=== PATIENT | male | born 1970 ===

== ENCOUNTER 2020-11-17 07:43 | Outpatient (REF) | payer BC, SELFPAY ==
[2020-11-17 08:36] LABS: Basophils Percent Auto 0.6 % (0-2); Hemoglobin 14.8 g/dl (14.0-18.0); Imm Gran Abs Auto 0.03 X10*3/uL (0.00-0.03); Imm Gran Pct Auto 0.4 % (0.0-0.4); Lymphocytes Absolute Auto 1.4 X10*3/uL (1.2-4.9); Mean Corpuscular Hemoglobin 31.7 pg (27.0-33.0); Monocytes Absolute Auto 0.5 X10*3/uL (0.1-1.2); Monocytes Percent Auto 6.3 % (2-11); Neutrophils Percent Auto 70.2 % (45-73); PLT CLUMP 1; Red Blood Count 4.67 X10*6/uL (4.60-5.80); Red Cell Distribution Width 12.6 % (11.0-16.0); SCAN SMEAR FLAG 1
[2020-11-17 08:38] LABS: Eosinophils Absolute Auto 0.2 X10*3/uL (0.0-0.4); Eosinophils Percent Auto 2.8 % (0-4); Hematocrit 43.8 % (42-52); Lymphocytes Percent Auto 19.7 % (20-40); Mean Corpuscular HGB Conc 33.8 g/dl (31.0-36.0); Mean Corpuscular Volume 93.8 fL (80-98); Mean Platelet Volume 9.9 fL (9.4-12.4); Platelet Count 136 X10*3/uL (160-400); White Blood Count 7.1 X10*3/uL (4.8-10.8)
[2020-11-17 09:01] LABS: Alanine Aminotransferase 15 U/L (0-40); Albumin Level 4.3 g/dL (3.5-5.0); Alkaline Phosphatase 83 U/L (39-117); Anion Gap 10 (12-20); Aspartate Amino Transferase 15 U/L (5-37); Bilirubin Total 0.5 mg/dL (0.0-1.0); Blood Urea Nitrogen 14 mg/dL (9-16); Calcium 8.4 mg/dL (8.4-10.2); Carbon Dioxide 28 mmol/L (22-29); Chloride 108 mmol/L (96-108); Cholesterol 170 mg/dL; Estimated Glomerular Filt Rate > 60; Glucose Fasting 96 mg/dL (60-99); HDL Cholesterol 37 mg/dL; LDL Cholesterol Calculated 117 mg/dl; Potassium 4.2 mmol/L (3.3-5.1); Sodium 142 mmol/L (135-145); Triglycerides 80 mg/dL
[2020-11-17 09:21] LABS: Creatinine Urine 180.02 mg/dL; Microalbum/Creatinine Ratio Ur 8.8 ug/mg cr
[2020-11-17 09:23] LABS: Prostate Specific Antigen Scr 3.91 ng/mL (<0.05-4.0); Thyroid Stimulating Hormone 1.01 uIU/mL (0.32-4.0)
== END 2020-11-17 07:44 | disposition home or self-care (01) ==
LOC: HO.LAB 07:43
PROVIDERS: Visit Provider Physician Assistant
DX: I10 Essential (primary) hypertension (principal); Z12.5 Encounter for screening for malignant neoplasm of prostate
CPT/HCPCS: 36415; 80053; 80061; 82043; 84153; 84443; 85025

== ENCOUNTER 2020-11-22 14:08 | Outpatient (REF) | payer BC, SELFPAY | END 2020-11-22 14:09 | disposition home or self-care (01) | LOC: HO.LNP 14:08 | PROVIDERS: Visit Provider Hospitalist | DX: B34.9 Viral infection, unspecified (principal); Z20.822 Contact with and (suspected) exposure to COVID-19 | CPT/HCPCS: U0003; U0005 ==

== ENCOUNTER 2021-04-05 14:41 | Outpatient (REF) | payer BC, SELFPAY ==
--- NOTE | ~2021-04-05 | CT_ITS ---
EXAMINATION: CT CHEST SCREENING CLINICAL INFORMATION: Smoking history COMPARISON: Previous chest CT most recent March 2014 TECHNIQUE: Multidetector volumetric CT imaging of the chest is performed without contrast using low dose technique. Additional 2D coronal and sagittal reformatted images and axial 3D maximum intensity projection (MIP) images are generated on the CT workstation. This CT examination was performed using dose optimization techniques as appropriate, variously including the following: *Automated exposure control *Adjustment of mA and/or kV according to patient size (this includes techniques or standardized protocols for targeted exams where dose is matched to indication/reason for exam; i.e. extremities or head) *Use of iterative reconstruction technique DLP: 98 mGy-cm FINDINGS: LUNGS: There is a 7 mm peripheral or subpleural right upper lobe nodule axial image 58 series 6 that is stable. There is a 5 mm right upper lobe nodule axial image 5 series 6 that is stable. There is a 4 mm peripheral or subpleural right upper lobe nodule axial image 141 series 6 that is stable. There is a 6 mm peripheral or subpleural right upper lobe nodule axial image 258 series 6 that is stable. There is a 5 mm right pulmonary nodule axial image 265 series 6 that is stable. There is a 2 mm peripheral right lower lobe nodule axial image 307 series 6 that is stable. There is a 2 mm peripheral right lower lobe nodule axial image 242 series 6 that is stable. There is a 2 mm peripheral left upper lobe nodule axial image 142 series 6 that is stable. There is a 3 mm peripheral or subpleural lingular nodule axial image 247 series 6 that is stable. There is a 4 x 7 mm peripheral or subpleural left lower lobe nodule axial image 218 series 6 that is stable. MEDIASTINUM: Small mediastinal lymph nodes. No enlarged lymph nodes are seen. The heart does not appear enlarged. There is mild atherosclerotic disease. There is no pericardial effusion. PLEURA: There is no pleural effusion. No pleural mass or thickening. AXILLA: No lymphadenopathy. UPPER ABDOMEN: Unremarkable OSSEOUS STRUCTURES: There are degenerative changes of the spine. CT/CT lung screening IMPRESSION: Small pulmonary nodules stable from previous exam most recent March 2014. ASSESSMENT: Lung-RADS category 2: Benign RECOMMENDATION: Annual low-dose chest CT follow-up recommended.
== END 2021-04-05 14:42 | disposition home or self-care (01) ==
LOC: HO.CT 14:41
PROVIDERS: Visit Provider Surgery
DX: F17.210 Nicotine dependence, cigarettes, uncomplicated (principal); Z80.1 Family history of malignant neoplasm of trachea, bronchus and lung
CPT/HCPCS: 71271

== ENCOUNTER 2021-05-22 11:25 | Outpatient (REF) | payer OTHER, SELFPAY | END 2021-05-22 11:26 | disposition home or self-care (01) | LOC: HO.LNP 11:25 | PROVIDERS: Visit Provider Internal Medicine | DX: Z20.822 Contact with and (suspected) exposure to COVID-19 (principal); J06.9 Acute upper respiratory infection, unspecified | CPT/HCPCS: U0003; U0005 ==

== ENCOUNTER → 2021-10-03 15:14 | Outpatient (REF) | payer OTHER, SELFPAY | LOC: HO.SL 15:14 | PROVIDERS: PCP Physician Assistant; Visit Provider Physician Assistant | DX: R06.81 Apnea, not elsewhere classified (principal) | CPT/HCPCS: 95806 ==

== ENCOUNTER → 2021-10-09 10:42 | Outpatient (BNVA) | payer OTHER, SELFPAY | PROVIDERS: PCP Physician Assistant; Visit Provider Physician Assistant | DX: S30.0XXA Contusion of lower back and pelvis, initial encounter (principal); W01.0XXA Fall on same level from slipping, tripping and stumbling without subsequent striking against object, initial encounter | CPT/HCPCS: 99213 ==

== ENCOUNTER 2022-08-13 05:59 | Outpatient (REF) | payer OTHER, SELFPAY ==
[2022-08-13 07:36] LABS: Hematocrit 46.2 % (42.0-52.0); Hemoglobin 15.5 g/dl (14.0-18.0); Mean Corpuscular HGB Conc 33.5 g/dl (31.0-36.0); Mean Corpuscular Hemoglobin 32.4 pg (27.0-33.0); Mean Corpuscular Volume 96.5 fL (80.0-98.0); Platelet Count 161 X10*3/uL (160-400); Red Blood Count 4.79 X10*6/uL (4.60-5.80); Red Cell Distribution Width 12.7 % (11.0-16.0); White Blood Count 6.2 X10*3/uL (4.8-10.8)
[2022-08-13 08:04] LABS: Alanine Aminotransferase 22 U/L (0-40); Albumin Level 4.4 g/dL (3.5-5.0); Alkaline Phosphatase 89 U/L (39-117); Anion Gap 13 (12-20); Aspartate Amino Transferase 20 U/L (5-37); Bilirubin Total 0.7 mg/dL (0.0-1.0); Blood Urea Nitrogen 14 mg/dL (9-16); Calcium 9.1 mg/dL (8.4-10.2); Carbon Dioxide 29 mmol/L (22-29); Chloride 104 mmol/L (96-108); Cholesterol 202 mg/dL; Estimated Glomerular Filt Rate > 60; Glucose Fasting 97 mg/dL (60-99); HDL Cholesterol 42 mg/dL; LDL Cholesterol Calculated 138 mg/dl; Potassium 4.4 mmol/L (3.3-5.1); Sodium 142 mmol/L (135-145); Total Protein 7.3 g/dL (6.5-8.0); Triglycerides 114 mg/dL
[2022-08-13 08:29] LABS: TSH reflex Free T4 1.13 uIU/mL (0.32-4.0)
[2022-08-13 09:17] LABS: Creatinine Urine 90.54 mg/dL; Microalbum/Creatinine Ratio Ur 8.8 ug/mg cr
[2022-08-13 09:19] LABS: Prostate Specific Antigen Scr 3.45 ng/mL (<0.05-4.0)
== END 2022-08-13 06:00 | disposition home or self-care (01) ==
LOC: HO.LAB 05:59
PROVIDERS: PCP Physician Assistant; Visit Provider Physician Assistant
DX: Z12.5 Encounter for screening for malignant neoplasm of prostate (principal); I10 Essential (primary) hypertension
CPT/HCPCS: 36415; 80053; 80061; 82043; 84153; 84443; 85027

== ENCOUNTER → 2022-10-29 08:47 | Outpatient (BNVA) | payer OTHER, SELFPAY | PROVIDERS: PCP Physician Assistant; Visit Provider Physician Assistant | DX: Z13.89 Encounter for screening for other disorder (principal) ==

== ENCOUNTER → 2022-10-30 13:19 | Outpatient (BNVA) | payer OTHER, SELFPAY | PROVIDERS: PCP Physician Assistant; Visit Provider Physician Assistant Surgical | DX: E66.01 Morbid (severe) obesity due to excess calories (principal); G47.33 Obstructive sleep apnea (adult) (pediatric); Z68.41 Body mass index [BMI] 40.0-44.9, adult | CPT/HCPCS: 99202 ==

== ENCOUNTER 2022-11-05 06:08 | Outpatient (REF) | payer OTHER, SELFPAY ==
--- NOTE | ~2022-11-05 | XR_ITS ---
EXAMINATION: XR CHEST CLINICAL INFORMATION: Bariatric service evaluation. E66.01 COMPARISON: Portable AP chest 08/15/2011 TECHNIQUE: 3 views of the chest were obtained. FINDINGS: Lungs clear. No airspace consolidation or groundglass opacity or effusion. No hyperinflation. Heart size normal. Hilar and mediastinal contours are normal. There are multilevel degenerative changes thoracic spine. XR/XR chest 2V IMPRESSION: Unremarkable examination.
[2022-11-05 06:22] LABS: MANUAL DIFF FLAG NO
--- NOTE | 2022-11-05 06:25 | ECG_ITS ---
Test Reason : e66.01 Blood Pressure : / mmHG Vent. Rate : 078 BPM Atrial Rate : 078 BPM P-R Int : 196 ms QRS Dur : 098 ms QT Int : 390 ms P-R-T Axes : 059 -59 094 degrees QTc Int : 444 ms Normal sinus rhythm Minimal voltage criteria for LVH, may be normal variant ( Rj product ) Abnormal ECG When compared with ECG of 15-AUG-2011 08:30, No significant change was found Referred By: Alejandro Fernandez Electronically Signed By:ISELA GARCIA
[2022-11-05 07:48] LABS: Basophils Percent Auto 0.7 % (0-2); Eosinophils Absolute Auto 0.2 X10*3/uL (0.0-0.4); Eosinophils Percent Auto 2.9 % (0-4); Hemoglobin 16.3 g/dl (14.0-18.0); Imm Gran Abs Auto 0.06 X10*3/uL (0.00-0.03); Imm Gran Pct Auto 1.1 % (0.0-0.4); Lymphocytes Absolute Auto 1.2 X10*3/uL (1.2-4.9); Lymphocytes Percent Auto 21.3 % (20-40); Mean Corpuscular HGB Conc 35.4 g/dl (31.0-36.0); Mean Corpuscular Hemoglobin 32.9 pg (27.0-33.0); Mean Corpuscular Volume 92.9 fL (80.0-98.0); Mean Platelet Volume 9.9 fL (9.4-12.4); Monocytes Absolute Auto 0.4 X10*3/uL (0.1-1.2); Monocytes Percent Auto 7.8 % (2-11); Neutrophils Absolute Auto 3.7 x10*3/uL (2.0-8.3); Neutrophils Percent Auto 66.2 % (45-73); Platelet Count 146 X10*3/uL (160-400); Red Blood Count 4.95 X10*6/uL (4.60-5.80); Red Cell Distribution Width 12.7 % (11.0-16.0); White Blood Count 5.5 X10*3/uL (4.8-10.8)
[2022-11-05 08:18] LABS: Estimated Average Glucose 91 mg/dL; Hemoglobin A1c % 4.8 %
[2022-11-05 08:23] LABS: Alanine Aminotransferase 21 U/L (0-40); Albumin Level 4.4 g/dL (3.5-5.0); Alkaline Phosphatase 87 U/L (39-117); Anion Gap 11 (12-20); Aspartate Amino Transferase 21 U/L (5-37); Blood Urea Nitrogen 16 mg/dL (9-16); C Reactive Protein 0.17 mg/dL (< or = 0.50); Calcium 9.3 mg/dL (8.4-10.2); Carbon Dioxide 29 mmol/L (22-29); Chloride 104 mmol/L (96-108); Cholesterol 207 mg/dL; Estimated Glomerular Filt Rate > 60; Glucose Random 94 mg/dL (60-115); HDL Cholesterol 33 mg/dL; Iron 123 mcg/dL (45-160); LDL Cholesterol Calculated 152 mg/dl; Percent Iron Saturation 41 % (15-50); Potassium 4.1 mmol/L (3.3-5.1); Sodium 140 mmol/L (135-145); Total Iron Binding Capacity 302 mcg/dL (228-428); Total Protein 7.4 g/dL (6.5-8.0); Triglycerides 110 mg/dL; Unsaturated Iron Binding 179 ug/dL
[2022-11-05 08:54] LABS: Ferritin 103 ng/mL (20-250); Folate 12.9 ng/mL (> or = 4.0); Insulin 13 uU/mL (2-29); TSH reflex Free T4 1.31 uIU/mL (0.32-4.0); Vitamin B12 444 pg/mL (200-900)
[2022-11-07 13:19] LABS: Calcium (PTHI) 9.1 mg/dL (8.6-10.3); PTHI 29 pg/mL (16-77)
[2022-11-10 22:19] LABS: Vitamin A 42 mcg/dL (38-98)
[2022-11-11 01:08] LABS: Zinc 104 mcg/dL (60-130)
[2022-11-11 14:33] LABS: Vitamin B1 10 nmol/L (8-30)
== END 2022-11-05 06:09 | disposition home or self-care (01) ==
LOC: HO.LAB 06:08
PROVIDERS: PCP Physician Assistant; Visit Provider Physician Assistant Surgical
DX: E66.01 Morbid (severe) obesity due to excess calories (principal); I10 Essential (primary) hypertension
CPT/HCPCS: 36415; 71046; 80053; 80061; 82306; 82607; 82728; 82746; 83036; 83525; 83540; 83970; 84425; 84443; 84590; 84630; 85025; 86140; 93005

== ENCOUNTER → 2022-11-13 11:08 | Outpatient (BNVA) | payer OTHER, SELFPAY | PROVIDERS: PCP Physician Assistant; Referring Provider Physician Assistant Surgical; Visit Provider Dietitian, Registered | DX: E66.01 Morbid (severe) obesity due to excess calories (principal) | CPT/HCPCS: 97802 ==

== ENCOUNTER → 2022-11-19 09:15 | Outpatient (BNVA) | payer OTHER, SELFPAY | PROVIDERS: PCP Physician Assistant; Visit Provider Physician Assistant Surgical | DX: E66.9 Obesity, unspecified (principal); Z68.41 Body mass index [BMI] 40.0-44.9, adult; Z11.0 Encounter for screening for intestinal infectious diseases | CPT/HCPCS: 99211; 99212 ==

== ENCOUNTER 2022-11-19 16:01 | Outpatient (REF) | payer OTHER, SELFPAY ==
[2022-11-23 12:08] LABS: H Pylori Breath Test Negative (Negative)
== END 2022-11-19 16:02 | disposition home or self-care (01) ==
LOC: HO.LNP 16:01
PROVIDERS: Visit Provider Physician Assistant Surgical
DX: E66.01 Morbid (severe) obesity due to excess calories (principal); I10 Essential (primary) hypertension
CPT/HCPCS: 83013

== ENCOUNTER → 2022-11-25 14:00 | Outpatient (BNVA) | payer OTHER, SELFPAY | PROVIDERS: PCP Physician Assistant; Visit Provider Dietitian, Registered | DX: E66.01 Morbid (severe) obesity due to excess calories (principal); Z71.3 Dietary counseling and surveillance | CPT/HCPCS: 97803 ==

== ENCOUNTER → 2022-11-27 10:00 | Outpatient (BNVA) | payer OTHER, SELFPAY | PROVIDERS: PCP Physician Assistant; Referring Provider Physician Assistant Surgical; Visit Provider Counselor Mental Health | DX: F17.210 Nicotine dependence, cigarettes, uncomplicated (principal); E66.01 Morbid (severe) obesity due to excess calories | CPT/HCPCS: 90791 ==

== ENCOUNTER → 2022-12-09 08:20 | Outpatient (BNVA) | payer OTHER, SELFPAY | PROVIDERS: PCP Physician Assistant; Visit Provider Surgery | DX: E66.01 Morbid (severe) obesity due to excess calories (principal); G47.33 Obstructive sleep apnea (adult) (pediatric); G47.34 Idiopathic sleep related nonobstructive alveolar hypoventilation; R06.81 Apnea, not elsewhere classified; R06.83 Snoring; I10 Essential (primary) hypertension; D69.6 Thrombocytopenia, unspecified; F17.210 Nicotine dependence, cigarettes, uncomplicated | CPT/HCPCS: 99212 ==

== ENCOUNTER 2022-12-23 07:33 | Outpatient (REF) | payer OTHER, SELFPAY ==
--- NOTE | ~2022-12-23 | US_ITS ---
EXAMINATION: US COMPLETE ABDOMEN WITH LIVER ELASTOGRAPHY CLINICAL INFORMATION: Morbid/severe obesity. COMPARISON: None available. TECHNIQUE: Real-time imaging of the abdominal viscera. Noninvasive ultrasound liver fibrosis assessment is performed using Bryan ElastPQ point quantification shear wave elastography (2D-SWE) with a C5-2 MHz transducer. Multiple elastography samples are obtained. FINDINGS: PANCREAS: The visualized pancreatic head is normal in appearance. The body and tail of the pancreas are obscured from visualization by the overlying bowel gas. ABDOMINAL AORTA: The proximal, middle, and distal aortic segments are normal in caliber. The proximal abdominal aorta is slightly prominent but no AAA seen. INFERIOR VENA CAVA: Visualized portions are normal. LIVER: Normal. The liver demonstrates normal size, contour and echogenicity. No focal lesion or intrahepatic biliary duct dilatation. The right lobe measures 19.6 cm in length. The left lobe measures 12.4 cm in length. Portal flow is hepatopedal. Shear wave liver elastography median stiffness is 1.12 m/s (reference: normal median stiffness is 1.3 m/s or less). IQR/median stiffness to assess sampling precision is 0.11 (reference: good quality data set is IQR/median stiffness of 0.15 or less). GALLBLADDER: Gallbladder wall thickness is 0.2 cm The gallbladder is physiologically distended without evidence of stones, sludge, polyps, wall thickening or pericholecystic fluid. COMMON BILE DUCT: Normal in caliber measuring 0.5 cm in diameter. RIGHT KIDNEY: There are anechoic cysts with peripheral calcifications in midpole with cysts measuring 1.0 x 0.9 x 0.9 cm. No renal calculi or focal parenchymal lesions. There is no hydronephrosis. The kidney measures 13.3 cm in maximum dimension. LEFT KIDNEY: There is an anechoic cyst in the upper pole measuring 1.6 x 0.9 x 1.0 cm. There are a few echogenic foci seen throughout the kidneys. No caliectasis No renal calculi or focal parenchymal lesions. The kidney measures 13.4 cm in maximum dimension. SPLEEN: Normal. The spleen measures 15.1 cm in maximum dimension. FREE FLUID: None. US/US abdomen comp w elastography IMPRESSION: 1. Bilateral renal cysts with complex cyst Bosniak type II right kidney. 2. Liver Elastography: Median liver stiffness 1.12 m/s corresponding to high probability normal exam. REFERENCE: Society of Radiologists in Ultrasound Liver Stiffness Thresholds (2020): LIVER STIFFNESS THRESHOLDS: *Liver Stiffness equal or less than 1.3 m/s: High probability of being normal. *Liver Stiffness less than 1.7 m/s: In the absence of other known clinical signs, rules out compensated advanced chronic liver disease. *Liver Stiffness 1.7-2.1 m/s: Suggestive of compensated advanced chronic liver disease but need further test for confirmation. *Liver Stiffness over 2.1 m/s: Rules in compensated advanced chronic liver disease. *Liver Stiffness over 2.4 m/s: Suggestive of clinically significant portal hypertension. QUALITY OF DATA SET: *IQR/Median value equal or less than 0.15 implies a quality data set. *IQR/Median value over 0.15 implies a poor quality data set. SIGNIFICANT CHANGE FROM PRIOR EXAM: Significant change if liver stiffness measurement is 10% or greater from prior exam. OTHER CONSIDERATIONS: The stage of liver fibrosis may be overestimated in the setting of acute hepatitis, liver inflammation, elevated liver function tests, hepatic vascular congestion, obstructive cholestasis, non-fasting state, and infiltrative diseases such as amyloidosis and lymphoma. In some patients with NAFLD, the liver stiffness thresholds for compensated advanced chronic liver disease may be lower. In causes other than viral hepatitis and NAFLD, liver stiffness thresholds are not well established.
--- NOTE | ~2022-12-23 | FL_ITS ---
EXAMINATION: XR FLUOROSCOPY UPPER GI WITH AIR CLINICAL INFORMATION: Severe obesity due to excess calories COMPARISON: None available. TECHNIQUE: Upper GI air-contrast study. FINDINGS: Following oral administration of thick barium and effervescent granules there is normal propagation of bolus from the oral cavity through the pharynx, esophagus into stomach without obstruction, narrowing or stricture. There is no extrinsic compression. On placing patient supine and prone lying the course, caliber and peristalsis of the stomach, duodenal bulb and the sweep is normal. There is slight increased flocculation of barium in the distal stomach question increased hyperacidity. The mucosal pattern of the stomach, duodenal bulb and the sweep is normal. FLUOROSCOPY TIME: 2.2 minutes DOSE AREA PRODUCT: 90.099 uGy-m2 (microgray-meter squared) FL/FL upper GI w air IMPRESSION: Unremarkable upper GI air-contrast study.
== END 2022-12-23 07:34 | disposition home or self-care (01) ==
LOC: HO.US 07:33
PROVIDERS: PCP Physician Assistant; Visit Provider Physician Assistant Surgical
DX: Z01.818 Encounter for other preprocedural examination (principal); E66.01 Morbid (severe) obesity due to excess calories; K21.9 Gastro-esophageal reflux disease without esophagitis; I10 Essential (primary) hypertension
CPT/HCPCS: 74246; 76705; 76981

== ENCOUNTER 2023-08-17 06:07 | Outpatient (REF) | payer OTHER, SELFPAY ==
[2023-08-17 07:44] LABS: Hematocrit 48.6 % (42.0-52.0); Hemoglobin 16.6 g/dl (14.0-18.0); Mean Corpuscular HGB Conc 34.2 g/dl (31.0-36.0); Mean Corpuscular Hemoglobin 32.9 pg (27.0-33.0); Mean Corpuscular Volume 96.4 fL (80.0-98.0); Mean Platelet Volume 10.1 fL (9.4-12.4); Platelet Count 147 X10*3/uL (160-400); Red Blood Count 5.04 X10*6/uL (4.60-5.80); White Blood Count 5.3 X10*3/uL (4.8-10.8)
[2023-08-17 08:15] LABS: Alanine Aminotransferase 13 U/L (0-40); Albumin Level 4.1 g/dL (3.5-5.0); Alkaline Phosphatase 84 U/L (39-117); Anion Gap 11 (12-20); Aspartate Amino Transferase 15 U/L (5-37); Bilirubin Total 0.7 mg/dL (0.0-1.0); Blood Urea Nitrogen 10 mg/dL (9-16); Calcium 8.8 mg/dL (8.4-10.2); Carbon Dioxide 29 mmol/L (22-29); Chloride 105 mmol/L (96-108); Cholesterol 181 mg/dL (<200); Estimated Glomerular Filt Rate > 60; Glucose Fasting 100 mg/dL (60-99); HDL Cholesterol 42 mg/dL (>40); LDL Cholesterol Calculated 122 mg/dL (<100); Potassium 3.8 mmol/L (3.3-5.1); Sodium 141 mmol/L (135-145); Triglycerides 85 mg/dL (<150)
[2023-08-17 09:09] LABS: Creatinine Urine 162.99 mg/dL; Microalbum/Creatinine Ratio Ur 23.9 ug/mg cr (<30)
== END 2023-08-17 06:08 | disposition home or self-care (01) ==
LOC: HO.LAB 06:07
PROVIDERS: PCP Physician Assistant; Visit Provider Physician Assistant
DX: I10 Essential (primary) hypertension (principal); E78.9 Disorder of lipoprotein metabolism, unspecified; D69.6 Thrombocytopenia, unspecified
CPT/HCPCS: 36415; 80053; 80061; 82043; 82570; 85027

== ENCOUNTER 2023-08-19 07:40 | Outpatient (AMB) | payer OTHER, SELFPAY ==
[2023-08-19 07:52] VITALS: BP 152/98; PULSE 82; O2SAT 95; BMI 39.3
--- NOTE | 2023-08-19 07:52 | A.OFFPC_ITS ---
Vital Signs 08/19/23 07:52 Height 5 ft 11 in Weight 282 lb BMI 39.3 BP 152/98 H Blood Pressure Location Lt brachial Position Sitting Pulse 82 Pulse Source Pulse Oximeter Pulse Oximetry (%) 95 Oxygen Delivery Method Room Air Intake Visit Reasons: f/u HTN/ weight Intake Note: Patient had 5 cups of coffee this morning. Allergies No Known Allergies Allergy (Verified 08/19/23 08:03) Medication List - Last Reconciled 08/19/23 by Juwan Gupta PA-C amlodipine 10 mg PO DAILY 90 days lisinopril 40 mg PO DAILY 90 days oxycodone 5 mg PO Q6H PRN 7 days Tobacco use date assessed: 02/17/23 Dental Screening Dental Screen Date: 08/19/23 Did you have a dental visit in the last 12 months?: No Did you have a dental problem in the last 6 months where you did not have access to dental care?: No Was dental information given to patient?: Patient has dentist HPI f/u HTN/ weight HPI Details Joe is a 52-year-old male here today for follow-up visit. . Patient's past medical history significant for hypertension, pulmonary nodule, lower back pain with radiculopathy left side, obesity. ? Obstructive sleep apnea--interval history--> was not able to complete a full sleep study. Does have an elevated [place] Sleepiness Scale score. . Obesity: He does understand his BMI remains above 30. Has lost weight since last office visit by changing his diet. .. Tobacco dependency: He does understand he needs to quit smoking. He has cut down his smoking to 1-2 cigarettes per day. .. Hyperlipidemia: Most recent lipid panel showing much improved total cholesterol and LDL. ? .. ? HTN: Blood pressure today in office elevated, had 5 cups of coffee this morning.. .? He does check his blood pressure seldomly at home and reports 120s to 130 systolic.? Otherwise denies any chest discomfort, headaches, vision issues. .. Thrombocytopenia: Most recent platelet count 147 and is fairly stable. He otherwise denies any abnormal bleeding a bruising. Unclear etiology to patient's thrombocytopenia the likely due to his smoking and alcohol intake. Did have spleno megaly on abdominal imaging. ? .. ? Lumbar spine pain: Patient uses low-dose oxycodone 5mg on a very p.r.n. basis, 1 script 21 tabs will last 6 months. He does report taking a tramadol 50 mg from a friend which provided him better more long-lasting relief of his back pain. Will transition to using tramadol instead of oxycodone. ? .. ? Pulmonary nodule:? Most recent lung cancer screening done in October 2020 showing stable nodule repeat 1 year. Laboratory Tests 11/17/20 08/13/22 11/05/22 08:00 06:02 06:21 RBC Plt Count 136 L 161 146 L Creatinine Fasting Glucose Cholesterol 207 LDL Cholesterol, C alc 152 Urine Microalbumin 08/17/23 08/17/23 08/17/23 06: 06: 06:25 RBC 5.04 Plt Count Creatinine 0.66 Fasting Glucose 100 H Cholesterol 181 LDL Cholesterol, C alc 122 H Urine Microalbumin 39.0 PFSH Medical History (Updated 08/19/23 @ 08:21 by Juwan Gupta PA-C) Erectile dysfunction Obesity Lumbar spondylosis HTN (hypertension) Surgical History S/P appendectomy History of colonoscopy History of carpal tunnel surgery Family History Mother Lung cancer Father Lung cancer Brother No problems noted. 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 1. Little interest or pleasure in doing things: not at all 2. Feeling down, depressed, or hopeless: not at all 3. Trouble falling or staying asleep, or sleeping too much: not at all 4. Feeling tired or having little energy: not at all 5. Poor appetite or overeating: not at all 6. Feeling bad about yourself - or that you are a failure or have let yourself or your family down: not at all 7. Trouble concentrating on things, such as reading the newspaper or watching television: not at all 8. Moving or speaking so slowly that other people could have noticed. Or the opposite - being so fidgety or restless that you have been moving around a lot more than usual: not at all 9. Thoughts that you would be better off or of hurting yourself in some way: not at all Total score: 0 Depression Screening Interpretation: Negative Depression Screening Done: Yes 79764 - PHQ-9 Billing: Yes Source: Developed by Drs. Marcio Loomis, Georgina Alcantara, Camden Camacho and colleagues, with an educational dontrell from [employer]. Thrive Questionnaire Date Thrive assessed: 02/17/23 AUDIT C Alcohol Use Questionnaire (AUDIT-C) 1. How often do you have a drink containing alcohol?: 2-4 times a month 2. How many drinks containing alcohol do you have on a typical day when you are drinking?: 1 or 2 Total Score: 2 LASHON-7 AMB Questionnaire LASHON-7 Date LASHON - 7 assessed: 02/17/23 Source: Developed by Drs. Marcio Loomis, Georgina Alcantara, Camden Camacho and colleagues, with an educational dontrell from [employer]. Review of Systems Const Denies headache(s) Eyes Denies loss of vision ENT Denies vertigo, Denies dizziness, Denies headache(s) and Denies sore throat Card Denies chest pain, Denies leg edema and Denies lightheadedness Resp Denies cough, Denies hemoptysis and Denies wheezing GI Denies abdominal pain, Denies melena, Denies constipation, Denies diarrhea and Denies vomiting Denies dysuria, Denies urinary frequency and Denies urinary urgency Musc Denies arthralgias, Denies joint swelling, Denies numbness and Denies tingling Neuro Denies Abnormal speech present, Denies behavioral changes, Denies vertigo, Denies dizziness, Denies headache(s), Denies loss of vision, Denies memory loss, Denies numbness and Denies tingling Psych Denies anxiety, Denies behavioral changes, Denies depression, Denies memory loss and Denies panic attacks Nimesh/Lymph Denies easy bleeding and Denies easy bruising Aller/Immun Denies wheezing Physical exam (Primary Care) Vital Signs: Last Vital Signs Pulse 82 08/19/23 07:52 BP 152/98 H 08/19/23 07:52 Pulse Ox 95 08/19/23 07:52 Oxygen Delivery Method Room Air 08/19/23 07:52 BMI result Body Mass Index 39.3 BMI Assessment/Plan discussion: High Tobacco/Smoking Status: Tobacco use Status Tobacco use date assessed 02/17/23 08/19/23 07:58 Patient Tobacco Use Status Former Tobacco user 08/19/23 07:58 Tobacco use type Cigarette 08/19/23 07:58 e-Cigarette/Vaping Use Never Used 08/19/23 07:58 Are you ready to quit: No Tobacco cessation counseling provided: Yes Items discussed: Nicotine replacement and QuitWorks Relapse Prevention: discussed the importance of a supportive environment, discussed negative mood or depression after quitting, weight gain after smoking is common and discussed dietary, exercise and/or lifestyle changes Number of minutes spent counselin CPT code: 52569 - 4-10 Minutes PHQ-9: PHQ-9 Score PHQ-9: Total score 0 08/19/23 08:04 Depression Screening Interpretation: Negative Thrive Assessment: Date of Thrive Assessment Date Thrive assessed 02/17/23 08/19/23 07:58 Const Other: Morbidly obese General: healthy appearing, no acute distress, alert and awake Nutritional Appearance: well nourished Orientation/consciousness: oriented to person, oriented to place and oriented to time HENMT Ears: TM's normal bilaterally General nose exam: Normal nasal mucous membranes and turbinates present Eyes Conjunctivae: conjunctivae normal Sclerae: sclerae normal Pupils: Equal, round and reactive pupils present Neck Neck: Yes no lymphadenopathy and Yes no JVD Thyroid: Thyroid normal Carotids: bruit on the left Resp Effort & Inspection: normal respiratory effort and not tachypneic Auscultation: no crackles, no rales, no rhonchi and no wheezes Cardio Rate: regular rate Rhythm: regular rhythm Heart sounds: Murmur heart sound present systolic and normal S1 and S2 GI Palpation (GI): Soft to palpation, nontender, no hepatomegaly and no splenomegaly Auscultation: normal bowel sounds Skin General skin exam: no rashes or lesions noted and dry skin Neuro General: oriented to person, oriented to place and oriented to time Cranial nerves: Yes Equal, round and reactive pupils present Speech: No Abnormal speech present Gait exam (Neuro): Normal gait present Motor exam (neuro): no tremor noted Extrem Right upper extremity: full ROM Left upper extremity: full ROM Right lower extremity: full ROM; no edema Left lower extremity: full ROM; no edema Psych Mental Status: mental status grossly normal Speech and movement: Normal speech and movement present Affect: normal affect Attitude: cooperative Thought process: Normal thought process present Assessment and Plan Assessment & Plan (1) HTN (hypertension): Code(s): I10 - Essential (primary) hypertension Qualifiers: Hypertension type: essential hypertension Qualified Code(s): I10 - Essential (primary) hypertension Plan: Patient's blood pressure acceptable today in office. Will continue amlodipine and lisinopril with goal blood pressure remain below 140/90 (2) Obesity: Code(s): E66.9 - Obesity, unspecified Qualifiers: Body mass index: BMI 40.0-44.9 Obesity classification: adult class 3 (BMI >= 40) Obesity type: due to excess calories Serious obesity comorbidity presence: with serious comorbidity Qualified Code(s): E66.01 - Morbid (severe) obesity due to excess calories; Z68.41 - Body mass index [BMI] 40.0-44.9, adult; Z68.41 - Body mass index [BMI] 40.0-44.9, adult Plan: Patient has lost a significant amount of weight since last office visit. Has been changing his diet. Not interested in bariatric surgery at this time (3) Thrombocytopenia: Code(s): D69.6 - Thrombocytopenia, unspecified Plan: Unclear eat etiology to patient's thrombocytopenia. most recent plt count stable 147 . Will continue to follow platelet count, advised to stop smoking and drinking alcohol. 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 Will discontinue he is of oxycodone and transition to p.r.n. use of tramadol 50 mg. (5) Tobacco dependence: Code(s): F17.200 - Nicotine dependence, unspecified, uncomplicated Plan: He does report he has cut down smoking 1-2 cigarettes per day. Not interested in nicotine replacement at this time. (6) Borderline high cholesterol: Code(s): E78.9 - Disorder of lipoprotein metabolism, unspecified Plan: Have noted borderline high total cholesterol. Most recent lipid panel showing much improved total cholesterol and LDL per Does have cardiovascular risks being a smoker and having high blood pressure. Advised on starting statin therapy to reduce his cardiovascular risk though patient declines at this time. He will work on lifestyle modifications to reduce his LDL below 130 (7) Pulmonary nodule: Code(s): R91.1 - Solitary pulmonary nodule (8) Newly recognized murmur: Code(s): R01.1 - Cardiac murmur, unspecified Plan: Noted a systolic murmur on physical exam today. No overt signs of Congestive heart failure on physical exam. Will send for echocardiogram to evaluate cardiac valves. (9) Left carotid bruit: Code(s): R09.89 - Other specified symptoms and signs involving the circulatory and respiratory systems Plan: Noted left carotid bruit on physical exam. Will send for bilateral carotid ar inkolas ultrasounds. Orders: Orders Microalbumin, Random (w Creat) Today I10 - Essential (primary) hypertension Comprehensive [place]. Panel Fast Today I10 - Essential (primary) hypertension US carotid duplex BI Today R09.89 - Other specified symptoms and signs involving the circulatory and respiratory systems Lipid Panel Today E78.9 - Disorder of lipoprotein metabolism, unspecified Complete Blood Count no Diff Today D69.6 - Thrombocytopenia, unspecified CA echo transthoracic complete Today R01.1 - Cardiac murmur, unspecified Prostate Specific Antigen Scr Today R01.1 - Cardiac murmur, unspecified, Z12.5 - Encounter for screening for malignant neoplasm of prostate Referrals Thoracic Surgery Referral F17.200 - Nicotine dependence, unspecified, uncomplicated, R91.1 - Solitary pulmonary nodule Medications: New tramadol 50 mg PO Q8H 7 days PRN 21 tabs 0RF pain M47.816 - Spondylosis without myelopathy or radiculopathy, lumbar region Refilled amlodipine 10 mg PO DAILY 90 days 90 tabs 1RF I10 - Essential (primary) hypertension lisinopril 40 mg PO DAILY 90 days 90 tabs 1RF I10 - Essential (primary) hypertension Coding Level of Care Code Est Pt Level 4 (34523) Diagnoses Essential hypertension I10 Hypertension type: essential hypertension Class 3 severe obesity due to excess calories with serious comorbidity and body mass index (BMI) of 40.0 to 44.9 in adult E66.01; Z68.41; Z68.41 Body mass index: BMI 40.0-44.9 Obesity classification: adult class 3 (BMI >= 40) Obesity type: due to excess calories Serious obesity comorbidity presence: with serious comorbidity Thrombocytopenia D69.6 Lumbar spondylosis M47.816 Tobacco dependence F17.200 Borderline high cholesterol E78.9 Pulmonary nodule R91.1 Newly recognized murmur R01.1 Left carotid bruit R09.89 Additional Codes Vital Signs *Quality* - CPT code: 09702 - 4-10 Minutes ([id number])
== END 2023-08-19 08:24 | disposition home or self-care (01) ==
PROVIDERS: PCP Physician Assistant; Visit Provider Physician Assistant
DX: I10 Essential (primary) hypertension (principal); E66.01 Morbid (severe) obesity due to excess calories; Z68.41 Body mass index [BMI] 40.0-44.9, adult; D69.6 Thrombocytopenia, unspecified; M47.816 Spondylosis without myelopathy or radiculopathy, lumbar region; F17.200 Nicotine dependence, unspecified, uncomplicated; E78.9 Disorder of lipoprotein metabolism, unspecified; R91.1 Solitary pulmonary nodule; R01.1 Cardiac murmur, unspecified; R09.89 Other specified symptoms and signs involving the circulatory and respiratory systems
CPT/HCPCS: 99214; 99406

== ENCOUNTER → 2023-10-05 14:30 | Outpatient (REF) | payer OTHER, SELFPAY ==
--- NOTE | 2023-10-05 14:33 | CA_ITS ---
Transthoracic Echocardiogram Amended Patient (Last, First, Middle): Joe Esquivel A Gender: Male Date of : 1970 Age: 53 Procedure Date: 10/05/2023 Procedure Type: Transthoracic Echocardiogram Location: OP Height: 182.88 cm Weight: 127.01 kg BSA: 2.46 m2 Heart Rate: 83 bpm BP: 170 / 110 mmHg Director Of Recruitment And Admissions: SB Referring MD: Juwan Gupta PA-C Symptoms: R01.1 - Cardiac murmur, unspecified Study Quality: Adequate ECG Rhythm: Sinus Conclusions: - The left ventricular systolic function is normal. The visually estimated ejection fraction is between 60-65%. - There is severely increased left ventricular wall thickness. - There is mild calcification of the aortic valve. - No obvious valvular pathology seen on this study. - There is mild dilatation of the sinuses of Valsalva measuring 4.30 cm and mild dilatation of the ascending aorta measuring 4.20 cm. Findings Left Ventricle Normal left ventricular cavity size. There is severely increased left ventricular wall thickness. The left ventricular systolic function is normal. The visually estimated ejection fraction is between 60-65%. Evidence suggests grade I (mild) diastolic dysfunction. LV peak GLS -13%. Right Ventricle Mildly increased right ventricular cavity size. There is normal right ventricular systolic function. Atria Mild biatrial enlargement. Aortic Valve There is a normal trileaflet aortic valve. There is mild calcification of the aortic valve. There is no aortic valve stenosis. There is no aortic valve regurgitation. Mitral Valve The mitral valve appears normal. There is no mitral valve regurgitation. There is no mitral valve stenosis. Pulmonic Valve The pulmonic valve is likely normal. Tricuspid Valve Normal tricuspid valve structure. Tricuspid regurgitation envelope is inadequate for calculation of right ventricular systolic pressure. Great Vessels There is mild dilatation of the sinuses of Valsalva measuring 4.30 cm and mild dilatation of the ascending aorta measuring 4.20 cm. Venous The inferior vena cava is mildly dilated and collapses greater than 50% with inspiration. Pericardium/Pleural There is no evidence of pericardial effusion. Prior Study Comparison No prior study available for comparison. Technical issues present throughout the time of reporting. Accuracy of report has been verified as much possible. Recommendations, Care & Conclusions No obvious valvular pathology seen on this study. Measurements 2D Linear Measurements IVSd: 2.17 0.6-0.9/0.6-1.0 cm LVIDd: 5.47 3.9-5.3/4.2-5.9 cm LVIDd Index: 2.22 2.4-3.2/2.2-3.1 cm/m2 LVIDs: 3.62 2.0-3.6 cm LVPWd: 2.03 0.7-1.1 cm LA Diam: 5.40 2.7-3.8/3.0-4.0 cm LAIDs Index: 2.20 1.5-2.3 cm/m2 LV Mass: 770.19 67-162/88-224 g LV Mass Index: 313.08 43-95/49-115 g/m2 LVOT Diam: 2.70 3.0+(-)1.3 cm 2D Volumes LA Vol: 39.90 2D Systolic Function EF 4C: 60.80 >55% EF 2C: 54.50 >55% EF BiP: 58.90 >55% Mitral Valve MV Pk E: 0.95 MV PK A: 1.08 MV Decel Time: 240.00 E/A: 0.90 E'Lateral: 4.57 E'Medial: 5.11 E/E' Med: 18.50 E/E' Lat: 20.70 PHT: 70.00 MVA PHT: 3.14 Decel [place]: 3.94 Aortic Valve AoV Pk Leo: 2.26 AoV Mn Leo: 1.66 AoV VTI: 0.43 AoV Pk Grad: 20.00 Aov Mn Grad: 13.00 RONALD Cont.VTI: 3.25 LVOT LVOT Pk Leo: 1.32 LVOT Mn Leo: 0.90 LVOT VTI: 0.24 LVOT Pk Grad: 7.00 LVOT Mn Grad: 4.00 LVOT Diam: 2.70 LVOT Area: 5.73 Diastolic Function MV Pk E: 0.95 MV Pk A: 1.08 E/A: 0.90 E'Medial: 5.11 E/E' Med: 18.50 E' Laterial: 4.57 E/E' Lat: 20.70 Right Ventricle TAPSE (mm): 27.00 TVS' Leo: 13.60 Tricuspid Valve RA Press: 15.00 Great Vessels Aorta Sinus of Valsalva: 4.30 2.0-3.5 cm Ao Asc: 4.20 2.1-3.4 cm Pulmonary Valve PV Pk Leo: 0.83 Peak PV Grad: 3.00 Updated in Other Vendor System with Status of Final Campbell Madera MD electronically signed on 10/05/2023 4:14:50 PM with status of Final
== END ==
LOC: HO.CARD 14:30
PROVIDERS: PCP Physician Assistant; Visit Provider Physician Assistant
DX: R01.1 Cardiac murmur, unspecified (principal)
CPT/HCPCS: 93306; 93356

== ENCOUNTER → 2023-10-05 14:33 | Outpatient (BNV) | payer OTHER, SELFPAY | PROVIDERS: PCP Physician Assistant; Visit Provider Internal Medicine | DX: I35.8 Other nonrheumatic aortic valve disorders (principal) | CPT/HCPCS: 93306 ==

== ENCOUNTER 2023-10-08 14:31 | Outpatient (REF) | payer OTHER, SELFPAY ==
--- NOTE | ~2023-10-08 | US_ITS ---
EXAMINATION: US EXTRACRANIAL CAROTID DUPLEX, BILATERAL CLINICAL INFORMATION: Left carotid bruit COMPARISON: None available. TECHNIQUE: Real-time ultrasound and Doppler techniques (integrating B-mode 2-D vascular images, Doppler spectral analysis and color-flow Doppler imaging) were utilized to interrogate the extracranial carotid arteries, the vertebral arteries and proximal subclavian arteries bilaterally. The degree of stenosis is determined by criteria similar to NASCET. FINDINGS: Right Side: 1. There is no atherosclerotic plaque seen in the bifurcation/proximal ICA region. 2. The common carotid artery PSV proximally is 119 cm/s and distally 76 cm/s. 3. The proximal internal carotid artery velocities are 54 cm/s systolic and 23 cm/s diastolic. 4. The proximal external carotid artery PSV is 117 cm/s. 5. The vertebral artery shows antegrade flow. 6. The subclavian artery waveforms are normal. Left Side: 1. There is no atherosclerotic plaque seen in the bifurcation/proximal ICA region. 2. The common carotid artery PSV proximally is 90 cm/s and distally 59 cm/s. 3. The proximal internal carotid artery velocities are 34 cm/s systolic and 13 cm/s diastolic. 4. The proximal external carotid artery PSV is 87 cm/s. 5. The vertebral artery shows antegrade flow. 6. The subclavian artery waveforms are normal. US/US carotid duplex BI IMPRESSION: 1. RIGHT: Normal right internal carotid artery without atherosclerotic plaque or hemodynamically significant stenosis. 2. LEFT: Normal left internal carotid artery without atherosclerotic plaque or hemodynamically significant stenosis. 3. Cardiac arrhythmia noted during today's examination.
== END 2023-10-08 14:32 | disposition home or self-care (01) ==
LOC: HO.US 14:31
PROVIDERS: PCP Physician Assistant; Visit Provider Physician Assistant
DX: R09.89 Other specified symptoms and signs involving the circulatory and respiratory systems (principal)
CPT/HCPCS: 93880

== ENCOUNTER 2023-11-20 10:59 | Outpatient (AMB) | payer OTHER, SELFPAY ==
--- NOTE | 2023-11-20 11:05 | A.OFFVIS_ITS ---
Intake Intake Visit Reasons: LDCT SD Allergies No Known Allergies Allergy (Verified 08/19/23 08:03) HPI HPI Comments History of Present Illness Details Joe is a pleasant 53 year old male, current 1/2 ppd smoker with a 42.5 PYH. Patient has been smoking since age 10 for 43 years at 1 ppd. Denies marijuana use. Reports multiple chemical exposures x 30+ years to asbestos, nickel, soot, coal dust, iron dust, and diesel fumes. Admits second hand smoke exposure. Reports mother and father, both smokers, with h/o lung cancer. Denies personal history of cancers. Denies chest CT in last year. Denies recent travel outside the [place]. Denies testing positive for COVID. Admits receiving COVID Vaccine. Denies fever, chills, chest pain, new cough, hemoptysis or unintentional weight loss. Lung Cancer Screening Questionnaire reviewed with patient by provider. Shared Decision Making Completed. Discussed in detail with patient, the risk versus benefit of LDCT screening. Patient in agreement of proceeding with scan. [facility] Medical History (Updated 10/13/23 @ 12:55 by Juwan Gupta PA-C) Erectile dysfunction Obesity Lumbar spondylosis HTN (hypertension) Surgical History S/P appendectomy History of colonoscopy History of carpal tunnel surgery Family History Mother Lung cancer Father Lung cancer Brother No problems noted. 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 This patient meets criteria for LDCT for lung cancer screening purposes and is asymptomatic. Offered smoking cessation, will enter referral to nurse navigator. Patient has been scheduled for a low dose chest CT for screening purposes at [facility]. We discussed how the results will be obtained depending on CT findings. RADS 1 and RADS 2 will receive a letter with results and will follow up for annual LDCT. Patient informed they will be contacted at later date to schedule upcoming LDCT scan. RADS 3 and RADS 4 will receive a telephone call, or an office visit after reviewing case at our Lung Cancer Conference to determine when the next LDCT will be scheduled or further interventions that may be needed. Discussed importance of screening program and compliance with yearly LDCT scan as scheduled. Risks, benefits, and alternatives were discussed in detail and patient agrees to proceed. Risks discussed include but are not limited to: radiation exposure and possibility of additional intervention for benign disease. Benefits include detection of lung cancer at an early stage. A copy of today's visit and LDCT results will be sent to patient's PCP. Incidental findings on LDCT are PCP's responsibility. If there are incidental findings, our office will ensure that PCP office is aware of these findings. All questions were answered and patient is in agreement of plan. Orders: Referrals Nurse Navigator Referral F17.200 - Nicotine dependence, unspecified, uncomplicated Coding Level of Care Code Lung Cancer Screening G0296 Diagnoses Nicotine dependence F17.200
== END 2023-11-20 15:07 | disposition home or self-care (01) ==
PROVIDERS: PCP Physician Assistant; Visit Provider Nurse Practitioner Family
DX: F17.200 Nicotine dependence, unspecified, uncomplicated (principal)
CPT/HCPCS: G0296

== ENCOUNTER 2023-11-20 11:16 | Outpatient (REF) | payer OTHER, SELFPAY ==
--- NOTE | ~2023-11-20 | CT_ITS ---
EXAMINATION: CT CHEST SCREENING CLINICAL INFORMATION: Personal history of nicotine dependence. COMPARISON: 04/05/2021 TECHNIQUE: Multidetector volumetric CT imaging of the chest is performed without contrast using low dose technique. Additional 2D coronal and sagittal reformatted images and axial 3D maximum intensity projection (MIP) images are generated on the CT workstation. This CT examination was performed using dose optimization techniques as appropriate, variously including the following: *Automated exposure control *Adjustment of mA and/or kV according to patient size (this includes techniques or standardized protocols for targeted exams where dose is matched to indication/reason for exam; i.e. extremities or head) *Use of iterative reconstruction technique DLP: 106 mGy-cm FINDINGS: LUNGS: Some minimal emphysematous changes are present. Bibasilar atelectasis is seen. A small pulmonary cyst is present in the retrocardiac region in the left lower lobe. Again noted are multiple lung nodules all unchanged from prior. Some of the largest are: 7 mm right upper lobe posterior nodule (5:78 compare prior 4:92) 7 mm right upper lobe nodule (5:109 compare prior 4:118) 5 mm right middle lobe nodule (5:308 compare prior 4:301) No new or suspicious lung nodule is seen. MEDIASTINUM: The mediastinum is unremarkable. Aortic leaflet calcification present. CORONARY ARTERY CALCIFICATION: None visualized on this study. PLEURA: There is no pleural effusion. No pleural mass or thickening. AXILLA: No lymphadenopathy. UPPER ABDOMEN: Unremarkable. OSSEOUS STRUCTURES: Degenerative changes are present in the spine with some mild anterior wedging of midthoracic vertebral bodies, unchanged. CT/CT lung screening IMPRESSION: No evidence of malignancy. Stable pulmonary nodules. ASSESSMENT: Lung-RADS category 2: Benign. RECOMMENDATION: Routine annual low-dose CT screening in 12 months.
== END 2023-11-20 11:17 | disposition home or self-care (01) ==
LOC: HO.CT 11:16
PROVIDERS: PCP Physician Assistant; Visit Provider Nurse Practitioner Family
DX: F17.210 Nicotine dependence, cigarettes, uncomplicated (principal)
CPT/HCPCS: 71271; G0296

== ENCOUNTER 2023-12-30 10:42 | Outpatient (AMB) | payer OTHER, SELFPAY ==
[2023-12-30 11:04] VITALS: BP 120/76; PULSE 80; BMI 42.1
--- NOTE | 2023-12-30 11:04 | MHC.OFFVIS ---
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 Has longstanding history of hypertension which as per him has been well controlled he does not monitor blood pressures at home. Currently takes medications for it. He has also had struggled with his weight and had Rj the bariatric surgical program and has lost 30 lb but has regained it over the winter. He has hyperlipidemia which is untreated at this point time. Strong family history of diabetes and cardiovascular disease. He denies any clear symptoms of exertional chest pain or shortness of breath. Denies any heart failure symptoms. Comes for follow-up. He said few weeks ago he had a transient weakness in his left lower extremity where he could not scrap picker his left lower leg, was smoking weed at that time. He also has longstanding history of smoking. He denies any orthopnea, PND, leg edema. Denies any palpitations. [facility], [facility] Medical History Erectile dysfunction Obesity Lumbar spondylosis HTN (hypertension) Surgical History S/P appendectomy History of colonoscopy History of carpal tunnel surgery Family History Mother Lung cancer CAD (coronary artery disease) Father Lung cancer CAD (coronary artery disease) Brother CAD (coronary artery disease) Sister CAD (coronary artery disease) Social History Housing: House Alcohol intake: current Alcohol intake frequency: a few times a month Alcohol type: beer Patient Tobacco Use Status: Current everyday Tobacco user Tobacco use type: Cigarette Cigarettes Per Day: 10 Years Smoked: 43 , prior 42 yrs x 1 ppd e-Cigarette/Vaping Use: Never Used Second Hand Smoke Exposure: Yes service: No Current occupational status: employed and unemployed 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 Cognitive needs: No Hearing needs: No Vision needs: No Review of Systems Const Denies chills, Denies daytime sleepiness, Denies fatigue, Denies fever(s), Denies frequent falls, Denies poor appetite, Denies snoring, Denies stops breathing during sleep, Denies weakness, Denies weight gain and Denies weight loss Eyes Denies loss of vision ENT Denies dizziness and Denies hearing loss Card Denies chest pain, Denies claudication, Denies leg edema, Denies lightheadedness, Denies palpitations, Denies dyspnea, Denies dyspnea on exertion and Denies orthopnea Resp Denies cough, Denies excessive phlegm production, Denies dyspnea, Denies dyspnea on exertion, Denies snoring and Denies wheezing GI Denies abdominal pain, Denies hematochezia, Denies change in bowel habits, Denies nausea and Denies vomiting Denies dysuria and Denies urinary frequency Musc Denies arthralgias, Denies muscle weakness, Denies numbness and Denies other (frequent falls) Skin/Breast Denies nail changes and Denies rash Neuro Denies Abnormal speech present, Denies dizziness, Denies frequent falls, Denies loss of vision, Denies memory loss, Denies numbness and Denies weakness Psych Denies depression and Denies memory loss Endo Denies fatigue and Denies palpitations Nimesh/Lymph Reports easy bruising and Reports other (anemia) Aller/Immun Denies wheezing Physical Exam Vital Signs: Last Vital Signs Pulse 80 12/30/23 11:04 BP 120/76 12/30/23 11:04 BMI result Body Mass Index 42.1 Const General: cooperative, comfortable, no acute distress, alert, awake and Physically active Nutritional Appearance: obese morbidly obese Orientation/consciousness: patient oriented x3 Limitations: no limitations HEENT Head: Yes normocephalic and Yes atraumatic Neck Neck: Yes trachea midline, Yes supple and Yes no JVD Resp Effort & Inspection: normal respiratory effort Auscultation: clear to auscultation bilaterally Cardio Jugular venous distension: no JVD Palpation: normal PMI Rate: regular rate Rhythm: regular rhythm Heart sounds: S1 normal heart sound present, S2 normal heart sound present, no click, no gallops, Murmur heart sound present systolic early, no rubs and Other heart sounds present (S4 present) GI Auscultation: normal bowel sounds Skin General skin exam: no rashes or lesions noted Neuro General: patient oriented x3 and no focal motor deficits Speech: No Abnormal speech present Extrem General: Yes no clubbing, cyanosis or edema Psych Appearance: grossly normal Office Procedures EKG Details: EKG shows normal sinus rhythm with left anterior fascicular block [id number], Complete Assessment & Plan Assessment & Plan (1) Hypertensive heart disease: Code(s): I11.9 - Hypertensive heart disease without heart failure Plan: Patient has severe LVH which is suggestive hypertensive heart disease. Other etiology need to be ruled out including untreated sleep apnea. Morbid obesity also is contributing to his LVH. This possibility of infiltrative this is especially hemochromatosis given his strong family history of diabetes in multiple family members and siblings. Will check for the same. If his iron studies are within normal limits no further testing is indicated including cardiac MRI. Complications associated with hypertensive heart disease and development of heart failure was discussed with him. He has no clinical signs or symptoms of heart failure at this point time. There is no indication for diuretic therapy. Aggressive management of blood pressure needs to be pursued. Blood pressure is currently optimized. Encouraged to monitor blood pressure at home maintain a log. Goal blood pressure less than 130/84. Low-salt diet was discussed. Stress mitigation strategies were discussed. Workup for sleep apnea with home sleep study was recommended. Given his multiple risk factors including premature cardiac in his family members will suggest a exercise stress test to evaluate for myocardial ischemia which may be asymptomatic. (2) Ascending aorta dilatation: Code(s): I77.810 - Thoracic aortic ectasia Plan: Mild thoracic aortic aneurysm which appears to be probably atherosclerotic and/or hypertension related. Aggressive management should be pursued. Management of this was discussed. There is no indication for surgical intervention. Follow-up in 1 year's time. Continue aggressive control blood pressure as above. Given his atherosclerotic risk factors, will start him on statins to goal LDL less than 70 mg/dL. Also concerning symptoms of recent focal neurologic motor weakness in left lower extremity suggestive TIA. Suggest low-dose aspirin therapy. Will follow up in the clinic in 6 weeks time after above-mentioned test. Thank you for allowing me to partake in his care Orders: Orders RT home sleep study Today CRP High Sensitivity 6 Weeks E78.5 - Hyperlipidemia, unspecified, I10 - Essential (primary) hypertension CA stress test Today R94.31 - Abnormal electrocardiogram [ECG] [EKG] Lipid Panel 6 Weeks I10 - Essential (primary) hypertension, I25.10 - Atherosclerotic heart disease of [place] coronary artery without angina pectoris Ferritin Today I10 - Essential (primary) hypertension Transferrin Today I10 - Essential (primary) hypertension Medications: New aspirin (Ecotrin Low Strength) 81 mg PO DAILY 30 tabs 5RF atorvastatin 40 mg PO DAILY 30 tabs 5RF Coding Level of Care Code Est Pt Level 4 (75616) Diagnoses Hypertensive heart disease I11.9 Ascending aorta dilatation I77.810 CPT Codes EKG - CPT: 36540-[id number], Complete ([id number])
== END 2023-12-30 11:40 | disposition home or self-care (01) ==
PROVIDERS: PCP Physician Assistant; Visit Provider Internal Medicine Cardiovascular Disease
DX: I11.9 Hypertensive heart disease without heart failure (principal); I77.810 Thoracic aortic ectasia
CPT/HCPCS: 93010; 99214

== ENCOUNTER → 2023-12-30 10:42 | Outpatient (BNVA) | payer OTHER, SELFPAY | PROVIDERS: PCP Physician Assistant; Visit Provider Internal Medicine Cardiovascular Disease | DX: I11.9 Hypertensive heart disease without heart failure (principal); I77.810 Thoracic aortic ectasia; E78.5 Hyperlipidemia, unspecified | CPT/HCPCS: 93005; 99212 ==

== ENCOUNTER → 2024-01-13 07:43 | Outpatient (REF) | payer OTHER, SELFPAY ==
--- NOTE | 2024-01-13 07:46 | CA_ITS ---
Acquisition Time: 2024-01-13 08:08:47 Total Exercise Time: 00:06:34 Test Indications: Abnormal ECG Medications: Protocol: MARYURI Max HR: 142 BPM 86% of Pred: 165 BPM Max BP: 216/082 mmHG Max Work Load: 7.8 METS Exercise stress test exercise exercise 6 min and 34 sec opf Maryuri protocol achieving 86% MPHR, without chest discomfort, with mild to moderate SOB, with isoalted PACs, atrial tach, isolated PVCs, multifocal ventriclar cuplet, vtach, with hypertensive response to exercise, without EKG changes. No ST changes on EKGs, with hypertensive response to exercise, mild to moderate SOB and ectopy suggestive of ischemia. Breathing and blood pressure returned to baseline. Test reviewed with Dr. Madera. Referred By: Blake Parks Overread By: Lindsey Victoria
== END ==
LOC: HO.CARD 07:43
PROVIDERS: PCP Physician Assistant; Visit Provider Internal Medicine Cardiovascular Disease
DX: R94.31 Abnormal electrocardiogram [ECG] [EKG] (principal)
CPT/HCPCS: 93017

== ENCOUNTER → 2024-01-13 07:46 | Outpatient (BNV) | payer OTHER, SELFPAY | PROVIDERS: PCP Physician Assistant; Visit Provider Nurse Practitioner | DX: R06.02 Shortness of breath (principal); R00.0 Tachycardia, unspecified | CPT/HCPCS: 93016; 93018 ==

== ENCOUNTER 2024-02-22 07:49 | Outpatient (AMB) | payer OTHER, SELFPAY ==
--- NOTE | 2024-02-22 07:53 | A.OFFPC_ITS ---
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 Cardiac Required: No Accompanied by: Self / Same As Patient Allergies No Known Allergies Allergy (Verified 02/22/24 08:04) Medication List - Last Reconciled 02/22/24 by Juwan Gupta PA-C amlodipine 10 mg PO DAILY 90 days aspirin (Ecotrin Low Strength) 81 mg PO DAILY atorvastatin 40 mg PO DAILY lisinopril 40 mg PO DAILY 90 days tramadol 50 mg PO Q8H PRN 7 days Tobacco use date assessed: 02/22/24 Dental Screening Dental Screen Date: 02/22/24 Did you have a dental visit in the last 12 months?: Yes Did you have a dental problem in the last 6 months where you did not have access to dental care?: No Was dental information given to patient?: Patient has dentist HPI Annual Exam-NEEDS A1C HPI Details Joe is a 53-year-old male here today a routine annual physical . Patient's past medical history significant for hypertension, hypertensive heart disease, pulmonary nodule, lower back pain with radiculopathy left side, obesity. ? Obstructive sleep apnea--interval history--> was not able to complete a full sleep study. Does have an elevated [place] Sleepiness Scale score. . Obesity: He has unfortunately gained weight since last office visit.. He was in a weight management program though has not been able to lose any weight. He does admit to dietary indiscretion, drinking more alcohol etc.. ... Tobacco dependency: He does understand he needs to quit smoking. He reports he continues to smoke and even more at this time. He is willing now to do nicotine patches and use Dermabond to keep the patches on his skin. .. Hyperlipidemia: Has followed with Cardiology in his atorvastatin was increased with goal LDL to be optimally below 70 due to family history and cardiac risks. ? .. ? HTN: Blood pressure today in office elevated, had 5 cups of coffee this morning.. .? He does check his blood pressure seldomly at home and reports 120s to 130 systolic.? Otherwise denies any chest discomfort, headaches, vision issues. .. Hypertensive heart disease: Now followed by Cardiology. Echocardiogram showing LVH consistent with hypertensive heart disease. .. Thrombocytopenia: Most recent platelet count 147 and is fairly stable. He otherwise denies any abnormal bleeding a bruising. Unclear etiology to patient's thrombocytopenia the likely due to his smoking and alcohol intake. Did have spleno megaly on abdominal imaging. ? .. ? Lumbar spine pain: Patient uses low-dose oxycodone 5mg on a very p.r.n. basis, 1 script 21 tabs will last 6 months. He reports he continues to have some worsening lower lumbar spine pain that gets in the way of his daily activities. He is willing to see pain management. ? .. ? Pulmonary nodule:? Most recent lung cancer screening done in October 2020 showing stable nodule repeat 1 year. Vaccine: UTD with Tdap, Declines PCV , flu and COVID , Unclear if had varicella. Colon cancer screenin- normal - repeat 10 yrs [facility] Medical History Erectile dysfunction Obesity Lumbar spondylosis HTN (hypertension) Surgical History S/P appendectomy History of colonoscopy History of carpal tunnel surgery Family History (Updated 02/22/24 @ 08:28 by Juwan Gupta PA-C) Mother Lung cancer CAD (coronary artery disease) Father Lung cancer CAD (coronary artery disease) Brother CAD (coronary artery disease) Sister CAD (coronary artery disease) Social History (Updated 02/22/24 @ 08:09 by Juwan Gupta PA-C) Housing: House Alcohol intake: current Alcohol intake frequency: 0-2 drinks per day Alcohol type: beer Patient Tobacco Use Status: Current someday Tobacco user Tobacco use type: Cigarette Cigarettes Per Day: 10 Years Smoked: 43 , prior 42 yrs x 1 ppd e-Cigarette/Vaping Use: Never Used Second Hand Smoke Exposure: Yes service: No Current occupational status: unemployed Current occupation: Final [employer] Current occupational exposures/hazards: No Cognitive needs: No Hearing needs: No Vision needs: No Questionnaire PHQ-9 Over the last 2 weeks, how often have you been bothered by any of the following problems? 1. Little interest or pleasure in doing things: not at all 2. Feeling down, depressed, or hopeless: not at all 3. Trouble falling or staying asleep, or sleeping too much: not at all 4. Feeling tired or having little energy: not at all 5. Poor appetite or overeating: not at all 6. Feeling bad about yourself - or that you are a failure or have let yourself or your family down: not at all 7. Trouble concentrating on things, such as reading the newspaper or watching television: not at all 8. Moving or speaking so slowly that other people could have noticed. Or the opposite - being so fidgety or restless that you have been moving around a lot more than usual: not at all 9. Thoughts that you would be better off or of hurting yourself in some way: not at all Total score: 0 Depression Screening Interpretation: Negative Depression Screening Done: Yes 41091 - PHQ-9 Billing: Yes Source: Developed by Drs. Marcio Loomis, Georgina Alcantara, Camden Camacho and colleagues, with an educational dontrell from [employer]. Thrive Questionnaire Date Thrive assessed: 02/22/24 I am a: Patient What is your living situation today?: I have a steady place to live Within the past 12 months, did the food you bought not last and you didn't have the money to get more?: Never true Within the past 12 months, did you worry whether your food would run out before you got money to buy more?: Never true Do you have trouble paying for medicines?: No Do you have trouble getting transportation to medical appointments?: No Do you have trouble paying your heating and electricity bill?: No Do you have trouble taking care of your child, family member or friend?: No Do you have trouble with day-to-day activities such as bathing, preparing meals, shopping, managing finances, etc.?: No Are you currently unemployed and looking for a job?: No Are you interested in more education?: No Please select the resources that you would like help with: None Currently or been in a relationship where the following occur: no concerns reported THRIVE Score: 0 AUDIT C Alcohol Use Questionnaire (AUDIT-C) 1. How often do you have a drink containing alcohol?: 2-4 times a month 2. How many drinks containing alcohol do you have on a typical day when you are drinking?: 1 or 2 3. How often do you have six or more drinks on one occasion?: Never Total Score: 2 LASHON-7 AMB Questionnaire LASHON-7 Date LASHON - 7 assessed: 02/22/24 Feeling nervous, anxious, or on edge: 0 = Not at all Not being able to stop or control worryin = Not at all Worrying too much about different things: 0 = Not at all Trouble relaxin = Not at all Being so restless that it is hard to sit still: 0 = Not at all Becoming easily annoyed or irritable: 0 = Not at all Feeling afraid as if something awful might happen: 0 = Not at all Total LASHON-7 score (0-4 normal; 5-9 mild; 10-14 moderate; 15-21 severe): 0 Source: Developed by Drs. Marcio Loomis, Georgina Alcantara, Camden Camacho and colleagues, with an educational dontrell from [employer]. LASHON-7 Assessment Billing LASHON-7 Assessment Tool: LASHON-7 Assessment 19054 Review of Systems Const Denies body aches, Denies chills, Denies excessive sweating, Denies fatigue, Denies fever(s) and Denies headache(s) Eyes Denies blurry vision ENT Denies dysphagia, Denies vertigo, Denies dizziness, Denies headache(s), Denies hearing loss and Denies tinnitus Card Denies chest pain, Denies chest pain with activity, Denies syncope, Denies irregular heart rhythm and Denies dyspnea Resp Denies chest congestion, Denies cough, Denies hemoptysis, Denies dyspnea and Denies wheezing GI Denies abdominal pain, Denies melena, Denies hematochezia, Denies coffee ground emesis, Denies dysphagia, Denies diarrhea, Denies nausea and Denies vomiting Denies difficulty urinating, Denies dysuria, Denies urinary frequency, Denies urinary hesitancy and Denies urinary urgency Musc Denies arthralgias, Denies limited range of motion, Denies muscle cramps and Denies muscle weakness Skin/Breast Denies rash and Denies skin ulcer Neuro Denies Abnormal speech present, Denies confusion, Denies vertigo, Denies dizziness, Denies syncope, Denies headache(s), Denies memory loss and Denies seizure-like activity Psych Denies anxiety, Denies confusion, Denies depression, Denies memory loss, Denies panic attacks and Denies paranoia Endo Denies excessive sweating, Denies fatigue, Denies flushing, Denies polydipsia and Denies polyuria Aller/Immun Denies wheezing Physical exam (Primary Care) Vital Signs: Last Vital Signs BP 148/100 H 02/22/24 07:56 BMI result Body Mass Index 42.4 BMI Assessment/Plan discussion: High BMI High, discussed plan: lifestyle, weight reduction, dietary and physical activity Tobacco/Smoking Status: Tobacco use Status Tobacco use date assessed 02/22/24 02/22/24 08:01 Patient Tobacco Use Status Current someday Tobacco 02/22/24 08:01 Tobacco use type Cigarette 02/22/24 08:01 e-Cigarette/Vaping Use Never Used 02/22/24 08:01 Are you ready to quit: Yes Tobacco cessation counseling provided: Yes Items discussed: Nicotine replacement Relapse Prevention: discussed the importance of a supportive environment, discussed negative mood or depression after quitting, weight gain after smoking is common and discussed dietary, exercise and/or lifestyle changes Number of minutes spent counselin CPT code: 52107 - 4-10 Minutes PHQ-9: PHQ-9 Score PHQ-9: Total score 0 02/22/24 08:01 Depression Screening Interpretation: Negative Thrive Assessment: Date of Thrive Assessment Date Thrive assessed 02/22/24 02/22/24 08:01 Currently or been in a relationship where the following occur: no concerns reported Const General: cooperative, comfortable, no acute distress, alert and awake; No confusion Orientation/consciousness: oriented to person, oriented to place, patient oriented x3 and No confusion HENMT Head: Yes normocephalic Ears: external ears normal and TM's normal bilaterally Face and sinus: No sinus tenderness Mouth: Normal oral and palatal mucosa present and tongue normal Teeth and gingiva: dentition normal and gingiva normal Throat: Yes posterior oropharynx normal, Yes tonsils normal and Yes uvula midline Eyes Conjunctivae: conjunctivae normal Sclerae: sclerae normal Pupils: Equal, round and reactive pupils present EOM: EOMs intact bilaterally Direct Ophthalmoscopy: No no photophobia Neck Neck: Yes no lymphadenopathy, No tender and Yes no JVD Thyroid: Thyroid normal Carotids: no bruits Chest Chest palpation & inspection: no tenderness Resp Effort & Inspection: normal respiratory effort, no audible wheezes, not labored and no stridor Auscultation: no crackles, no rales, no rhonchi and no wheezes Cardio Jugular venous distension: no JVD Rate: regular rate, not bradycardic and not tachycardic Rhythm: regular rhythm Bruits: no carotid bruits Peripheral pulses: Peripheral pulses 2+ throughout GI Inspection: Yes normal to inspection, No abdominal wall ecchymosis and No visible herniation Palpation (GI): Soft to palpation, nontender, no guarding, not rigid and No hepatosplenomegaly present Auscultation: normoactive bowel sounds General: Yes no CVA tenderness Back/Spine/Pelvis Back: no CVA tenderness and No back tenderness Cervical Spine: cervical ROM normal Thoracic/Lumbar Spine: thoracic and lumbar spine normal to inspection, straight leg raise negative bilaterally, No thoraco-lumbar ROM limited and No lumbar spinal tenderness Skin Lesions: no lesions Rashes: no rashes Wounds: no wounds Neuro General: oriented to person, oriented to place, patient oriented x3, CN's II-XI intact bilaterally and No confusion Cranial nerves: Yes Equal, round and reactive pupils present and Yes Normal accommodation reflex present Cognition (Neuro): normal cognition Speech: No Abnormal speech present Gait exam (Neuro): Normal gait present Motor exam (neuro): 5/5 motor strength present throughout Extrem Right upper extremity: full ROM; no cyanosis Left upper extremity: full ROM; no cyanosis Right lower extremity: no edema Left lower extremity: no edema Psych Appearance: grossly normal Mental Status: mental status grossly normal Affect: normal affect Attitude: cooperative Thought process: Normal thought process present Assessment and Plan Assessment & Plan (1) Annual physical exam: Code(s): Z00.00 - Encounter for general adult medical examination without abnormal findings (2) HTN (hypertension): Code(s): I10 - Essential (primary) hypertension Qualifiers: Hypertension type: essential hypertension Qualified Code(s): I10 - Essential (primary) hypertension Plan: Patient's blood pressure slightly elevated today in office. Will continue amlodipine and lisinopril with goal blood pressure remain below 140/90 (3) Hypertensive heart disease: Code(s): I11.9 - Hypertensive heart disease without heart failure Qualifiers: Heart failure presence: without heart failure Qualified Code(s): I11.9 - Hypertensive heart disease without heart failure Plan: Now followed by [facility]. Most recent echocardiogram showing LVH consistent with hypertensive heart disease. Did have cardiac stress test that did show some concerning evidence of ischemia. Has been started on aspirin and higher dose of statin with goal LDL to be below 70. (4) Obesity: Code(s): E66.9 - Obesity, unspecified Qualifiers: Obesity type: due to excess calories Obesity classification: adult class 3 (BMI >= 40) Serious obesity comorbidity presence: with serious comorbidity Body mass index: BMI 40.0-44.9 Qualified Code(s): E66.01 - Morbid (severe) obesity due to excess calories; Z68.41 - Body mass index [BMI] 40.0- 44.9, adult; Z68.41 - Body mass index [BMI] 40.0-44.9, adult Plan: Unfortunately has gained weight since last office visit. Was in a weight management program though has not been successful for him. He is willing to try GLP 1 to help lose weight, also does multiple comorbidities due to his weight. (5) Thrombocytopenia: Code(s): D69.6 - Thrombocytopenia, unspecified Plan: Unclear eat etiology to patient's thrombocytopenia. most recent plt count stable 147 . Will continue to follow platelet count, advised to stop smoking and drinking alcohol. (6) Lumbar spondylosis: Code(s): M47.816 - Spondylosis without myelopathy or radiculopathy, lumbar region Plan: Unfortunately continues to have lower lumbar spine pain that often radiates down right lower extremity. He has not interested in physical therapy at this time though would like to speak with pain management about pain reduction modality. He continues to use low-dose oxycodone on a very limited p.r.n. basis. Advised on use of acetaminophen rather than ibuprofen or naproxen due to cardiovascular risks he has. Will also supply him with baclofen 10 mg to use on an as needed basis. (7) Tobacco dependence: Code(s): F17.200 - Nicotine dependence, unspecified, uncomplicated Plan: He reports he has increased the amount of smoking he has been doing. He is now willing to try nicotine patches again. (8) Pulmonary nodule: Code(s): R91.1 - Solitary pulmonary nodule (9) Right shoulder tendinitis: Code(s): M77.8 - Other enthesopathies, not elsewhere classified Plan: He reports he has been having worsening shoulder pain. He is interested in getting a cortisone injection in his right shoulder. He reports he does have a rotator cuff tear in his right shoulder. Orders: Referrals Pain Management Referral M47.816 - Spondylosis without myelopathy or radiculopathy, lumbar region Orthopedics Referral M77.8 - Other enthesopathies, not elsewhere classified Medications: New nicotine 1 patch transdermal DAILY 14 days 14 ea 0RF F17.200 - Nicotine dependence, unspecified, uncomplicated semaglutide (weight loss) (Wegovy) administer weeks 1 through 4 of therapy 0.25 mg (0.5 mL) subcut QWEEK 4 weeks 2 mL 0RF E66.01 - Morbid (severe) obesity due to excess calories, Z68.41 - Body mass index [BMI] 40.0-44.9, adult oxycodone Partial Fill upon patient request. 5 mg PO Q8H 7 days PRN 21 tabs 0RF pain M47.816 - Spondylosis without myelopathy or radiculopathy, lumbar region nicotine 1 patch transdermal DAILY 14 days 14 ea 0RF F17.200 - Nicotine dependence, unspecified, uncomplicated acetaminophen ER (Tylenol Arthritis Pain) 650 mg PO Q12H 30 days 60 tabs 3RF M19.90 - Unspecified osteoarthritis, unspecified site, M47.816 - Spondylosis without myelopathy or radiculopathy, lumbar region baclofen 10 mg PO BEDTIME 20 days 20 tabs 1RF M47.816 - Spondylosis without myelopathy or radiculopathy, lumbar region Discontinued tramadol Discontinued Reason: Doctor's Order 50 mg PO Q8H 7 days PRN 21 tabs 0RF pain M47.816 - Spondylosis without myelopathy or radiculopathy, lumbar region Patient Instructions: Goal: Blood pressure to be below 140/90, LDL optimally to be below 70, STOP SMOKING! Barriers: Adherence to physical activity and healthy eating habits Coding Level of Care Code Est Pt Prev Care 40-64y(15480) Diagnoses Annual physical exam Z00.00 Essential hypertension I10 Hypertension type: essential hypertension Hypertensive heart disease without heart failure I11.9 Heart failure presence: without heart failure Class 3 severe obesity due to excess calories with serious comorbidity and body mass index (BMI) of 40.0 to 44.9 in adult E66.01; Z68.41; Z68.41 Obesity type: due to excess calories Obesity classification: adult class 3 (BMI >= 40) Serious obesity comorbidity presence: with serious comorbidity Body mass index: BMI 40.0-44.9 Thrombocytopenia D69.6 Lumbar spondylosis M47.816 Tobacco dependence F17.200 Pulmonary nodule R91.1 Right shoulder tendinitis M77.8 Additional Codes LASHON-7 Assessment Billing - LASHON-7 Assessment Tool: LASHON-7 Assessment 20383 ([id number]) Vital Signs *Quality* - CPT code: 72197 - 4-10 Minutes ([id number])
[2024-02-22 07:56] VITALS: BP 148/100; BMI 42.4
== END 2024-02-22 08:33 | disposition home or self-care (01) ==
PROVIDERS: PCP Physician Assistant; Visit Provider Physician Assistant
DX: Z00.00 Encounter for general adult medical examination without abnormal findings (principal); E66.01 Morbid (severe) obesity due to excess calories; Z68.41 Body mass index [BMI] 40.0-44.9, adult; D69.6 Thrombocytopenia, unspecified; F17.210 Nicotine dependence, cigarettes, uncomplicated; I10 Essential (primary) hypertension; I11.9 Hypertensive heart disease without heart failure; M47.816 Spondylosis without myelopathy or radiculopathy, lumbar region; R91.1 Solitary pulmonary nodule; M77.8 Other enthesopathies, not elsewhere classified
CPT/HCPCS: 99396; 99406

== ENCOUNTER 2024-02-23 08:50 | Outpatient (AMB) | payer OTHER, SELFPAY ==
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
[2024-02-23 08:58] VITALS: BP 173/103; PULSE 76; O2SAT 96; BMI 28.4
== END 2024-02-23 09:32 | disposition home or self-care (01) ==
PROVIDERS: PCP Physician Assistant; Visit Provider Nurse Practitioner Family
DX: M47.816 Spondylosis without myelopathy or radiculopathy, lumbar region (principal); M51.36 Other intervertebral disc degeneration, lumbar region; M53.3 Sacrococcygeal disorders, not elsewhere classified; M25.551 Pain in right hip; M54.50 Low back pain, unspecified
CPT/HCPCS: 99204

== ENCOUNTER 2024-02-23 08:50 | Outpatient (REF) | payer OTHER, SELFPAY ==
[2024-02-23 10:15] LABS: Hematocrit 45.1 % (42.0-52.0); Hemoglobin 15.9 g/dl (14.0-18.0); Mean Corpuscular HGB Conc 35.3 g/dl (31.0-36.0); Mean Corpuscular Hemoglobin 33.8 pg (27.0-33.0); Mean Corpuscular Volume 95.8 fL (80.0-98.0); Mean Platelet Volume 9.6 fL (9.4-12.4); Platelet Count 140 X10*3/uL (160-400); Red Blood Count 4.71 X10*6/uL (4.60-5.80); Red Cell Distribution Width 12.7 % (11.0-16.0); White Blood Count 5.3 X10*3/uL (4.8-10.8)
[2024-02-23 11:15] LABS: Prostate Specific Antigen Scr 3.83 ng/mL (<0.05-4.0)
[2024-02-23 11:17] LABS: Anion Gap 11 (12-20); Carbon Dioxide 31 mmol/L (22-29); Chloride 103 mmol/L (96-108); Potassium 4.1 mmol/L (3.3-5.1); Sodium 141 mmol/L (135-145)
[2024-02-23 11:18] LABS: Alanine Aminotransferase 23 U/L (0-40); Albumin Level 4.3 g/dL (3.5-5.0); Alkaline Phosphatase 96 U/L (39-117); Aspartate Amino Transferase 21 U/L (5-37); Bilirubin Total 0.8 mg/dL (0.0-1.0); Calcium 9.3 mg/dL (8.4-10.2); Cholesterol 135 mg/dL (<200); Estimated Glomerular Filt Rate > 60; Glucose Fasting 98 mg/dL (60-99); HDL Cholesterol 41 mg/dL (>40); LDL Cholesterol Calculated 77 mg/dL (<100); Total Protein 7.5 g/dL (6.5-8.0); Triglycerides 89 mg/dL (<150)
[2024-02-23 11:50] LABS: Blood Urea Nitrogen 11 mg/dL (9-16)
[2024-02-23 12:02] LABS: Creatinine Urine 149.93 mg/dL
== END 2024-02-23 08:51 | disposition home or self-care (01) ==
LOC: HO.XRAY 08:50
PROVIDERS: Absent Provider Physician Assistant; PCP Physician Assistant; Referring Provider Internal Medicine Cardiovascular Disease; Visit Provider Nurse Practitioner Family
DX: M47.816 Spondylosis without myelopathy or radiculopathy, lumbar region (principal); M51.36 Other intervertebral disc degeneration, lumbar region; M53.3 Sacrococcygeal disorders, not elsewhere classified; M25.551 Pain in right hip; R01.1 Cardiac murmur, unspecified; I10 Essential (primary) hypertension; E78.9 Disorder of lipoprotein metabolism, unspecified; D69.6 Thrombocytopenia, unspecified; Z12.5 Encounter for screening for malignant neoplasm of prostate
CPT/HCPCS: 36415; 80053; 80061; 82043; 82570; 84153; 85027; 99202

== ENCOUNTER 2024-02-25 15:15 | Outpatient (AMB) | payer OTHER, SELFPAY ==
[2024-02-25 15:24] VITALS: BP 130/64; PULSE 82; BMI 42.2
--- NOTE | 2024-02-25 15:24 | A.OFFVIS_ITS ---
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 Allergies No Known Allergies Allergy (Verified 02/25/24 15:27) Medication List - Last Reconciled 02/25/24 by TRANG CraigC acetaminophen ER (Tylenol Arthritis Pain) 650 mg PO Q12H 30 days amlodipine 10 mg PO DAILY 90 days aspirin (Ecotrin Low Strength) 81 mg PO DAILY atorvastatin 40 mg PO DAILY baclofen 10 mg PO BEDTIME 20 days lidocaine 5% leave on most painful area for up to 12 hrs topical lisinopril 40 mg PO DAILY 90 days nicotine 1 patch transdermal DAILY 14 days nicotine 1 patch transdermal DAILY 14 days oxycodone 5 mg PO Q8H PRN 7 days semaglutide (weight loss) (Wegovy) 0.25 mg (0.5 mL) subcut QWEEK 4 weeks HPI HPI 2 mth f/up ett/ home sleep / lipids NS: Details: Joe is a 53-year-old male with past medical history of morbid obesity, hypertension who recently had an echocardiogram showing severe LVH, enlarged thoracic aorta. He was evaluated by Dr. Parks in Cardiology and underwent a stress test and now presents for follow-up. A sleep study was ordered however he declines this test. Today he reports that he feels fine with no concerning symptoms. He states that the sleep study he had in the past was not accurate. He does not believe he has sleep apnea. He says even if he was found to have sleep apnea he would not be able to wear a mask as he sleeps on his stomach. He has no concerning chest discomfort at rest or with activity. No shortness of breath, PND, orthopnea or edema. No lightheadedness, presyncope, syncope, falls. 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 He says he has been obese his entire life and this is a normal weight for him. His primary complaint is of sciatica which acts up at times. His home blood pressures run with a systolic 130-140. PFSH Medical History Erectile dysfunction Obesity Lumbar spondylosis HTN (hypertension) Surgical History S/P appendectomy History of colonoscopy History of carpal tunnel surgery Family History Mother Lung cancer CAD (coronary artery disease) Father Lung cancer CAD (coronary artery disease) Brother CAD (coronary artery disease) Sister CAD (coronary artery disease) Social History Housing: House Alcohol intake: current Alcohol intake frequency: 0-2 drinks per day Alcohol type: beer Patient Tobacco Use Status: Current someday Tobacco user Tobacco use type: Cigarette Cigarettes Per Day: 10 Years Smoked: 43 , prior 42 yrs x 1 ppd e-Cigarette/Vaping Use: Never Used Second Hand Smoke Exposure: Yes service: No Current occupational status: unemployed 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 Current occupational exposures/hazards: No Cognitive needs: No Hearing needs: No Vision needs: No Review of Systems Const All systems reviewed & are unremarkable except as noted in HPI and below ENT Denies dizziness Card Denies chest pain, Denies chest pain at rest, Denies chest pain with activity, Denies rapid heart rate, Denies pedal edema, Denies edema, Denies leg edema, Denies lightheadedness, Denies palpitations, Denies dyspnea, Denies dyspnea on exertion and Denies orthopnea Resp Denies cough, Denies dyspnea and Denies dyspnea on exertion GI Denies hematochezia and Denies change in stool character Musc Denies abnormal gait, Denies limited range of motion, Denies muscle cramps, Denies muscle weakness, Denies numbness, Denies radiating pain into limb, Denies stiffness and Denies tingling Neuro Denies abnormal gait, Denies dizziness, Denies numbness and Denies tingling Endo Denies palpitations Physical Exam Vital Signs: Last Vital Signs Pulse 82 02/25/24 15:24 BP 130/64 02/25/24 15:24 BMI result Body Mass Index 42.2 Const General: cooperative, healthy appearing, comfortable and no acute distress Orientation/consciousness: patient oriented x3 Neck Neck: Yes normal visual inspection and Yes no JVD Resp Effort & Inspection: normal respiratory effort Auscultation: clear to auscultation bilaterally, no rales, no rhonchi and no wheezes Cardio Jugular venous distension: no JVD Rate: regular rate Rhythm: regular rhythm Heart sounds: S1 normal heart sound present, S2 normal heart sound present, no murmurs and no rubs Neuro General: patient oriented x3 Extrem General: Yes normal to inspection, No no pedal edema and No calf tenderness Psych Appearance: grossly normal Mental Status: mental status grossly normal Speech and movement: Normal speech and movement present Assessment & Plan Assessment & Plan (1) Hypertensive heart disease: Code(s): I11.9 - Hypertensive heart disease without heart failure Category: Medical Qualifiers: Heart failure presence: without heart failure Qualified Code(s): I11.9 - Hypertensive heart disease without heart failure Plan: History of hypertension. Recent echocardiogram showing EF 60-65%, severe LVH, no valve abnormalities. He has been on amlodipine and lisinopril for blood pressure control. He underwent a exercise stress test on 01/13/2024 with exercise 6.5 minutes, frequent atrial and ventricular ectopy, moderate shortness of breath, no ST changes. Sleep study was ordered and he declines. Prior sleep study in 2021 showed severe obstructive sleep apnea. He states that the test was a false positive. He does not believe he has sleep apnea and will not wear a mask if he is found to have it. His blood pressure is normal range at this time, 130/64. Home blood pressures reported as systolic 130-140. He continues on amlodipine and lisinopril. He did have frequent ectopy during his stress test. Will order a Holter monitor to evaluate. Anticipate starting a beta- mora once test results are reviewed. Will help with further blood pressure control. Plan to call him when results are available. Cardiology follow-up in office 3 months, sooner if needed. (2) HTN (hypertension): Code(s): I10 - Essential (primary) hypertension Category: Medical Qualifiers: Hypertension type: essential hypertension Qualified Code(s): I10 - Essential (primary) hypertension Plan: As above (3) Morbid obesity: Code(s): E66.01 - Morbid (severe) obesity due to excess calories Category: Medical Plan: Benefit of weight loss and increasing physical activity reviewed (4) JONATHAN (obstructive sleep apnea): Code(s): G47.33 - Obstructive sleep apnea (adult) (pediatric) Category: Medical Plan: He denies this diagnosis. He has not interested in completing a repeat sleep study (5) Ascending aorta dilatation: Code(s): I77.810 - Thoracic aortic ectasia Category: Medical Plan: Last echo shows sinus of Valsalva 4.3 cm, ascending aorta 4.2 cm. Will continue to follow with periodic echoes (6) Abnormal stress ECG: Code(s): R94.39 - Abnormal result of other cardiovascular function study Category: Medical Plan: Atrial and ventricular ectopy noted Plan Time spent on chart review, documentation, interview assessment Orders: Orders ECG 3 day holter monitor 02/25/24 R94.39 - Abnormal result of other cardiovascular function study Coding Level of Care Code Est Pt Level 4 (34406) Diagnoses Hypertensive heart disease without heart failure I11.9 Heart failure presence: without heart failure Essential hypertension I10 Hypertension type: essential hypertension Morbid obesity E66.01 JONATHAN (obstructive sleep apnea) G47.33 Ascending aorta dilatation I77.810 Abnormal stress ECG R94.39 Time Spent (min) 28
== END 2024-02-25 16:25 | disposition home or self-care (01) ==
PROVIDERS: PCP Physician Assistant; Visit Provider Nurse Practitioner Family
DX: I11.9 Hypertensive heart disease without heart failure (principal); I10 Essential (primary) hypertension; E66.01 Morbid (severe) obesity due to excess calories; G47.33 Obstructive sleep apnea (adult) (pediatric); I77.810 Thoracic aortic ectasia; R94.39 Abnormal result of other cardiovascular function study
CPT/HCPCS: 99214

== ENCOUNTER → 2024-02-25 15:15 | Outpatient (BNVA) | payer OTHER, SELFPAY | PROVIDERS: PCP Physician Assistant; Visit Provider Nurse Practitioner Family | DX: I11.9 Hypertensive heart disease without heart failure (principal); I77.810 Thoracic aortic ectasia; R94.39 Abnormal result of other cardiovascular function study; E66.01 Morbid (severe) obesity due to excess calories; G47.33 Obstructive sleep apnea (adult) (pediatric); Z68.41 Body mass index [BMI] 40.0-44.9, adult | CPT/HCPCS: 99212 ==

== ENCOUNTER 2024-03-15 13:44 | Outpatient (AMB) | payer OTHER, SELFPAY ==
--- NOTE | 2024-03-15 13:45 | MHC.OFFVIS ---
Intake Visit Reasons: New Pt - right shoulder tendonitis Intake Note: Joe is a 53 year old male who presents as a new patient with complaints of right shoulder pain. Pt states he is having pain in both shoulders.Pt states the right is much worse. Pt states he had a torn rotator cuff in his right shoulder in 2013. Pt states he would like a cortisone injection in his right shoulder today. Pt denies any previous surgeries in his shoulders but has had previous injections in his right shoulder years ago. He has tried oxycodone and Aleve which gave him mild relief. He wishes to hold off on surgery if at all possible. Allergies No Known Allergies Allergy (Verified 03/15/24 13:45) Medication List - Last Reconciled 03/15/24 by Crescencio Chen MD acetaminophen ER (Tylenol Arthritis Pain) 650 mg PO Q12H 30 days amlodipine 10 mg PO DAILY 90 days aspirin (Ecotrin Low Strength) 81 mg PO DAILY atorvastatin 40 mg PO DAILY baclofen 10 mg PO BEDTIME 20 days lidocaine 5% leave on most painful area for up to 12 hrs topical lisinopril 40 mg PO DAILY 90 days nicotine 1 patch transdermal DAILY 14 days nicotine 1 patch transdermal DAILY 14 days oxycodone 5 mg PO Q8H PRN 7 days semaglutide (weight loss) (Wegovy) 0.25 mg (0.5 mL) subcut QWEEK 4 weeks PFSH Medical History Erectile dysfunction Obesity Lumbar spondylosis HTN (hypertension) Surgical History S/P appendectomy History of colonoscopy History of carpal tunnel surgery Family History Mother Lung cancer CAD (coronary artery disease) Father Lung cancer CAD (coronary artery disease) Brother CAD (coronary artery disease) Sister CAD (coronary artery disease) Social History Housing: House Alcohol intake: current Alcohol intake frequency: 0-2 drinks per day Alcohol type: beer Patient Tobacco Use Status: Current someday Tobacco user Tobacco use type: Cigarette Cigarettes Per Day: 10 Years Smoked: 43 , prior 42 yrs x 1 ppd e-Cigarette/Vaping Use: Never Used Second Hand Smoke Exposure: Yes service: No Current occupational status: unemployed 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 Current occupational exposures/hazards: No Cognitive needs: No Hearing needs: No Vision needs: No Physical Exam Const Other: Well-nourished well-developed very friendly male awake alert and oriented x3 in no acute distress Extrem Other: Bilateral upper extremity examination shows good capillary refill, no skin lesions noted, normal sensation light touch Right shoulder examination shows slightly decreased range of motion when compared to his left shoulder, 4/5 strength with supraspinatus testing, positive impingement signs, no instability Office Procedures Joint Injection/Drain Joint Injection/Drain Primary Site: right shoulder Prep: site was prepped using aseptic technique Injected: 40 mg of, DepoMedrol and 1% plain lidocaine Procedure: The patient tolerated the procedure well Coding 48969 - Large joint Procedure code (CPT) selection complete Results Reviewed Results Reviewed: X-rays of the patient's right shoulder taken today show severe acromioclavicular joint narrowing, a type 2 acromion, no acute bony abnormalities Assessment & Plan Assessment & Plan (1) Right shoulder pain: Code(s): M25.511 - Pain in right shoulder Category: Medical Plan Mr. Esquivel presents with bilateral shoulder pains, right greater than left, due to impingement syndrome and most likely chronic rotator cuff tearing. I had a lengthy discussion with the patient regarding the treatment options. Wishes to hold off on surgery for as long as possible. I agree with this plan. The risks and benefits of a right shoulder cortisone injection were discussed at length with the patient. The patient wished to proceed. He tolerated the injection well. He will continue with his home stretching program to prevent stiffness. The do's and don'ts of lifting were discussed at length with the patient. Will contact me prior to his follow-up appointment in 3 months should any questions or concerns arise. Feel free to call me at any time should questions regarding his orthopedic management arise. I spent 22 minutes in reviewing the patient's records and imaging studies, seeing the patient and documenting in the medical record. Orders: Orders XR shoulder RT min 2V Today M25.511 - Pain in right shoulder AMB Joint Injection/Aspiration Today M25.511 - Pain in right shoulder Coding Level of Care Code New Pt Level 3 (57489) Diagnoses Right shoulder pain M25.511 CPT Codes Coding - 96117 Large joint: 23410 - Large joint ([id number])
== END 2024-03-15 14:29 | disposition home or self-care (01) ==
PROVIDERS: PCP Physician Assistant; Visit Provider Orthopaedic Surgery
DX: M25.511 Pain in right shoulder (principal)
CPT/HCPCS: 20610; 99203

== ENCOUNTER 2024-03-15 14:28 | Outpatient (REF) | payer OTHER, SELFPAY ==
--- NOTE | ~2024-03-15 | XR_ITS ---
EXAMINATION: XR HIP, RIGHT WITH PELVIS XR LUMBAR SPINE CLINICAL INDICATION: Pain; the patient states right-sided chronic sciatic pain. Sacrococcygeal disorders not otherwise classified COMPARISON: MRI lumbar spine September 21, 2017. TECHNIQUE: 5 views of the lumbar spine. 2 AP views of the pelvis as well as AP and lateral views of the right hip. FINDINGS: LUMBAR SPINE: Dextroscoliosis of the lumbar spine. Redemonstration of anterior wedging of T11, T12 and L1 vertebral bodies with endplate irregularities and Schmorl's nodes better characterized on MRI. Multilevel lumbar spondylosis with multilevel loss of disc space height most notable at L4-L5. Grade 1 anterolisthesis of L4 on L5 with possible spondylolysis. Facet arthritis in the mid to lower lumbar spine. PELVIS/RIGHT HIP: Rounded pelvic calcifications are likely vascular. Mild superior joint space narrowing and acetabular hypertrophic change on AP views of the left hip. Moderate narrowing with subchondral sclerosis and hypertrophic change along the superolateral aspect of the right hip joint. XR/XR lumbar spine 4V min IMPRESSION: 1. Redemonstration of anterior wedging of T11, T12 and L1 vertebral bodies with endplate irregularities and Schmorl's nodes better characterized on MRI. 2. Multilevel lumbar spondylosis most notable at L4-L5. Grade 1 anterolisthesis of L4 on L5 with possible spondylolysis. 3. Facet arthritis in the mid to lower lumbar spine. 4. Mild superior joint space narrowing and acetabular hypertrophic change on AP views of the left hip. 5. Moderate narrowing with subchondral sclerosis and hypertrophic change along the superolateral aspect of the right hip joint. 6. Degenerative changes in the bilateral sacroiliac joints.
--- NOTE | ~2024-03-15 | XR_ITS ---
EXAMINATION: XR HIP, RIGHT WITH PELVIS XR LUMBAR SPINE CLINICAL INDICATION: Pain; the patient states right-sided chronic sciatic pain. Sacrococcygeal disorders not otherwise classified COMPARISON: MRI lumbar spine September 21, 2017. TECHNIQUE: 5 views of the lumbar spine. 2 AP views of the pelvis as well as AP and lateral views of the right hip. FINDINGS: LUMBAR SPINE: Dextroscoliosis of the lumbar spine. Redemonstration of anterior wedging of T11, T12 and L1 vertebral bodies with endplate irregularities and Schmorl's nodes better characterized on MRI. Multilevel lumbar spondylosis with multilevel loss of disc space height most notable at L4-L5. Grade 1 anterolisthesis of L4 on L5 with possible spondylolysis. Facet arthritis in the mid to lower lumbar spine. PELVIS/RIGHT HIP: Rounded pelvic calcifications are likely vascular. Mild superior joint space narrowing and acetabular hypertrophic change on AP views of the left hip. Moderate narrowing with subchondral sclerosis and hypertrophic change along the superolateral aspect of the right hip joint. XR/XR hip RT w PEL1V IMPRESSION: 1. Redemonstration of anterior wedging of T11, T12 and L1 vertebral bodies with endplate irregularities and Schmorl's nodes better characterized on MRI. 2. Multilevel lumbar spondylosis most notable at L4-L5. Grade 1 anterolisthesis of L4 on L5 with possible spondylolysis. 3. Facet arthritis in the mid to lower lumbar spine. 4. Mild superior joint space narrowing and acetabular hypertrophic change on AP views of the left hip. 5. Moderate narrowing with subchondral sclerosis and hypertrophic change along the superolateral aspect of the right hip joint. 6. Degenerative changes in the bilateral sacroiliac joints.
--- NOTE | ~2024-03-15 | XR_ITS ---
EXAMINATION: XR SHOULDER, RIGHT CLINICAL INFORMATION: Pain in right shoulder COMPARISON: None available. TECHNIQUE: AP neutral, scapular Y views of the right shoulder. FINDINGS: The bones are intact. No fracture or dislocation. No abnormal soft tissue calcifications. There is no significant narrowing of the glenohumeral joint. Large osteophyte extends off the distal clavicle at the acromioclavicular joint possibly causing impingement. No abnormal soft tissue calcifications. XR/XR shoulder RT min 2V IMPRESSION: Large osteophyte extends off the distal clavicle at the acromioclavicular joint possibly causing impingement.
== END 2024-03-15 14:29 | disposition home or self-care (01) ==
LOC: HO.XRAY 14:28
PROVIDERS: PCP Physician Assistant; Visit Provider Nurse Practitioner Family
DX: M25.511 Pain in right shoulder (principal); M53.3 Sacrococcygeal disorders, not elsewhere classified; M25.551 Pain in right hip; M51.36 Other intervertebral disc degeneration, lumbar region; M47.816 Spondylosis without myelopathy or radiculopathy, lumbar region
CPT/HCPCS: 20610; 72110; 73030; 73502; 99202; J1010

== ENCOUNTER → 2024-03-16 06:33 | Outpatient (BNV) | payer OTHER, SELFPAY | PROVIDERS: PCP Physician Assistant; Visit Provider Internal Medicine | DX: I47.10 Supraventricular tachycardia, unspecified (principal) | CPT/HCPCS: 93244 ==

== ENCOUNTER → 2024-03-16 07:17 | Outpatient (REF) | payer OTHER, SELFPAY ==
--- NOTE | 2024-03-16 06:33 | HM_ITS ---
* Total monitoring time 3 days. * Underlying rhythm is sinus with an average rate of 85/Min. * Occasional supraventricular ectopy with a burden of 1.4%. Short runs noted. Longest 38 beats. Fastest 142/Min. * Rare ventricular ectopy. * No significant pauses or high-grade AV blocks. * No patient markers. Diary not received. MTDD
== END ==
LOC: HO.CARD 07:17
PROVIDERS: PCP Physician Assistant; Visit Provider Nurse Practitioner Family
DX: R94.39 Abnormal result of other cardiovascular function study (principal)
CPT/HCPCS: 93242

== ENCOUNTER 2024-05-24 15:16 | Outpatient (AMB) | payer OTHER, SELFPAY ==
--- NOTE | 2024-05-24 15:39 | A.OFFVIS_ITS ---
Vital Signs 05/24/24 15:40 Height 5 ft 11 in Weight 304 lb 3.806 oz BMI 42.4 BP 124/80 Blood Pressure Location Lt brachial Position Sitting Pulse 84 Pulse Source Pulse Oximeter Intake Visit Reasons: 3m follow up Allergies No Known Allergies Allergy (Verified 03/15/24 13:45) Medication List - Last Reconciled 05/24/24 by Radha Rider NP-C acetaminophen ER (Tylenol Arthritis Pain) 650 mg PO Q12H 30 days amlodipine 10 mg PO DAILY 90 days aspirin (Ecotrin Low Strength) 81 mg PO DAILY atorvastatin 40 mg PO DAILY baclofen 10 mg PO BEDTIME 20 days lidocaine 5% leave on most painful area for up to 12 hrs topical lisinopril 40 mg PO DAILY 90 days nicotine 1 patch transdermal DAILY 14 days nicotine 1 patch transdermal DAILY 14 days oxycodone 5 mg PO Q8H PRN 7 days semaglutide (weight loss) (Wegovy) 0.25 mg (0.5 mL) subcut QWEEK 4 weeks HPI HPI 3m follow up: Details: Joe is a 54-year-old male with past medical history of morbid obesity, hypertension who recently had an echocardiogram showing severe LVH, enlarged thoracic aorta. An exercise stress test showed no ischemia. A sleep study was ordered however he declines this test. On last visit a Holter monitor was ordered as he did have frequent ectopy during his exercise stress test. Today he reports that he feels good with no concerning symptoms. He has no concerning chest discomfort at rest or with activity. No shortness of breath, PND, orthopnea or edema. No palpitations, lightheadedness, presyncope, syncope, falls. He previously told me that he had a sleep study he had in the past was not accurate. He does not believe he has sleep apnea. He says even if he was found to have sleep apnea he would not be able to wear a mask as he sleeps on his stomach. 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 He says he has been obese his entire life and this is a normal weight for him. [facility] Medical History Erectile dysfunction Obesity Lumbar spondylosis HTN (hypertension) Surgical History S/P appendectomy History of colonoscopy History of carpal tunnel surgery Family History Mother Lung cancer CAD (coronary artery disease) Father Lung cancer CAD (coronary artery disease) Brother CAD (coronary artery disease) Sister CAD (coronary artery disease) Social History Housing: House Alcohol intake: current Alcohol intake frequency: 0-2 drinks per day Alcohol type: beer Patient Tobacco Use Status: Current someday Tobacco user Tobacco use type: Cigarette Cigarettes Per Day: 10 Years Smoked: 43 , prior 42 yrs x 1 ppd e-Cigarette/Vaping Use: Never Used Second Hand Smoke Exposure: Yes service: No Current occupational status: unemployed 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 Current occupational exposures/hazards: No Cognitive needs: No Hearing needs: No Vision needs: No Review of Systems Const All systems reviewed & are unremarkable except as noted in HPI and below Denies weakness ENT Denies dizziness Card Denies chest pain, Denies chest pain with activity, Denies syncope, Denies rapid heart rate, Denies pedal edema, Denies edema, Denies leg edema, Denies lightheadedness, Denies palpitations, Denies dyspnea, Denies dyspnea on exertion and Denies orthopnea Resp Denies cough, Denies dyspnea and Denies dyspnea on exertion GI Denies hematochezia and Denies change in stool character Musc Denies abnormal gait, Denies muscle cramps, Denies muscle weakness, Denies numbness, Denies radiating pain into limb and Denies tingling Neuro Denies abnormal gait, Denies dizziness, Denies syncope, Denies numbness, Denies tingling and Denies weakness Endo Denies palpitations Physical Exam Vital Signs: Last Vital Signs Pulse 84 05/24/24 15:40 BP 124/80 05/24/24 15:40 BMI result Body Mass Index 42.4 Const General: cooperative, healthy appearing, comfortable and no acute distress Orientation/consciousness: patient oriented x3 Neck Neck: Yes normal visual inspection and Yes no JVD Resp Effort & Inspection: normal respiratory effort Auscultation: clear to auscultation bilaterally, no rales, no rhonchi and no wheezes Cardio Jugular venous distension: no JVD Rate: regular rate Rhythm: regular rhythm Heart sounds: S1 normal heart sound present, S2 normal heart sound present, no murmurs and no rubs Neuro General: patient oriented x3 Extrem General: Yes normal to inspection, No no pedal edema and No calf tenderness Psych Appearance: grossly normal Mental Status: mental status grossly normal Speech and movement: Normal speech and movement present Assessment & Plan Assessment & Plan (1) Hypertensive heart disease: Code(s): I11.9 - Hypertensive heart disease without heart failure Category: Medical Qualifiers: Heart failure presence: without heart failure Qualified Code(s): I11.9 - Hypertensive heart disease without heart failure Plan: History of hypertension. Recent echocardiogram showing EF 60-65%, severe LVH, no valve abnormalities. He has been on amlodipine and lisinopril for blood pressure control. He underwent a exercise stress test on 01/13/2024 with exercise 6.5 minutes, frequent atrial and ventricular ectopy, moderate shortness of breath, no ST changes. Sleep study was ordered and he declines. Prior sleep study in 2021 showed severe obstructive sleep apnea. He states that the test was a false positive. He does not believe he has sleep apnea and will not wear a mask if he is found to have it. His blood pressure is normal range at this time, 124/80. He continues on amlodipine and lisinopril. No med change made today. Recommend low-salt diet and weight loss if able. Cardiology follow-up in office 6 months, sooner if needed. (2) HTN (hypertension): Code(s): I10 - Essential (primary) hypertension Category: Medical Qualifiers: Hypertension type: essential hypertension Qualified Code(s): I10 - Essential (primary) hypertension Plan: As above (3) Morbid obesity: Code(s): E66.01 - Morbid (severe) obesity due to excess calories Category: Medical Plan: Benefit of weight loss and increasing physical activity reviewed. He says this is normal weight for him. (4) JONATHAN (obstructive sleep apnea): Code(s): G47.33 - Obstructive sleep apnea (adult) (pediatric) Category: Medical Plan: He denies this diagnosis. He has not interested in completing a repeat sleep study (5) Ascending aorta dilatation: Code(s): I77.810 - Thoracic aortic ectasia Category: Medical Plan: Last echo shows sinus of Valsalva 4.3 cm, ascending aorta 4.2 cm. Will continue to follow with periodic echoes (6) Abnormal stress ECG: Code(s): R94.39 - Abnormal result of other cardiovascular function study Category: Medical Plan: Atrial and ventricular ectopy noted during exercise stress test. He wore a Holter monitor on 03/16/2024 showing sinus rhythm with average heart rate 85, supraventricular ectopy 1.4% of time, short bursts, longest 38 beats, rare ventricular ectopy. Test results has been reviewed with him. He denies ever feeling any heart palpitations. He is not interested in additional medications at this time. Will hold off on adding beta mora. Plan Time spent on chart review, documentation, interview assessment Coding Level of Care Code Est Pt Level 3 (04578) Diagnoses Hypertensive heart disease without heart failure I11.9 Heart failure presence: without heart failure Essential hypertension I10 Hypertension type: essential hypertension Morbid obesity E66.01 JONATHAN (obstructive sleep apnea) G47.33 Ascending aorta dilatation I77.810 Abnormal stress ECG R94.39 Time Spent (min) 24
[2024-05-24 15:40] VITALS: BP 124/80; PULSE 84; BMI 42.4
== END 2024-05-24 16:06 | disposition home or self-care (01) ==
PROVIDERS: PCP Physician Assistant; Visit Provider Nurse Practitioner Family
DX: I11.9 Hypertensive heart disease without heart failure (principal); I10 Essential (primary) hypertension; E66.01 Morbid (severe) obesity due to excess calories; G47.33 Obstructive sleep apnea (adult) (pediatric); I77.810 Thoracic aortic ectasia; R94.39 Abnormal result of other cardiovascular function study
CPT/HCPCS: 99213

== ENCOUNTER → 2024-05-24 15:16 | Outpatient (BNVA) | payer OTHER, SELFPAY | PROVIDERS: PCP Physician Assistant; Visit Provider Nurse Practitioner Family | DX: I11.9 Hypertensive heart disease without heart failure (principal); I10 Essential (primary) hypertension; I77.810 Thoracic aortic ectasia; R94.39 Abnormal result of other cardiovascular function study; G47.33 Obstructive sleep apnea (adult) (pediatric); E66.01 Morbid (severe) obesity due to excess calories; Z68.41 Body mass index [BMI] 40.0-44.9, adult | CPT/HCPCS: 99212 ==

== ENCOUNTER 2024-05-25 08:44 | Outpatient (AMB) | payer OTHER, SELFPAY ==
--- NOTE | 2024-05-25 09:07 | A.OFFPC_ITS ---
Vital Signs 05/25/24 09:08 Height 5 ft 11 in Weight 302 lb 4 oz BMI 42.2 BP 112/76 Blood Pressure Location Lt brachial Position Sitting Pulse 73 Pulse Source Pulse Oximeter Pulse Oximetry (%) 92 Oxygen Delivery Method Room Air Intake Visit Reasons: 3 Month F/U Intake Note: Patient is here to follow up on JONATHAN, HTN, LDDD. 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 per policy Accompanied by: Self / Same As Patient Allergies No Known Allergies Allergy (Verified 05/25/24 09:15) Medication List - Last Reconciled 05/25/24 by Juwan Gupta PA-C acetaminophen ER (Tylenol Arthritis Pain) 650 mg PO Q12H 30 days amlodipine 10 mg PO DAILY 90 days aspirin (Ecotrin Low Strength) 81 mg PO DAILY atorvastatin 40 mg PO DAILY baclofen 10 mg PO BEDTIME 20 days lidocaine 5% leave on most painful area for up to 12 hrs topical lisinopril 40 mg PO DAILY 90 days nicotine 1 patch transdermal DAILY 14 days nicotine 1 patch transdermal DAILY 14 days oxycodone 5 mg PO Q8H PRN 7 days semaglutide (weight loss) (Wegovy) 0.25 mg (0.5 mL) subcut QWEEK 4 weeks Tobacco use date assessed: 05/25/24 Dental Screening Dental Screen Date: 02/22/24 HPI 3 Month F/U HPI Details Joe is a 54-year-old male here today a follow-up visit. Patient's past medical history significant for hypertension, hypertensive heart disease, pulmonary nodule, lower back pain with radiculopathy left side, obesity. Has followed up with Orthopedics and received a cortisone injection in his right shoulder which significantly reduced his pain. ? Obstructive sleep apnea--interval history--> was not able to complete a full sleep study. Does have an elevated [place] Sleepiness Scale score. . Obesity: He has unfortunately gained weight since last office visit.. He was in a weight management program though has not been able to lose any weight. He does admit to dietary indiscretion, drinking more alcohol etc.. ... Tobacco dependency: He does understand he needs to quit smoking. He reports he has cut down his smoking though does understand he really does need to quit smoking. .. Hyperlipidemia: Has followed with Cardiology in his atorvastatin was increased with goal LDL to be optimally below 70 due to family history and cardiac risks. ? .. ? HTN: Blood pressure today in office acceptable. Patient continues on amlodipine and lisinopril 40 mg.? He does check his blood pressure seldomly at home and reports 120s to 130 systolic.? Otherwise denies any chest discomfort, headaches, vision issues. .. Hypertensive heart disease: Now followed by Cardiology. Echocardiogram showing LVH consistent with hypertensive heart disease. .. Thrombocytopenia: Most recent platelet count 147 and is fairly stable. He otherwise denies any abnormal bleeding a bruising. Unclear etiology to patient's thrombocytopenia the likely due to his smoking and alcohol intake. Did have spleno megaly on abdominal imaging. ? .. ? Lumbar spine pain: Patient uses low-dose oxycodone 5mg on a very p.r.n. basis, 1 script 21 tabs will last 6 months. He reports he continues to have some worsening lower lumbar spine pain that gets in the way of his daily activities. Has seen pain management and has gotten x- rays of his lumbar spine and hips. Does have moderate arthritis in his right hip and signs arthritis in his lumbar spine. ?? ? PFSH Medical History Erectile dysfunction Obesity Lumbar spondylosis HTN (hypertension) Surgical History S/P appendectomy History of colonoscopy History of carpal tunnel surgery Family History Mother Lung cancer CAD (coronary artery disease) Father Lung cancer CAD (coronary artery disease) Brother CAD (coronary artery disease) Sister CAD (coronary artery disease) Social History Housing: House Alcohol intake: current Alcohol intake frequency: 0-2 drinks per day Alcohol type: beer Patient Tobacco Use Status: Current everyday Tobacco user Tobacco use type: Cigarette Cigarette Packs Per Day: 0.25 Cigarettes Per Day: 4 Years Smoked: 43 , prior 42 yrs x 1 ppd e-Cigarette/Vaping Use: Never Used Second Hand Smoke Exposure: Yes service: No Current occupational status: unemployed 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 Marcio Loomis, Georgina Alcantara, Camden Camacho and colleagues, with an educational dontrell from [employer]. Review of Systems Const Denies headache(s) Eyes Denies loss of vision ENT Denies vertigo, Denies dizziness, Denies headache(s) and Denies sore throat Card Denies chest pain, Denies leg edema and Denies lightheadedness Resp Denies cough, Denies hemoptysis and Denies wheezing GI Denies abdominal pain, Denies melena, Denies constipation, Denies diarrhea and Denies vomiting Denies dysuria, Denies urinary frequency and Denies urinary urgency Musc Denies arthralgias, Denies joint swelling, Denies numbness and Denies tingling Neuro Denies Abnormal speech present, Denies behavioral changes, Denies vertigo, Denies dizziness, Denies headache(s), Denies loss of vision, Denies memory loss, Denies numbness and Denies tingling Psych Denies anxiety, Denies behavioral changes, Denies depression, Denies memory loss and Denies panic attacks Nimesh/Lymph Denies easy bleeding and Denies easy bruising Aller/Immun Denies wheezing Physical exam (Primary Care) Vital Signs: Last Vital Signs Pulse 73 05/25/24 09:08 BP 112/76 05/25/24 09:08 Pulse Ox 92 05/25/24 09:08 Oxygen Delivery Method Room Air 05/25/24 09:08 BMI result Body Mass Index 42.2 BMI Assessment/Plan discussion: High BMI High, discussed plan: lifestyle, weight reduction, dietary and physical activity Tobacco/Smoking Status: Tobacco use Status Tobacco use date assessed 05/25/24 05/25/24 09:13 Patient Tobacco Use Status Current everyday Tobacco 05/25/24 09:13 Tobacco use type Cigarette 05/25/24 09:13 e-Cigarette/Vaping Use Never Used 05/25/24 09:13 Are you ready to quit: No Tobacco cessation counseling provided: Yes Items discussed: Nicotine replacement Relapse Prevention: discussed the importance of a supportive environment, dis cussed negative mood or depression after quitting, weight gain after smoking is common and discussed dietary, exercise and/or lifestyle changes Number of minutes spent counselin CPT code: 80587 - 4-10 Minutes Thrive Assessment: Date of Thrive Assessment Date Thrive assessed 02/22/24 05/25/24 09:13 Const General: healthy appearing, no acute distress, alert and awake Nutritional Appearance: well nourished Orientation/consciousness: oriented to person, oriented to place and oriented to time HENMT Ears: TM's normal bilaterally General nose exam: Normal nasal mucous membranes and turbinates present Eyes Conjunctivae: conjunctivae normal Sclerae: sclerae normal Pupils: Equal, round and reactive pupils present Neck Neck: Yes no lymphadenopathy and Yes no JVD Thyroid: Thyroid normal Carotids: no bruits Resp Effort & Inspection: normal respiratory effort and not tachypneic Auscultation: no crackles, no rales, no rhonchi and no wheezes Cardio Rate: regular rate Rhythm: regular rhythm Heart sounds: no murmurs and normal S1 and S2 GI Palpation (GI): Soft to palpation, nontender, no hepatomegaly and no splenomegaly Auscultation: normal bowel sounds Skin General skin exam: no rashes or lesions noted and dry skin Neuro General: oriented to person, oriented to place and oriented to time Cranial nerves: Yes Equal, round and reactive pupils present Speech: No Abnormal speech present Gait exam (Neuro): Normal gait present Motor exam (neuro): no tremor noted Extrem Right upper extremity: full ROM Left upper extremity: full ROM Right lower extremity: full ROM; no edema Left lower extremity: full ROM; no edema Psych Mental Status: mental status grossly normal Speech and movement: Normal speech and movement present Affect: normal affect Attitude: cooperative Thought process: Normal thought process present Assessment and Plan Assessment & Plan (1) HTN (hypertension): Code(s): I10 - Essential (primary) hypertension Qualifiers: Hypertension type: essential hypertension Qualified Code(s): I10 - Essential (primary) hypertension Plan: Patient's blood pressure in office today acceptable. Will continue amlodipine and lisinopril with goal blood pressure remain below 140/90 (2) Hypertensive heart disease: Code(s): I11.9 - Hypertensive heart disease without heart failure Qualifiers: Heart failure presence: without heart failure Qualified Code(s): I11.9 - Hypertensive heart disease without heart failure Plan: Now followed by [facility]. Most recent echocardiogram showing LVH consistent with hypertensive heart disease. Today's blood pressure in office acceptable. Will continue amlodipine and lisinopril. Has been started on aspirin and higher dose of statin with goal LDL to be below 70. (3) Obesity: Code(s): E66.9 - Obesity, unspecified Qualifiers: Body mass index: BMI 40.0-44.9 Obesity classification: adult class 3 (BMI >= 40) Obesity type: due to excess calories Serious obesity comorbidity presence: with serious comorbidity Qualified Code(s): E66.01 - Morbid (severe) obesity due to excess calories; Z68.41 - Body mass index [BMI] 40.0-44.9, adult; Z68.41 - Body mass index [BMI] 40.0-44.9, adult Plan: Unfortunately has gained weight since last office visit. Was in a weight management program though has not been successful for him. He is willing to try GLP 1 to help lose weight, also does multiple comorbidities due to his weight. (4) Lumbar spondylosis: Code(s): M47.816 - Spondylosis without myelopathy or radiculopathy, lumbar region Plan: Unfortunately continues to have lower lumbar spine pain that often radiates down right lower extremity. He has not interested in physical therapy at this time though would like to speak with pain management about pain reduction modality. He continues to use low-dose oxycodone on a very limited p.r.n. basis. Has gotten recent x-rays of his lumbar spine that did show spondylosis and also does have right hip moderate arthritis. Advised on use of acetaminophen rather than ibuprofen or naproxen due to cardiovascular risks he has. He does also use baclofen 10 mg as needed with decent affect on reducing his back pain. (5) Tobacco dependence: Code(s): F17.200 - Nicotine dependence, unspecified, uncomplicated Plan: He reports he has reduced his smoking, does have nicotine patches available to him though reports they do not stick to his skin. Has been doing more gum to reduce his cigarette smoking.. (6) Right shoulder tendinitis: Code(s): M77.8 - Other enthesopathies, not elsewhere classified Plan: Has followed up with orthopedic surgeon and received a cortisone injection which worked wonderfully on reducing his pain. Will continue follow-up with orthopedics Medications: Refilled baclofen 10 mg PO BEDTIME 20 tabs 1RF 20 days M47.816 - Spondylosis without myelopathy or radiculopathy, lumbar region oxycodone Partial Fill upon patient request. 5 mg PO Q8H PRN 21 tabs 0RF pain 7 days M47.816 - Spondylosis without myelopathy or radiculopathy, lumbar region amlodipine 10 mg PO DAILY 90 tabs 1RF 90 days I10 - Essential (primary) hypertension lisinopril 40 mg PO DAILY 90 tabs 1RF 90 days I10 - Essential (primary) hypertension Patient Instructions: Goal: Blood pressure to be below 140/90 Barrier: Adherence to physical activity and healthy eating habits Coding Level of Care Code Est Pt Level 4 (57688) Diagnoses Essential hypertension I10 Hypertension type: essential hypertension Hypertensive heart disease without heart failure I11.9 Heart failure presence: without heart failure Class 3 severe obesity due to excess calories with serious comorbidity and body mass index (BMI) of 40.0 to 44.9 in adult E66.01; Z68.41; Z68.41 Body mass index: BMI 40.0-44.9 Obesity classification: adult class 3 (BMI >= 40) Obesity type: due to excess calories Serious obesity comorbidity presence: with serious comorbidity Lumbar spondylosis M47.816 Tobacco dependence F17.200 Right shoulder tendinitis M77.8 Additional Codes Vital Signs *Quality* - CPT code: 39707 - 4-10 Minutes ([id number])
[2024-05-25 09:08] VITALS: BP 112/76; PULSE 73; O2SAT 92; BMI 42.2
== END 2024-05-25 09:29 | disposition home or self-care (01) ==
PROVIDERS: PCP Physician Assistant; Visit Provider Physician Assistant
DX: I10 Essential (primary) hypertension (principal); I11.9 Hypertensive heart disease without heart failure; E66.01 Morbid (severe) obesity due to excess calories; Z68.41 Body mass index [BMI] 40.0-44.9, adult; M47.816 Spondylosis without myelopathy or radiculopathy, lumbar region; F17.200 Nicotine dependence, unspecified, uncomplicated; M77.8 Other enthesopathies, not elsewhere classified
CPT/HCPCS: 99214; 99406

== ENCOUNTER 2024-06-16 14:59 | Outpatient (AMB) | payer OTHER, SELFPAY ==
--- NOTE | 2024-06-16 15:02 | A.OFFVIS_ITS ---
Intake Visit Reasons: Left shoulder pain Intake Note: Joe is a 54 year old male who presents with complaints of progressively worsening left shoulder pain. Earlier this year he did have a cortisone injection given into his right shoulder. Today he reports minimal discomfort in his right shoulder. He describes his left shoulder pain as sharp in nature. He has done physical therapy exercises which aggravated his pain. He has also tried Tylenol and anti-inflammatory medicines which gave him minimal relief. He reports mild weakness when lifting his left hand above shoulder height. Allergies No Known Allergies Allergy (Verified 06/16/24 15:02) Medication List - Last Reconciled 06/16/24 by Crescencio Chen MD acetaminophen ER (Tylenol Arthritis Pain) 650 mg PO Q12H 30 days amlodipine 10 mg PO DAILY 90 days aspirin (Ecotrin Low Strength) 81 mg PO DAILY atorvastatin 40 mg PO DAILY baclofen 10 mg PO BEDTIME 20 days lidocaine 5% leave on most painful area for up to 12 hrs topical lisinopril 40 mg PO DAILY 90 days nicotine 1 patch transdermal DAILY 14 days nicotine 1 patch transdermal DAILY 14 days oxycodone 5 mg PO Q8H PRN 7 days semaglutide (weight loss) (Wegovy) 0.25 mg (0.5 mL) subcut QWEEK 4 weeks PFSH Medical History Erectile dysfunction Obesity Lumbar spondylosis HTN (hypertension) Surgical History S/P appendectomy History of colonoscopy History of carpal tunnel surgery Family History Mother Lung cancer CAD (coronary artery disease) Father Lung cancer CAD (coronary artery disease) Brother CAD (coronary artery disease) Sister CAD (coronary artery disease) Social History Housing: House Alcohol intake: current Alcohol intake frequency: 0-2 drinks per day Alcohol type: beer Patient Tobacco Use Status: Current everyday Tobacco user Tobacco use type: Cigarette Cigarette Packs Per Day: 0.25 Cigarettes Per Day: 4 Years Smoked: 43 , prior 42 yrs x 1 ppd e-Cigarette/Vaping Use: Never Used Second Hand Smoke Exposure: Yes service: No Current occupational status: unemployed 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 Current occupational exposures/hazards: No Cognitive needs: No Hearing needs: No Vision needs: No Physical Exam Const Other: Well-nourished well-developed very friendly male awake alert and oriented x3 in no acute distress Extrem Other: Bilateral upper extremity examination shows good capillary refill, no skin lesions noted, normal sensation light touch Left shoulder examination shows full range of motion when compared to his right shoulder, 4/5 strength with supraspinatus testing, positive impingement signs, no instability Office Procedures Joint Injection/Aspiration Joint Injection/Aspiration Primary Site: left shoulder Prep: site was prepped using aseptic technique Injected: 40 mg of, DepoMedrol and 1% plain lidocaine Procedure: The patient tolerated the procedure well Coding 23273 - Large joint Procedure code (CPT) selection complete Assessment & Plan Assessment & Plan (1) Impingement syndrome of left shoulder: Code(s): M75.42 - Impingement syndrome of left shoulder Category: Medical (2) Left shoulder pain: Code(s): M25.512 - Pain in left shoulder Plan Mr. Esquivel presents with left shoulder pain due to impingement syndrome and possible chronic rotator cuff tearing. I had a lengthy discussion with the patient regarding the treatment options. He wishes to hold off on surgery if at all possible. I agree with this plan. The risks and benefits of a left shoulder cortisone injection were discussed at length with the patient. The patient wished to proceed. He tolerated the injection well. He will continue with his home stretching program to prevent stiffness. He will follow up with me on an as-needed basis should his symptoms not plateau at an unacceptable level over the next few months. Feel free to call me at any time should questions regarding his orthopedic management arise. I spent 22 minutes in reviewing the patient's records and imaging studies, seeing the patient and documenting in the medical record. Orders: Orders AMB Joint Injection/Aspiration 06/16/24 M75.42 - Impingement syndrome of left shoulder Coding Level of Care Code Est Pt Level 3 (93098) Complex EM visit Add On G2211 Diagnoses Impingement syndrome of left shoulder M75.42 Left shoulder pain M25.512 CPT Codes Coding - 51482 Large joint: 69244 - Large joint ([id number])
== END 2024-06-16 15:19 | disposition home or self-care (01) ==
PROVIDERS: PCP Physician Assistant; Visit Provider Orthopaedic Surgery
DX: M75.42 Impingement syndrome of left shoulder (principal)
CPT/HCPCS: 20610; 99213

== ENCOUNTER → 2024-06-16 14:59 | Outpatient (BNVA) | payer OTHER, SELFPAY | PROVIDERS: PCP Physician Assistant; Visit Provider Orthopaedic Surgery | DX: M75.42 Impingement syndrome of left shoulder (principal); M25.512 Pain in left shoulder | CPT/HCPCS: 20610; 99212; J1010; J2003 ==

== ENCOUNTER 2024-07-21 13:21 | Outpatient (AMB) | payer OTHER, SELFPAY ==
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
[2024-07-21 13:27] VITALS: BP 213/115; PULSE 88; O2SAT 98; BMI 41.8
[2024-07-21 13:28] VITALS: BP 172/98; PULSE 84; O2SAT 98
== END 2024-07-21 13:52 | disposition home or self-care (01) ==
LOC: HO.PMC 13:22
PROVIDERS: PCP Physician Assistant; Visit Provider Nurse Practitioner Family
DX: M25.50 Pain in unspecified joint (principal); M47.816 Spondylosis without myelopathy or radiculopathy, lumbar region; M51.369 Other intervertebral disc degeneration, lumbar region without mention of lumbar back pain or lower extremity pain; M53.3 Sacrococcygeal disorders, not elsewhere classified; M25.551 Pain in right hip
CPT/HCPCS: 99214; G2211

== ENCOUNTER → 2024-07-21 13:21 | Outpatient (BNVA) | payer OTHER, SELFPAY | PROVIDERS: PCP Physician Assistant; Visit Provider Nurse Practitioner Family | DX: M25.50 Pain in unspecified joint (principal); M47.816 Spondylosis without myelopathy or radiculopathy, lumbar region; M51.369 Other intervertebral disc degeneration, lumbar region without mention of lumbar back pain or lower extremity pain; M53.3 Sacrococcygeal disorders, not elsewhere classified; M25.551 Pain in right hip | CPT/HCPCS: 99212 ==

== ENCOUNTER 2024-08-22 06:03 | Outpatient (REF) | payer OTHER, SELFPAY ==
[2024-08-22 07:46] LABS: Cholesterol 164 mg/dL (<200); HDL Cholesterol 42 mg/dL (>40); LDL Cholesterol Calculated 105 mg/dL (<100); Triglycerides 89 mg/dL (<150)
[2024-08-22 08:26] LABS: Ferritin 138 ng/mL (20-250)
[2024-08-23 13:29] LABS: Transferrin 237 mg/dL (188-341)
== END 2024-08-22 06:04 | disposition home or self-care (01) ==
LOC: HO.LAB 06:03
PROVIDERS: PCP Physician Assistant; Visit Provider Internal Medicine Cardiovascular Disease
DX: E78.5 Hyperlipidemia, unspecified (principal); I10 Essential (primary) hypertension; I25.10 Atherosclerotic heart disease of native coronary artery without angina pectoris
CPT/HCPCS: 36415; 80061; 82728; 84466; 86141

== ENCOUNTER 2024-08-24 15:15 | Outpatient (AMB) | payer OTHER, SELFPAY ==
[2024-08-24 15:26] VITALS: BP 140/98; PULSE 86; O2SAT 96; BMI 42.0
--- NOTE | 2024-08-24 15:26 | MHC.PC.OV ---
Vital Signs 08/24/24 15:26 Height 5 ft 11 in Weight 301 lb BMI 42.0 BP 140/98 H Blood Pressure Location Lt brachial Position Sitting Pulse 86 Pulse Source Pulse Oximeter Pulse Oximetry (%) 96 Oxygen Delivery Method Room Air Intake Visit Reasons: f/u labs , HTN Still Photographer Required: No Accompanied by: Self / Same As Patient Allergies No Known Allergies Allergy (Verified 08/24/24 15:44) Medication List - Last Reconciled 08/24/24 by Juwan Gupta PA-C acetaminophen ER (Tylenol Arthritis Pain) 650 mg PO Q12H 30 days amlodipine 10 mg PO DAILY 90 days aspirin (Ecotrin Low Strength) 81 mg PO DAILY atorvastatin 40 mg PO DAILY baclofen 10 mg PO BEDTIME 20 days lidocaine 5% leave on most painful area for up to 12 hrs topical lisinopril 40 mg PO DAILY 90 days nicotine 1 patch transdermal DAILY 14 days nicotine 1 patch transdermal DAILY 14 days oxycodone 5 mg PO Q8H PRN 7 days semaglutide (weight loss) (Wegovy) 0.25 mg (0.5 mL) subcut QWEEK 4 weeks semaglutide (weight loss) (Wegovy) 0.5 mg (0.5 mL) subcut QWEEK 4 weeks semaglutide (weight loss) (Wegovy) 1 mg (0.5 mL) subcut QWEEK 4 weeks Tobacco use date assessed: 05/25/24 Dental Screening Dental Screen Date: 02/22/24 HPI f/u labs , HTN HPI Details Jeo is a 54-year-old male here today a follow-up visit. Patient's past medical history significant for hypertension, hypertensive heart disease, pulmonary nodule, lower back pain with radiculopathy left side, obesity. Has followed up with Orthopedics and received a cortisone injection in his right shoulder which significantly reduced his pain. Unfortunately now his left shoulder has been in more pain and some significant decreased range of motion. ? . Obesity: He continues on Wegovy though has not lost much weight. He has noted that he is appetite has been curbed a bit. He has not been successful in the weight management program. ... Tobacco dependency: He does understand he needs to quit smoking. He reports he has cut down his smoking though does understand he really does need to quit smoking. .. Hyperlipidemia: He reports he has not been taking statin therapy for quite some time now. He has changed his diet and his total cholesterol and LDL has much improved. ? .. ? HTN: Blood pressure today in office acceptable. Patient continues on amlodipine and lisinopril 40 mg.? He does check his blood pressure seldomly at home and reports 120s to 130 systolic.? Otherwise denies any chest discomfort, headaches, vision issues. .. Hypertensive heart disease: Now followed by Cardiology. Echocardiogram showing LVH consistent with hypertensive heart disease. .. Thrombocytopenia: Most recent platelet count 147 and is fairly stable. He otherwise denies any abnormal bleeding a bruising. Unclear etiology to patient's thrombocytopenia the likely due to his smoking and alcohol intake. Did have spleno megaly on abdominal imaging. ? .. ? Lumbar spine pain: Patient uses low-dose oxycodone 5mg on a very p.r.n. basis, 1 script 21 tabs will last 6 months. He reports he continues to have some worsening lower lumbar spine pain that gets in the way of his daily activities. Has seen pain management and has gotten x-rays of his lumbar spine and hips. Does have moderate arthritis in his right hip and signs arthritis in his lumbar spine. [facility] Medical History (Updated 08/25/24 @ 08:30 by Juwan Gupta PA-C) Abnormal stress ECG Erectile dysfunction Obesity Lumbar spondylosis HTN (hypertension) Surgical History S/P appendectomy History of colonoscopy History of carpal tunnel surgery Family History Mother Lung cancer CAD (coronary artery disease) Father Lung cancer CAD (coronary artery disease) Brother CAD (coronary artery disease) Sister CAD (coronary artery disease) Social History Housing: House Alcohol intake: current Alcohol intake frequency: 0-2 drinks per day Alcohol type: beer Patient Tobacco Use Status: Current everyday Tobacco user Tobacco use type: Cigarette Cigarette Packs Per Day: 0.25 Cigarettes Per Day: 4 Years Smoked: 43 , prior 42 yrs x 1 ppd e-Cigarette/Vaping Use: Never Used Second Hand Smoke Exposure: Yes service: No Current occupational status: unemployed 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 Marcio Loomis, Georgina Alcantara, Camden Camacho and colleagues, with an educational dontrell from [employer]. Review of Systems Const Denies headache(s) Eyes Denies loss of vision ENT Denies vertigo, Denies dizziness, Denies headache(s) and Denies sore throat Card Denies chest pain, Denies leg edema and Denies lightheadedness Resp Denies cough, Denies hemoptysis and Denies wheezing GI Denies abdominal pain, Denies melena, Denies constipation, Denies diarrhea and Denies vomiting Denies dysuria, Denies urinary frequency and Denies urinary urgency Musc Denies arthralgias, Denies joint swelling, Denies numbness and Denies tingling Neuro Denies Abnormal speech present, Denies behavioral changes, Denies vertigo, Denies dizziness, Denies headache(s), Denies loss of vision, Denies memory loss, Denies numbness and Denies tingling Psych Denies anxiety, Denies behavioral changes, Denies depression, Denies memory loss and Denies panic attacks Nimesh/Lymph Denies easy bleeding and Denies easy bruising Aller/Immun Denies wheezing Physical exam (Primary Care) Vital Signs: Last Vital Signs Pulse 86 08/24/24 15:26 BP 140/98 H 08/24/24 15:26 Pulse Ox 96 08/24/24 15:26 Oxygen Delivery Method Room Air 08/24/24 15:26 BMI result Body Mass Index 42.0 BMI Assessment/Plan discussion: High BMI High, discussed plan: lifestyle, weight reduction, dietary and physical activity Tobacco/Smoking Status: Tobacco use Status Tobacco use date assessed 05/25/24 08/24/24 15:27 Patient Tobacco Use Status Current everyday Tobacco 08/24/24 15:27 Tobacco use type Cigarette 08/24/24 15:27 e-Cigarette/Vaping Use Never Used 08/24/24 15:27 Are you ready to quit: No Tobacco cessation counseling provided: Yes Items discussed: Nicotine replacement Relapse Prevention: discussed the importance of a supportive environment, discussed negative mood or depression after quitting, weight gain after smoking is common and discussed dietary, exercise and/or lifestyle changes Number of minutes spent counselin CPT code: 56726 - 4-10 Minutes Thrive Assessment: Date of Thrive Assessment Date Thrive assessed 02/22/24 08/24/24 15:27 Const General: healthy appearing, no acute distress, alert and awake Nutritional Appearance: well nourished Orientation/consciousness: oriented to person, oriented to place and oriented to time HENMT Ears: TM's normal bilaterally General nose exam: Normal nasal mucous membranes and turbinates present Eyes Conjunctivae: conjunctivae normal Sclerae: sclerae normal Pupils: Equal, round and reactive pupils present Neck Neck: Yes no lymphadenopathy and Yes no JVD Thyroid: Thyroid normal Carotids: no bruits Resp Effort & Inspection: normal respiratory effort and not tachypneic Auscultation: no crackles, no rales, no rhonchi and no wheezes Cardio Rate: regular rate Rhythm: regular rhythm Heart sounds: no murmurs and normal S1 and S2 GI Palpation (GI): Soft to palpation, nontender, no hepatomegaly and no splenomegaly Auscultation: normal bowel sounds Skin General skin exam: no rashes or lesions noted and dry skin Neuro General: oriented to person, oriented to place and oriented to time Cranial nerves: Yes Equal, round and reactive pupils present Speech: No Abnormal speech present Gait exam (Neuro): Normal gait present Motor exam (neuro): no tremor noted Extrem Right upper extremity: full ROM Left upper extremity: full ROM Right lower extremity: full ROM; no edema Left lower extremity: full ROM; no edema Psych Mental Status: mental status grossly normal Speech and movement: Normal speech and movement present Affect: normal affect Attitude: cooperative Thought process: Normal thought process present Office Procedures Flu Questionnaire Does the patient have a severe egg allergy?: No Immunizations Fluarix Triv [id number] (PF) 45 mcg (15 mcg x 3)/0.5 mL IM syringe Performing Provider: Juwan Gupta PA-C [facility] Documented (not given) by: CHERIE Yoon on 08/24/24 15:28 Reason Not Given: Patient Refused Coding Level of Care Code Est Pt Level 4 (51406) Diagnoses Tobacco dependence F17.200 Essential hypertension I10 Hypertension type: essential hypertension Lumbar spondylosis M47.816 Class 3 obesity E66.813 Impingement syndrome of left shoulder M75.42 Mixed hyperlipidemia E78.2 Hyperlipidemia type: mixed hyperlipidemia Additional Codes Vital Signs *Quality* - CPT code: 82739 - 4-10 Minutes ([id number]) Assessment & Plan Assessment & Plan (1) Tobacco dependence: Code(s): F17.200 - Nicotine dependence, unspecified, uncomplicated Category: Medical Plan: Patient does understand he needs to quit smoking. Does have nicotine replacement available to him though has found it very difficult to quit smoking even with nicotine replacement. (2) HTN (hypertension): Code(s): I10 - Essential (primary) hypertension Category: Medical Qualifiers: Hypertension type: essential hypertension Qualified Code(s): I10 - Essential (primary) hypertension Plan: Patient's blood pressure acceptable today in office. Will continue his current dose of lisinopril with goal blood pressure to remain below 140/90 (3) Lumbar spondylosis: Code(s): M47.816 - Spondylosis without myelopathy or radiculopathy, lumbar region Category: Medical Plan: Continues to follow [facility] pain management. Anticipates an injection in his back to help him with his lower back pain. He has also hopeful on losing weight to help his lower back pain. (4) Class 3 obesity: Code(s): E66.813 - Obesity, class 3 Category: Medical Plan: Joe does understand his BMI is over 40 and will continue to up titrate his GLP 1 to help him lose weight. He has found some benefit on reducing his appetite with GLP 1. Unfortunately has not lost much weight over the last couple of months. His hard for him to be physically active as he continues to have lower back pain (5) Impingement syndrome of left shoulder: Code(s): M75.42 - Impingement syndrome of left shoulder Category: Medical Plan: Patient followed by orthopedics and got injections in his shoulders which gave him significant relief in his right shoulder though unfortunately continues to have pain and decreased range of motion in his left shoulder. He will continue to manage and follow up with Orthopedics (6) HLD (hyperlipidemia): Code(s): E78.5 - Hyperlipidemia, unspecified Category: Medical Qualifiers: Hyperlipidemia type: mixed hyperlipidemia Qualified Code(s): E78.2 - Mixed hyperlipidemia Plan: He discontinuing statin therapy made dietary modifications and was able to reduce his cholesterol quite significantly. Orders: Orders Comprehensive [place]. Panel Fast 08/24/24 I10 - Essential (primary) hypertension Complete Blood Count no Diff 08/24/24 I10 - Essential (primary) hypertension Lipid Panel 08/24/24 I11.9 - Hypertensive heart disease without heart failure Influenza [id number] Immunization 08/24/24 Z23 - Encounter for immunization Microalbumin, Random (w Creat) 08/24/24 I10 - Essential (primary) hypertension Medications: New tirzepatide (weight loss) (Zepbound) for 4 weeks 2.5 mg (0.5 mL) subcut QWEEK 2 mL 0RF 4 weeks E66.01 - Morbid (severe) obesity due to excess calories Refilled lisinopril 40 mg PO DAILY 90 tabs 1RF 90 days I10 - Essential (primary) hypertension oxycodone Partial Fill upon patient request. 5 mg PO Q8H PRN 21 tabs 0RF pain 7 days M47.816 - Spondylosis without myelopathy or radiculopathy, lumbar region Discontinued semaglutide (weight loss) (Wegovy) administer weeks 1 through 4 of therapy Discontinued Reason: Doctor's Order 0.25 mg (0.5 mL) subcut QWEEK 4 weeks 2 mL 0RF E66.01 - Morbid (severe) obesity due to excess calories, Z68.41 - Body mass index [BMI] 40.0-44.9, adult semaglutide (weight loss) (Wegovy) administer weeks 5 through 8 of therapy Discontinued Reason: Doctor's Order 0.5 mg (0.5 mL) subcut QWEEK 4 weeks 2 mL 0RF E66.01 - Morbid (severe) obesity due to excess calories, Z68.41 - Body mass index [BMI] 40.0-44.9, adult
== END 2024-08-24 15:58 | disposition home or self-care (01) ==
PROVIDERS: PCP Physician Assistant; Visit Provider Physician Assistant
DX: Z23 Encounter for immunization (principal)

== ENCOUNTER → 2024-08-24 15:15 | Outpatient (BNVA) | payer OTHER, SELFPAY | PROVIDERS: PCP Physician Assistant; Visit Provider Physician Assistant | DX: I10 Essential (primary) hypertension (principal); M47.816 Spondylosis without myelopathy or radiculopathy, lumbar region; E66.811 Obesity, class 1; M75.42 Impingement syndrome of left shoulder; E78.2 Mixed hyperlipidemia; F17.200 Nicotine dependence, unspecified, uncomplicated; Z71.6 Tobacco abuse counseling | CPT/HCPCS: 90471; 99212 ==

== ENCOUNTER 2024-09-27 06:11 | Outpatient (REF) | payer OTHER, SELFPAY ==
--- NOTE | ~2024-09-27 | FL_ITS ---
EXAMINATION: FL GUIDANCE ONLY HISTORY: M53.3 - Sacrococcygeal disorders, not elsewhere classified COMPARISON: None available. TECHNIQUE: Fluoroscopy time: 0.1 minutes. Cumulative Dose: 3.96 mGy. DAP: 0.0463 uGy-m2 (microgray-meter squared). Images: 1. FINDINGS: There is a needle within the right SI joint. FL/FL guidance in treatment room IMPRESSION: Fluoroscopy during procedure. Please see procedure report for additional information. Electronically signed by: Marcio Pena MD 10/03/2024 03:21 PM [facility]
== END 2024-09-27 06:12 | disposition home or self-care (01) ==
LOC: CF 06:11
PROVIDERS: Visit Provider Anesthesiology
DX: M53.3 Sacrococcygeal disorders, not elsewhere classified (principal)
CPT/HCPCS: 27096; J2003; J2795; J3301; Q9967

== ENCOUNTER 2024-09-27 10:12 | Outpatient (AMB) | payer OTHER, SELFPAY ==
[2024-09-27 10:12] VITALS: BP 145/88; PULSE 78; O2SAT 95
--- NOTE | 2024-09-27 10:12 | MHC.OFFVIS ---
Vital Signs 09/27/24 10:12 09/27/24 10:41 BP 145/88 H 144/93 H Blood Pressure Location Lt brachial Lt radial Position Sitting Sitting Pulse 78 74 Pulse Source Pulse Oximeter Pulse Oximeter Pulse Oximetry (%) 95 96 Oxygen Delivery Method Room Air Room Air Intake Visit Reasons: Right theraputic SIJ inj/PER DR TRAVIS Allergies No Known Allergies Allergy (Verified 08/24/24 15:44) [facility] Medical History (Updated 09/27/24 @ 11:32 by Jason Travis MD) HTN (hypertension) HLD (hyperlipidemia) JONATHAN (obstructive sleep apnea) Morbid obesity Nicotine dependence, cigarettes, uncomplicated Lumbar spondylosis Erectile dysfunction Surgical History (Updated 09/26/24 @ 10:56 by Bessie Beasley PA-C) History of appendectomy History of carpal tunnel surgery History of colonoscopy Family History Mother Lung cancer CAD (coronary artery disease) Father Lung cancer CAD (coronary artery disease) Brother CAD (coronary artery disease) Sister CAD (coronary artery disease) Social History Housing: House Alcohol intake: current Alcohol intake frequency: 0-2 drinks per day Alcohol type: beer Patient Tobacco Use Status: Current everyday Tobacco user Tobacco use type: Cigarette Cigarette Packs Per Day: 0.25 Cigarettes Per Day: 4 Years Smoked: 41 , prior 42 yrs x 1 ppd e-Cigarette/Vaping Use: Never Used Second Hand Smoke Exposure: Yes service: No Current occupational status: unemployed 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 Current occupational exposures/hazards: No Cognitive needs: No Hearing needs: No Vision needs: No Physical Exam Vital Signs: Last Vital Signs Pulse 74 09/27/24 10:41 BP 144/93 H 09/27/24 10:41 Pulse Ox 96 09/27/24 10:41 Oxygen Delivery Method Room Air 09/27/24 10:41 Assessment & Plan Assessment & Plan (1) Sacroiliac joint pain: Code(s): M53.3 - Sacrococcygeal disorders, not elsewhere classified Category: Medical (2) Sacroiliitis: Code(s): M46.1 - Sacroiliitis, not elsewhere classified Category: Medical Plan Right therapeutic sacroiliac joint injection Informed consent was explained thoroughly to the patient.? All questions about benefits and risks for the procedure were answered. Patient came to the operating room and was positioned prone on the operating table with the pillow under the abdomen. The lower back and buttocks of the patient were prepped with ChloraPrep prepped and draped with sterile utility towels.? Sterilely draped C-arm was brought over the operating field and sq picture of patient's pelvis was demonstrated on the screen.? For the right joint tilting C-arm contralateral to the site of the joint the most posterior portion of the joints was superimposed with anterior silhouette of the joint.? Skin was injected in the projection of the joint slightly medial to the location of the joint with 25 gauge 1/2 inch needle using local lidocaine 2% . After that 22 gauge 3 and 1/2 inch needle was driven to the right joint in tunnel vision fashion.? When needle entered the joint capsule injection of the contrast was performed demonstrating intra-articular and minimally periarticular spread of the contrast.? After that 5 cc. of ropivacaine 0.5% mixed with Kenalog 40 mg was injected in the joint. Upon completion of the injections the needle was removed and Band-Aid was applied.? Upon completion of the injection patient was taken outside of the operating room to the recovery room where recovered uneventfully Orders: Orders FL guidance in treatment room Today M53.3 - Sacrococcygeal disorders, not elsewhere classified Coding Level of Care Code Procedure Only Diagnoses Sacroiliac joint pain M53.3 Sacroiliitis M46.1
[2024-09-27 10:41] VITALS: BP 144/93; PULSE 74; O2SAT 96
== END 2024-09-27 10:41 | disposition home or self-care (01) ==
LOC: HO.PMCPRC 10:12
PROVIDERS: PCP Physician Assistant; Visit Provider Anesthesiology
DX: M53.3 Sacrococcygeal disorders, not elsewhere classified (principal); M46.1 Sacroiliitis, not elsewhere classified
CPT/HCPCS: 27096

== ENCOUNTER → 2024-10-25 08:31 | Outpatient (BNVA) | payer OTHER, SELFPAY | PROVIDERS: PCP Physician Assistant; Visit Provider Nurse Practitioner Family | DX: M47.816 Spondylosis without myelopathy or radiculopathy, lumbar region (principal); M53.3 Sacrococcygeal disorders, not elsewhere classified; M25.551 Pain in right hip; M16.0 Bilateral primary osteoarthritis of hip | CPT/HCPCS: 99212 ==

== ENCOUNTER → 2024-10-25 09:12 | Outpatient (AMB) | payer OTHER, SELFPAY ==
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
[2024-10-25 08:50] VITALS: BP 202/116; BP 219/108; PULSE 80; O2SAT 94; BMI 41.6
[2024-10-25 09:02] VITALS: BP 150/90
== END | disposition home or self-care (01) ==
PROVIDERS: PCP Physician Assistant; Visit Provider Nurse Practitioner Family
DX: M47.816 Spondylosis without myelopathy or radiculopathy, lumbar region (principal); M53.3 Sacrococcygeal disorders, not elsewhere classified; M25.551 Pain in right hip; M16.0 Bilateral primary osteoarthritis of hip
CPT/HCPCS: 99213; G2211

== ENCOUNTER 2024-11-21 13:03 | Outpatient (AMB) | payer OTHER, SELFPAY ==
[2024-11-21 13:18] VITALS: BP 120/84; PULSE 84; BMI 40.9
--- NOTE | 2024-11-21 13:18 | A.OFFVIS_ITS ---
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 Allergies No Known Allergies Allergy (Verified 10/25/24 08:51) Medication List - Last Reconciled 11/21/24 by Blake Parks MD acetaminophen ER (Tylenol Arthritis Pain) 650 mg PO Q12H 30 days amlodipine 10 mg PO DAILY 90 days aspirin (Ecotrin Low Strength) 81 mg PO DAILY atorvastatin 40 mg PO DAILY baclofen 10 mg PO BEDTIME 20 days lidocaine 5% leave on most painful area for up to 12 hrs topical lisinopril 40 mg PO DAILY 90 days nicotine 1 patch transdermal DAILY 14 days oxycodone 5 mg PO Q8H PRN 7 days tirzepatide (weight loss) (Zepbound) 7.5 mg (0.5 mL) subcut QWEEK 4 weeks HPI Comments Details: Joe comes for follow-up. He has not had any new cardiac symptoms. Overall doing well. Denies any orthopnea, PND, leg edema. Denies any prolonged palpitation irregular heartbeat, lightheadedness, syncope. No exertional chest pain. He does not use CPAP at nighttime but uses medications. He says blood pressure is generally very well controlled on current medications. FOR[facility], [facility] Medical History HTN (hypertension) HLD (hyperlipidemia) JONATHAN (obstructive sleep apnea) Morbid obesity Nicotine dependence, cigarettes, uncomplicated Lumbar spondylosis Erectile dysfunction Surgical History History of appendectomy History of carpal tunnel surgery History of colonoscopy Family History Mother Lung cancer CAD (coronary artery disease) Father Lung cancer CAD (coronary artery disease) Brother CAD (coronary artery disease) Sister CAD (coronary artery disease) Social History Housing: House Alcohol intake: current Alcohol intake frequency: 0-2 drinks per day Alcohol type: beer Patient Tobacco Use Status: Current everyday Tobacco user Tobacco use type: Cigarette Cigarette Packs Per Day: 0.25 Cigarettes Per Day: 4 Years Smoked: 41 , prior 42 yrs x 1 ppd e-Cigarette/Vaping Use: Never Used Second Hand Smoke Exposure: Yes service: No Current occupational status: unemployed 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 Current occupational exposures/hazards: No Cognitive needs: No Hearing needs: No Vision needs: No Review of Systems Const Denies chills, Denies fatigue, Denies fever(s), Denies frequent falls, Denies weakness, Denies weight gain and Denies weight loss ENT Denies dizziness Card Denies chest pain, Denies leg edema, Denies lightheadedness, Denies palpitations, Denies dyspnea, Denies dyspnea on exertion, Denies orthopnea and Denies other (loss of consciousness) Resp Denies cough, Denies dyspnea and Denies dyspnea on exertion GI Denies hematochezia and Denies change in stool character Musc Denies abnormal gait, Denies muscle weakness, Denies numbness, Denies radiating pain into limb and Denies tingling Neuro Denies abnormal gait, Denies dizziness, Denies frequent falls, Denies numbness, Denies tingling and Denies weakness Endo Denies fatigue and Denies palpitations Physical Exam Vital Signs: Last Vital Signs Pulse 84 11/21/24 13:18 BP 120/84 11/21/24 13:18 BMI result Body Mass Index 40.9 Const General: cooperative, healthy appearing, comfortable and no acute distress Orientation/consciousness: patient oriented x3 Neck Neck: Yes normal visual inspection and Yes no JVD Resp Effort & Inspection: normal respiratory effort Auscultation: clear to auscultation bilaterally, no rales, no rhonchi and no wheezes Cardio Jugular venous distension: no JVD Rate: regular rate Rhythm: regular rhythm Heart sounds: S1 normal heart sound present, S2 normal heart sound present, no murmurs and no rubs Neuro General: patient oriented x3 Extrem General: Yes normal to inspection, No no pedal edema and No calf tenderness Psych Appearance: grossly normal Mental Status: mental status grossly normal Speech and movement: Normal speech and movement present Assessment & Plan Assessment & Plan (1) Hypertensive heart disease: Code(s): I11.9 - Hypertensive heart disease without heart failure Category: Medical Qualifiers: Heart failure presence: without heart failure Qualified Code(s): I11.9 - Hypertensive heart disease without heart failure Plan: Hypertensive heart disease with severe left ventricular hypertrophy most likely related to longstanding hypertension and probably untreated sleep apnea and obesity. He is currently saying that he was not been prescribed a CPAP therapy and was told that he does not have sleep apnea. However his home sleep study he was highly suggestive of obstructive sleep apnea. I would strongly recommend him to be referred to a sleep specialist to initiate therapy. Blood pressure is currently well optimized on current therapy with amlodipine lisinopril. Advised to continue the same. Low-salt diet was discussed. Signs and symptoms of heart failure were discussed. (2) Ascending aorta dilatation: Code(s): I77.810 - Thoracic aortic ectasia Category: Medical Plan: Ascending aortic aneurysm which is mild. Continue monitor by echocardiogram on annual basis. Will check echocardiogram near future. Management will be medical at this point time at current size. We discussed about avoiding sudden strenuous isometric exercise. Aggressive control blood pressure is advised. (3) Cardiac arrhythmia: Code(s): I49.9 - Cardiac arrhythmia, unspecified Category: Medical Plan: Cardiac arrhythmias with predominantly atrial arrhythmias. Currently without any symptoms. High risk for development of atrial fibrillation. Advised to call me with any new symptoms with increased palpitations. Will follow up in the clinic in 1 year's time, sooner p.r.n.. Thank you for allowing me to partake in his care Coding Level of Care Code Est Pt Level 4 (53029) Complex EM visit Add On G2211 Diagnoses Hypertensive heart disease without heart failure I11.9 Heart failure presence: without heart failure Ascending aorta dilatation I77.810 Cardiac arrhythmia I49.9
== END 2024-11-21 13:57 | disposition home or self-care (01) ==
PROVIDERS: PCP Physician Assistant; Visit Provider Internal Medicine Cardiovascular Disease
DX: I11.9 Hypertensive heart disease without heart failure (principal); I77.810 Thoracic aortic ectasia; I49.9 Cardiac arrhythmia, unspecified
CPT/HCPCS: 99214; G2211

== ENCOUNTER → 2024-11-21 13:03 | Outpatient (BNVA) | payer OTHER, SELFPAY | PROVIDERS: PCP Physician Assistant; Visit Provider Internal Medicine Cardiovascular Disease | DX: I11.9 Hypertensive heart disease without heart failure (principal); I77.810 Thoracic aortic ectasia; I49.9 Cardiac arrhythmia, unspecified | CPT/HCPCS: 99212 ==

== ENCOUNTER 2024-11-22 15:54 | Outpatient (REF) | payer OTHER, SELFPAY ==
--- NOTE | ~2024-11-22 | CT_ITS ---
CLINICAL HISTORY: F17.210 - Nicotine dependence, cigarettes, uncomplicated CT lung cancer screening (LDCT) Comparison: CT/MD/SR - CT LUNG SCREENING - 11/20/23 11:25 EST Technique: Axial CT images of the chest using low-dose technique. Referring provider counseled the patient on shared decision-making for LDCT screening. Additional counseling was provided on smoking cessation. Effective radiation dose total: DLP 93.6 mGycm, CTDIvol 2.5 mGy. Findings: A new likely calcified nodule is seen in the left lower lobe on image number 104 series number 4 measuring up to 3 mm in diameter. this is a likely granuloma. Coronary artery calcifications: None Limited upper abdomen: Unremarkable All nodules seen previously are unchanged. Impression: LungRADS 2 - Benign Appearance: Continue annual screening with low dose Chest CT in 12 months. ##L2# Category 1: Normal; continue annual screening Category 2: Benign appearance or behavior, continue annual screening Category 3: Probably benign, [address] recommended Category 4A: Suspicious, [address] recommended; may consider PET/CT Category 4B: Suspicious, Additional diagnostics and/or tissue sampling recommended Category 4X: Suspicious, Additional diagnostics and/or tissue sampling recommended Category 0: Recalls (incomplete screen due to Incomplete coverage, Noise, Respiratory motion, Expiration, Obscured by acute abnormality) This document has been electronically signed by: Efren Khoury MD on 11/23/2024 13:23:52
== END 2024-11-22 15:55 | disposition home or self-care (01) ==
LOC: HO.CT 15:54
PROVIDERS: PCP Physician Assistant; Visit Provider Physician Assistant Medical
DX: Z12.2 Encounter for screening for malignant neoplasm of respiratory organs (principal); F17.210 Nicotine dependence, cigarettes, uncomplicated
CPT/HCPCS: 71271

== ENCOUNTER → 2024-11-22 15:58 | Outpatient (BNV) | payer OTHER, SELFPAY | PROVIDERS: PCP Physician Assistant; Visit Provider Radiology Diagnostic Radiology | DX: F17.210 Nicotine dependence, cigarettes, uncomplicated (principal) | CPT/HCPCS: 71271 ==

== ENCOUNTER 2024-11-23 09:33 | Outpatient (AMB) | payer OTHER, SELFPAY ==
--- NOTE | 2024-11-23 09:44 | A.OFFVIS_ITS ---
Vital Signs 11/23/24 09:55 Height 5 ft 11 in Weight 292 lb 5.327 oz BMI 40.8 BP 134/84 Blood Pressure Location Lt brachial Position Sitting Pulse 94 Pulse Source Pulse Oximeter Pulse Oximetry (%) 94 Oxygen Delivery Method Room Air Intake Visit Reasons: joint pain Intake Note: Patient presents for joint pain. I feel both shoulder pain, lower back pain and RT sciatica nerve pain. I been feeling 5 years of RT sciatica nerve pain and both shoulder pain. 20 years lower back pain. I have taking over the counter pain meds and is short relieve and randomly I take Oxycodone. one. Allergies No Known Allergies Allergy (Verified 11/23/24 09:53) Medication List - Last Reconciled 11/23/24 by Teresa Mojica MD acetaminophen ER (Tylenol Arthritis Pain) 650 mg PO Q12H 30 days amlodipine 10 mg PO DAILY 90 days aspirin (Ecotrin Low Strength) 81 mg PO DAILY atorvastatin 40 mg PO DAILY lisinopril 40 mg PO DAILY 90 days nicotine 1 patch transdermal DAILY 14 days oxycodone 5 mg PO Q8H PRN 7 days tirzepatide (weight loss) (Zepbound) 7.5 mg (0.5 mL) subcut QWEEK 4 weeks HPI Comments Details: Patient is a 54 y.o. 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 No personal or family history of psoriasis, rheumatoid arthritis or any autoimmune disease. Of note he is having an exacerbation of his right shoulder. Noted that about 2- 3 weeks ago he fell on ice and injured his right shoulder. Requesting an injection today [facility] Medical History HTN (hypertension) HLD (hyperlipidemia) JONATHAN (obstructive sleep apnea) Morbid obesity Nicotine dependence, cigarettes, uncomplicated Lumbar spondylosis Erectile dysfunction Surgical History History of appendectomy History of carpal tunnel surgery History of colonoscopy Family History Mother Lung cancer CAD (coronary artery disease) Father Lung cancer CAD (coronary artery disease) Brother CAD (coronary artery disease) Sister CAD (coronary artery disease) Social History Housing: House Alcohol intake: current Alcohol intake frequency: 0-2 drinks per day Alcohol type: beer Patient Tobacco Use Status: Current everyday Tobacco user Tobacco use type: Cigarette Cigarette Packs Per Day: 0.25 Cigarettes Per Day: 4 Years Smoked: 43 , prior 42 yrs x 1 ppd e-Cigarette/Vaping Use: Never Used Second Hand Smoke Exposure: Yes service: No Current occupational status: unemployed 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 Current occupational exposures/hazards: No Cognitive needs: No Hearing needs: No Vision needs: No Review of Systems Const Details: Review of Systems Constitutional: Denies fever, chills, weight loss ENT: Denies vision changes, eye pain or eye redness, dental caries, dry mouth GI: Denies nausea, vomiting, diarrhea, abdominal pain, change in BM Pulm: Denies SOB, BERNAL, hemoptysis, wheezing Cards: Denies chest pain, palpitations Skin: Denies Raynaud's, rash, nail changes, photosensitivity, [employer]PER[employer]: Denies headaches, weakness, paresthesias, recurrent falls MSK: as per HPI All other systems reviewed and are unremarkable except noted above Physical Exam Vital Signs: Last Vital Signs Pulse 94 11/23/24 09:55 BP 134/84 11/23/24 09:55 Pulse Ox 94 11/23/24 09:55 Oxygen Delivery Method Room Air 11/23/24 09:55 BMI result Body Mass Index 40.8 Vital signs reviewed Physical Examination CONSTITUITIONAL Patient alert and cooperative. Well appearing and in no apparent painful distress HEENT Conjunctiva and sclera clear. ?Pupils equal round and reactive to light. ?No lymphadenopathy. ? CHEST/RESPIRATORY SYSTEM Normal respiratory effort and able to speak in complete sentences. ?Clear to auscultation bilaterally. ?No crackles, rales, rhonchi, wheezes heard. CARDIAC SYSTEM Regular rate and rhythm. ?S1 and S2 heard no murmurs. ?Radial pulses intact bilaterally MSK Hands: ?Good metal handler strength bilaterally. No deformities noted. ?No synovitis noted to the MCPs, PIPs or DIPs. ?No tenderness to palpation of these joints. Large hands with Heberden nodes noted. Wrists: ?Full range of motion at the wrists without pain. ?No tenderness to palpation or synovitis noted to the wrists. Elbows: Full range of motion without pain. No tenderness, weakness, swelling, increased warmth or erythema. Shoulders: Decreased range of motion to bilateral shoulders Knees: ?Full range of motion. ?No tenderness, swelling, increased warmth or erythema.? Minimal crepitations felt bilaterally Ankles: Full range of motion. ?No tenderness, swelling, increased warmth or erythema.? Feet: ?Negative squeeze test. ?No tenderness to palpation or swelling of the MTPs. Tender points:?No tenderness to palpation of the bilateral trapezius, supraspinatus, greater trochanters, anterior costochondral junctions, bilateral gluteal areas, bilateral suboccipital muscle insertions SKIN Skin intact without rashes. Office Procedures AMB Joint Injection/Aspiration Joint Injection/Aspiration Details: Procedure was explained to the patient and consent was obtained. ? The area of interest was identified and confirmed with patient. ?This was subsequently cleaned with chlorhexidine x3. ? The area was then anesthetized using ethyl chloride spray. 40 mg Kenalog with 1 cc 1% lidocaine was injected without issue. ?Minimal to no bleeding. ?Patient tolerated procedure. Primary Site: right shoulder Prep: site was prepped using aseptic technique and ethochloride spray was applied Injected: 40 mg of and Kenalog Procedure: The patient tolerated the procedure well Coding 59187 - Large joint Procedure code (CPT) selection complete Office Meds lidocaine (PF) 10 mg/mL (1 %) injection solution Performing Provider: Teresa Mojica MD Performing Location: [facility] Rheumatology Administered by: Teresa Mojica MD on 11/23/24 10:38 Dose Route Admin Location Dispensed Lot Number Expiration Date [facility] Sponge Press Operator 1 mL Infiltration right subacromial bursa 2 mL [id number] 12/13/26 91902-975-94 [facility] Kenalog 40 mg/mL suspension for injection Performing Provider: Teresa Mojica MD Performing Location: [facility] Rheumatology Administered by: Teresa Mojica MD on 11/23/24 10:38 Dose Route Admin Location Dispensed Lot Number Expiration Date [facility] Sponge Press Operator 40 mg intra-articular right subacromial bursa 1 mL [id number] 03/14/26 [address]-3 [employer] Results Reviewed Results Reviewed: XR Right Shoulder 03/2024 FINDINGS: The bones are intact. No fracture or dislocation. No abnormal soft tissue calcifications. There is no significant narrowing of the glenohumeral joint. Large osteophyte extends off the distal clavicle at the acromioclavicular joint possibly causing impingement. No abnormal soft tissue calcifications. IMPRESSION: Large osteophyte extends off the distal clavicle at the acromioclavicular joint possibly causing impingement. XR L spine 03/2024 LUMBAR SPINE: Dextroscoliosis of the lumbar spine. Redemonstration of anterior wedging of T11, T12 and L1 vertebral bodies with endplate irregularities and Schmorl's nodes better characterized on MRI. Multilevel lumbar spondylosis with multilevel loss of disc space height most notable at L4-L5. Grade 1 anterolisthesis of L4 on L5 with possible spondylolysis. Facet arthritis in the mid to lower lumbar spine. IMPRESSION: 1. Redemonstration of anterior wedging of T11, T12 and L1 vertebral bodies with endplate irregularities and Schmorl's nodes better characterized on MRI. 2. Multilevel lumbar spondylosis most notable at L4-L5. Grade 1 anterolisthesis of L4 on L5 with possible spondylolysis. 3. Facet arthritis in the mid to lower lumbar spine. Assessment & Plan Assessment & Plan (1) Generalized osteoarthritis: Code(s): M15.9 - Polyosteoarthritis, unspecified Plan: #Polyarticular OA Patient is a 54-year-old male with polyarthralgias specifically back and bilateral shoulders sent for evaluation. History and examination is consistent with polyarticular osteoarthritis. No suspicion of rheumatoid arthritis, psoriatic arthritis or any other underlying autoimmune or autoinflammatory arthritides Status post right subacromial bursa injection today. Recommend follow up with ortho, pain management and physical therapy Patient currently alternate between Tylenol, ibuprofen, and naproxen. I agree with this regimen. Patient can return p.r.n. Plan I spent 30 minutes reviewing the record and labs, taking a history, examining the patient, discussing the treatment plan, ordering diagnostic work up and documenting in the medical record Orders: Orders AMB Joint Injection/Aspiration Today M15.9 - Polyosteoarthritis, unspecified, M77.8 - Other enthesopathies, not elsewhere classified Medications: New lidocaine (PF) 1 mL Infiltration ONCE 2 mL 0RF M15.9 - Polyosteoarthritis, unspecified, M77.8 - Other enthesopathies, not elsewhere classified Kenalog (triamcinolone acetonide) 40 mg intra-articular ONCE 1 mL 0RF NS M15.9 - Polyosteoarthritis, unspecified, M77.8 - Other enthesopathies, not elsewhere classified Coding Level of Care Code New Pt Level 3 (10363) Diagnoses Generalized osteoarthritis M15.9 CPT Codes Coding - 21451 Large joint: 75354 - Large joint ([id number])
[2024-11-23 09:55] VITALS: BP 134/84; PULSE 94; O2SAT 94; BMI 40.8
== END 2024-11-23 10:32 | disposition home or self-care (01) ==
LOC: HO.RHE 09:34
PROVIDERS: PCP Physician Assistant; Visit Provider Student in an Organized Health Care Education/Training Program
DX: M77.8 Other enthesopathies, not elsewhere classified (principal); M15.8 Other polyosteoarthritis
CPT/HCPCS: 20610; 99203

== ENCOUNTER → 2024-11-23 09:33 | Outpatient (BNVA) | payer OTHER, SELFPAY | PROVIDERS: PCP Physician Assistant; Visit Provider Student in an Organized Health Care Education/Training Program | DX: M15.9 Polyosteoarthritis, unspecified (principal) | CPT/HCPCS: 20610; 99202; J3300 ==

== ENCOUNTER → 2024-12-09 09:38 | Outpatient (REF) | payer OTHER, SELFPAY ==
--- NOTE | 2024-12-09 09:41 | CA_ITS ---
Transthoracic Echocardiogram Patient (Last, First, Middle): Joe Esquivel A Gender: Male Date of : 1970 Age: 54 Procedure Date: 12/09/2024 Procedure Type: Transthoracic Echocardiogram Location: OP Height: 182.88 cm Weight: 127.01 kg BSA: 2.46 m2 Heart Rate: bpm BP: 158 / 82 mmHg Construction Site Crossing Guard: TO Referring MD: Blake Parks MD Relief Map Modeler: Blake Parks MD Symptoms: I77.810 - Thoracic aortic ectasia Study Quality: Fair/Contrast ECG Rhythm: Sinus Conclusions: - 1. Normal LV ejection fraction with moderate left ventricular hypertrophy with severe asymmetric septal hypertrophy with impaired relaxation filling pattern with a very focal thinned out area of the mid anteroseptum 2. Moderately dilated left atrium 3. Possible mild aortic stenosis with mean gradient of 18 mm Hg 4. Mildly dilated ascending aorta 4.2 cm Findings Procedure Information Contrast agent, definity, is being given per protocol without apparent complications. Left Ventricle Normal left ventricular size and systolic function. There is moderately increased left ventricular wall thickness. The visually estimated ejection fraction is between 55-60%. There is no dynamic left ventricular outflow tract obstruction. Spectral Doppler is indicative of an impaired relaxation filling pattern. E/E prime ratio is between 8 and 15 consistent with indeterminate filling pressures. There is severe septal asymmetric hypertrophy. that is very focal area of thinning of the mid anteroseptal wall with preserved contractility around it. There was no clear shunting at that side suggestive of a muscular VSD. etiology of this is unclear. Will obtain cardiac MRI Right Ventricle Normal right ventricular cavity size and systolic function. Atria The left atrium is moderately dilated. There is no evidence of interatrial shunt. The right atrium is mildly dilated. Aortic Valve There is mild calcification of the aortic valve. There is mild thickening of the aortic valve. There is mild aortic valve stenosis. The peak aortic velocity is 2.63 m/s. The mean gradient is 18 mmHg. There is no aortic valve regurgitation. Mitral Valve Likely normal mitral valve structure and function. There is trace mitral valve regurgitation. There is no mitral valve stenosis. Pulmonic Valve The pulmonic valve is likely normal. There is trace to mild pulmonic valve regurgitation. Tricuspid Valve Likely normal tricuspid valve structure and function. Tricuspid regurgitation envelope is inadequate for calculation of right ventricular systolic pressure. Indeterminate right atrial pressure. Great Vessels The aorta was not well visualized. The pulmonary artery was not well visualized. There is mild dilatation of the ascending aorta measuring 4.20 cm. Venous The inferior vena cava was not well visualized. Pericardium/Pleural The pericardium was not well visualized. Prior Study Comparison Changes noted compared to prior study dated: 10/05/2023. this is a very focal area of thinning of the mid anteroseptal wall of unclear etiology. Cardiac MRI will be suggested to rule out infiltrative cardiac disease Measurements 2D Linear Measurements IVSd: 2.04 0.6-0.9/0.6-1.0 cm LVIDd: 5.17 3.9-5.3/4.2-5.9 cm LVIDd Index: 2.10 2.4-3.2/2.2-3.1 cm/m2 LVIDs: 3.55 2.0-3.6 cm LVPWd: 1.49 0.7-1.1 cm LV Mass: 541.13 67-162/88-224 g LV Mass Index: 219.97 43-95/49-115 g/m2 LVOT Diam: 2.60 3.0+(-)1.3 cm 2D Systolic Function EF 4C: 55.60 >55% EF 2C: 56.00 >55% EF BiP: 55.20 >55% Mitral Valve MV Pk E: 0.63 MV PK A: 0.88 MV Decel Time: 127.00 E/A: 0.70 E'Lateral: 6.64 E'Medial: 4.03 E/E' Med: 15.70 E/E' Lat: 9.50 PHT: 37.00 MVA PHT: 5.95 Decel [place]: 4.97 Aortic Valve AoV Pk Leo: 2.63 AoV Mn Leo: 2.08 AoV VTI: 0.51 AoV Pk Grad: 28.00 Aov Mn Grad: 18.00 RONALD Cont.VTI: 2.74 LVOT LVOT Pk Leo: 1.38 LVOT Mn Leo: 0.98 LVOT VTI: 0.26 LVOT Pk Grad: 8.00 LVOT Mn Grad: 4.00 LVOT Diam: 2.60 LVOT Area: 5.31 Diastolic Function MV Pk E: 0.63 MV Pk A: 0.88 E/A: 0.70 E'Medial: 4.03 E/E' Med: 15.70 E' Laterial: 6.64 E/E' Lat: 9.50 Right Ventricle TAPSE (mm): 35.50 TVS' Leo: 16.40 Tricuspid Valve RA Press: 8.00 Great Vessels Aorta Sinus of Valsalva: 4.40 2.0-3.5 cm Ao Asc: 4.20 2.1-3.4 cm Updated in Other Vendor System with Status of Final Blake Parks MD electronically signed on 12/10/2024 12:31:02 PM with status of Final
== END ==
LOC: HO.CARD 09:38
PROVIDERS: PCP Physician Assistant; Visit Provider Internal Medicine Cardiovascular Disease
DX: I77.810 Thoracic aortic ectasia (principal)
CPT/HCPCS: 93306; Q9957

== ENCOUNTER → 2024-12-09 09:41 | Outpatient (BNV) | payer OTHER, SELFPAY | PROVIDERS: PCP Physician Assistant; Visit Provider Internal Medicine Cardiovascular Disease | DX: I35.0 Nonrheumatic aortic (valve) stenosis (principal); I34.0 Nonrheumatic mitral (valve) insufficiency | CPT/HCPCS: 93306 ==

== ENCOUNTER 2025-01-13 06:02 | Outpatient (REF) | payer OTHER, SELFPAY ==
[2025-01-13 06:55] LABS: Microalbumin Urine < 5.0 mg/L
[2025-01-13 07:18] LABS: Hematocrit 45.9 % (42.0-52.0); Mean Corpuscular HGB Conc 34.9 g/dl (31.0-36.0); Mean Corpuscular Hemoglobin 32.7 pg (27.0-33.0); Mean Corpuscular Volume 93.7 fL (80.0-98.0); Mean Platelet Volume 9.9 fL (9.4-12.4); Platelet Count 146 X10*3/uL (160-400); Red Cell Distribution Width 12.8 % (11.0-16.0); White Blood Count 6.2 X10*3/uL (4.8-10.8)
[2025-01-13 08:19] LABS: Alanine Aminotransferase 20 U/L (0-40); Albumin Level 4.4 g/dL (3.5-5.0); Alkaline Phosphatase 74 U/L (39-117); Anion Gap 14 (12-20); Aspartate Amino Transferase 19 U/L (5-37); Bilirubin Total 0.6 mg/dL (0.0-1.0); Blood Urea Nitrogen 16 mg/dL (9-16); Calcium 9.1 mg/dL (8.4-10.2); Carbon Dioxide 25 mmol/L (22-29); Chloride 105 mmol/L (96-108); Cholesterol 189 mg/dL (<200); Estimated Glomerular Filt Rate > 60; Glucose Fasting 96 mg/dL (60-99); Glucose Random 96 mg/dL (60-115); HDL Cholesterol 44 mg/dL (>40); LDL Cholesterol Calculated 127 mg/dL (<100); Potassium 4.3 mmol/L (3.3-5.1); Sodium 140 mmol/L (135-145); Total Protein 7.2 g/dL (6.5-8.0); Triglycerides 91 mg/dL (<150)
== END 2025-01-13 06:03 | disposition home or self-care (01) ==
LOC: HO.LAB 06:02
PROVIDERS: Absent Provider Physician Assistant; PCP Physician Assistant; Visit Provider Internal Medicine Cardiovascular Disease
DX: I77.810 Thoracic aortic ectasia (principal); I10 Essential (primary) hypertension; I11.9 Hypertensive heart disease without heart failure
CPT/HCPCS: 36415; 80048; 80053; 80061; 82570; 85027

== ENCOUNTER 2025-02-22 15:28 | Outpatient (AMB) | payer OTHER, SELFPAY ==
[2025-02-22 15:46] VITALS: BP 142/90; PULSE 82; TEMP 36.1; O2SAT 93; BMI 40.2
--- NOTE | 2025-02-22 15:46 | MHC.PC.OV ---
Vital Signs 02/22/25 15:46 Height 5 ft 11 in Weight 288 lb BMI 40.2 BP 142/90 H Blood Pressure Location Lt brachial Position Sitting Pulse 82 Pulse Source Pulse Oximeter Temp 96.9 F Temp Source Temporal Artery Scan Pulse Oximetry (%) 93 Oxygen Delivery Method Room Air Intake Visit Reasons: f/u HTN Public Bath Attendant Required: No Accompanied by: Self / Same As Patient Allergies No Known Allergies Allergy (Verified 02/22/25 15:48) Medication List - Last Reconciled 02/22/25 by Juwan Gupta PA-C acetaminophen ER (Tylenol Arthritis Pain) 650 mg PO Q12H 30 days amlodipine 10 mg PO DAILY 90 days aspirin (Ecotrin Low Strength) 81 mg PO DAILY atorvastatin 40 mg PO DAILY lisinopril 40 mg PO DAILY 90 days nicotine 1 patch transdermal DAILY 14 days oxycodone 5 mg PO Q8H PRN 7 days tirzepatide (weight loss) (Zepbound) 7.5 mg (0.5 mL) subcut QWEEK 4 weeks tirzepatide (weight loss) (Zepbound) 10 mg (0.5 mL) subcut QWEEK 4 weeks Tobacco use date assessed: 02/22/25 Dental Screening Dental Screen Date: 02/22/25 Did you have a dental visit in the last 12 months?: Yes Did you have a dental problem in the last 6 months where you did not have access to dental care?: No Was dental information given to patient?: Patient has dentist HPI f/u HTN HPI Details Joe is a 54-year-old male here today a follow-up visit. Patient's past medical history significant for hypertension, hypertensive heart disease, pulmonary nodule, lower back pain with radiculopathy left side, obesity. ? . Class 3 Obesity: He continues on Wegovy though has not lost much weight. He has been able lose weight with Zepbound. Will continue to help titrate per weight loss protocol. ... Tobacco dependency: He does understand he needs to quit smoking. He reports he has cut down his smoking though does understand he really does need to quit smoking. .. Hyperlipidemia: He reports he has not been taking statin therapy for quite some time now. He has changed his diet and his total cholesterol and LDL has much improved. ? .. ? HTN: Blood pressure today in office acceptable. Patient continues on amlodipine and lisinopril 40 mg.? He does check his blood pressure seldomly at home and reports 120s to 130 systolic.? Otherwise denies any chest discomfort, headaches, vision issues. .. Hypertensive heart disease: Now followed by Cardiology. Echocardiogram showing LVH consistent with hypertensive heart disease. Blood pressure slightly elevated today in office. Hypertensive heart disease with likely related to uncontrolled obstructive sleep apnea and hypertension. ? .. ? Lumbar spine pain: Patient uses low-dose oxycodone 5mg on a very p.r.n. basis, 1 script 21 tabs will last 6 months. He reports he continues to have some worsening lower lumbar spine pain that gets in the way of his daily activities. Has seen pain management and has gotten x-rays of his lumbar spine and hips. Does have moderate arthritis in his right hip and signs arthritis in his lumbar spine. Laboratory Tests 08/17/23 02/23/24 08/22/24 06:22 09:52 06:16 RBC 4.71 Hgb 15.9 Cholesterol 135 164 LDL Cholesterol, C alc 122 H 77 105 H PSA Screen 3.83 Urine Microalbumin 01/13/25 01/13/25 06:09 06:11 RBC 4.90 Hgb Cholesterol 189 LDL Cholesterol, C alc 127 H PSA Screen Urine Microalbumin < 5.0 PFSH Medical History HTN (hypertension) HLD (hyperlipidemia) JONATHAN (obstructive sleep apnea) Morbid obesity Nicotine dependence, cigarettes, uncomplicated Lumbar spondylosis Erectile dysfunction Surgical History History of appendectomy History of carpal tunnel surgery History of colonoscopy Family History Mother Lung cancer CAD (coronary artery disease) Father Lung cancer CAD (coronary artery disease) Brother CAD (coronary artery disease) Sister CAD (coronary artery disease) Social History Housing: House Alcohol intake: current Alcohol intake frequency: 0-2 drinks per day Alcohol type: beer Patient Tobacco Use Status: Current everyday Tobacco user Tobacco use type: Cigarette Cigarette Packs Per Day: 0.25 Cigarettes Per Day: 4 Years Smoked: 43 , prior 42 yrs x 1 ppd e-Cigarette/Vaping Use: Never Used Second Hand Smoke Exposure: Yes service: No Current occupational status: unemployed Current occupation: [employer] Current occupational exposures/hazards: No Cognitive needs: No Hearing needs: No Vision needs: No Questionnaire PHQ-9 Over the last 2 weeks, how often have you been bothered by any of the following problems? 1. Little interest or pleasure in doing things: not at all 2. Feeling down, depressed, or hopeless: not at all 3. Trouble falling or staying asleep, or sleeping too much: not at all 4. Feeling tired or having little energy: not at all 5. Poor appetite or overeating: not at all 6. Feeling bad about yourself - or that you are a failure or have let yourself or your family down: not at all 7. Trouble concentrating on things, such as reading the newspaper or watching television: not at all 8. Moving or speaking so slowly that other people could have noticed. Or the opposite - being so fidgety or restless that you have been moving around a lot more than usual: not at all 9. Thoughts that you would be better off or of hurting yourself in some way: not at all Total score: 0 Depression Screening Interpretation: Negative Depression Screening Done: Yes 11891 - PHQ-9 Billing: Yes Source: Developed by Drs. Marcio Loomis, Georgina Alcantara, Camden Camacho and colleagues, with an educational dontrell from [employer]. Thrive Questionnaire Date Thrive assessed: 02/22/25 I am a: Patient What is your living situation today?: I have a steady place to live Within the past 12 months, did the food you bought not last and you didn't have the money to get more?: Never true Within the past 12 months, did you worry whether your food would run out before you got money to buy more?: Never true Do you have trouble paying for medicines?: No Do you have trouble getting transportation to medical appointments?: No Do you have trouble paying your heating and electricity bill?: No Do you have trouble taking care of your child, family member or friend?: No Do you have trouble with day-to-day activities such as bathing, preparing meals, shopping, managing finances, etc.?: No Are you currently unemployed and looking for a job?: No Are you interested in more education?: No Please select the resources that you would like help with: None Currently or been in a relationship where the following occur: No concerns reported THRIVE Score: 0 AUDIT C Alcohol Use Questionnaire (AUDIT-C) 1. How often do you have a drink containing alcohol?: 2-4 times a month 2. How many drinks containing alcohol do you have on a typical day when you are drinking?: 1 or 2 3. How often do you have six or more drinks on one occasion?: Never Total Score: 2 LASHON-7 AMB Questionnaire LASHON-7 Date LASHON - 7 assessed: 02/22/25 Feeling nervous, anxious, or on edge: 0 = Not at all Not being able to stop or control worryin = Not at all Worrying too much about different things: 0 = Not at all Trouble relaxin = Not at all Being so restless that it is hard to sit still: 0 = Not at all Becoming easily annoyed or irritable: 0 = Not at all Feeling afraid as if something awful might happen: 0 = Not at all Total LASHON-7 score (0-4 normal; 5-9 mild; 10-14 moderate; 15-21 severe): 0 Source: Developed by Drs. Marcio Loomis, Georgina Alcantara, Camden Camacho and colleagues, with an educational dontrell from [employer]. LASHON-7 Assessment Billing LASHON-7 Assessment Tool: LASHON-7 Assessment 13908 Review of Systems Const Denies excessive sweating, Denies fatigue and Denies headache(s) Eyes Denies loss of vision ENT Denies vertigo, Denies dizziness, Denies headache(s) and Denies sore throat Card Denies chest pain, Denies leg edema and Denies lightheadedness Resp Denies cough, Denies hemoptysis and Denies wheezing GI Denies abdominal pain, Denies melena, Denies constipation, Denies diarrhea and Denies vomiting Denies dysuria, Denies urinary frequency and Denies urinary urgency Musc Denies arthralgias, Denies joint swelling, Denies numbness and Denies tingling Skin/Breast Denies rash and Denies skin ulcer Neuro Denies Abnormal speech present, Denies behavioral changes, Denies vertigo, Denies dizziness, Denies headache(s), Denies loss of vision, Denies memory loss, Denies numbness and Denies tingling Psych Denies anxiety, Denies behavioral changes, Denies depression, Denies memory loss and Denies panic attacks Endo Denies excessive sweating, Denies fatigue, Denies flushing, Denies polydipsia and Denies polyuria Nimesh/Lymph Denies easy bleeding and Denies easy bruising Aller/Immun Denies wheezing Physical exam (Primary Care) Vital Signs: Last Vital Signs Temp 96.9 F 02/22/25 15:46 Pulse 82 02/22/25 15:46 BP 142/90 H 02/22/25 15:46 Pulse Ox 93 02/22/25 15:46 Oxygen Delivery Method Room Air 02/22/25 15:46 BMI result Body Mass Index 40.2 Tobacco/Smoking Status: Tobacco use Status Tobacco use date assessed 02/22/25 02/22/25 15:49 Patient Tobacco Use Status Current everyday Tobacco 02/22/25 15:48 Tobacco use type Cigarette 02/22/25 15:48 e-Cigarette/Vaping Use Never Used 02/22/25 15:48 PHQ-9: PHQ-9 Score PHQ-9: Total score 0 02/22/25 15:49 Depression Screening Interpretation: Negative Thrive Assessment: Date of Thrive Assessment Date Thrive assessed 02/22/25 02/22/25 15:49 Currently or been in a relationship where the following occur: No concerns reported Const General: healthy appearing, no acute distress, alert and awake Nutritional Appearance: well nourished Orientation/consciousness: oriented to person, oriented to place and oriented to time [facility] Head: Yes normocephalic Ears: TM's normal bilaterally General nose exam: Normal nasal mucous membranes and turbinates present Face and sinus: No sinus tenderness Mouth: Normal oral and palatal mucosa present and tongue normal Teeth and gingiva: dentition normal and gingiva normal Throat: Yes posterior oropharynx normal, Yes tonsils normal and Yes uvula midline Eyes Conjunctivae: conjunctivae normal Sclerae: sclerae normal Pupils: Equal, round and reactive pupils present EOM: EOMs intact bilaterally Direct Ophthalmoscopy: No no photophobia Neck Neck: Yes no lymphadenopathy and Yes no JVD Thyroid: Thyroid normal Carotids: no bruits Chest Chest palpation & inspection: no tenderness Resp Effort & Inspection: normal respiratory effort and not tachypneic Auscultation: no crackles, no rales, no rhonchi and no wheezes Cardio Jugular venous distension: no JVD Rate: regular rate Rhythm: regular rhythm Heart sounds: no murmurs and normal S1 and S2 Bruits: no carotid bruits Peripheral pulses: Peripheral pulses 2+ throughout GI Inspection: Yes normal to inspection, No abdominal wall ecchymosis and No visible herniation Palpation (GI): Soft to palpation, nontender, no hepatomegaly and no splenomegaly Auscultation: normal bowel sounds General: Yes no CVA tenderness Back/Spine/Pelvis Back: no CVA tenderness and No back tenderness Cervical Spine: cervical ROM normal Thoracic/Lumbar Spine: thoracic and lumbar spine normal to inspection, straight leg raise negative bilaterally, No thoraco-lumbar ROM limited and No lumbar spinal tenderness Skin General skin exam: no rashes or lesions noted and dry skin Lesions: no lesions Rashes: no rashes Wounds: no wounds Neuro General: oriented to person, oriented to place and oriented to time Cranial nerves: Yes Equal, round and reactive pupils present Cognition (Neuro): normal cognition Speech: No Abnormal speech present Gait exam (Neuro): Normal gait present Motor exam (neuro): no tremor noted Extrem Right upper extremity: full ROM Left upper extremity: full ROM Right lower extremity: full ROM; no edema Left lower extremity: full ROM; no edema Psych Appearance: grossly normal Mental Status: mental status grossly normal Speech and movement: Normal speech and movement present Affect: normal affect Attitude: cooperative Thought process: Normal thought process present Coding Level of Care Code Est Pt Level 4 (03466) Diagnoses Essential hypertension I10 Hypertension type: essential hypertension Tobacco dependence F17.200 Lumbar spondylosis M47.816 Class 3 obesity E66.813 Mixed hyperlipidemia E78.2 Hyperlipidemia type: mixed hyperlipidemia Hypertensive heart disease without heart failure I11.9 Heart failure presence: without heart failure Additional Codes LASHON-7 Assessment Billing - LASHON-7 Assessment Tool: LASHON-7 Assessment 63894 ([id number]) PHQ-9 - 96715 - PHQ-9 Billing: Yes ([id number]) Assessment & Plan Assessment & Plan (1) HTN (hypertension): Code(s): I10 - Essential (primary) hypertension Category: Medical Qualifiers: Hypertension type: essential hypertension Qualified Code(s): I10 - Essential (primary) hypertension Plan: Patient's blood pressure acceptable today in office. Will continue his current dose of lisinopril with goal blood pressure to remain below 140/90 (2) Tobacco dependence: Code(s): F17.200 - Nicotine dependence, unspecified, uncomplicated Category: Medical Plan: Patient does understand he needs to quit smoking. Does have nicotine replacement available to him though has found it very difficult to quit smoking even with nicotine replacement. (3) Lumbar spondylosis: Code(s): M47.816 - Spondylosis without myelopathy or radiculopathy, lumbar region Category: Medical Plan: Continues to follow [place] pain management. Anticipates an injection in his back to help him with his lower back pain. He does use low-dose oxycodone from time to time pain scales of 9-10.. #21 Tablets usually labs him 5-6 months. He has also hopeful on losing weight to help his lower back pain. (4) Class 3 obesity: Code(s): E66.813 - Obesity, class 3 Category: Medical Plan: Joe does understand his BMI is over 40 and will continue to up titrate his GLP 1 to help him lose weight. He has found some benefit on reducing his appetite with GLP 1. He has lost a bit of weight with Zepbound His hard for him to be physically active as he continues to have lower back pain (5) HLD (hyperlipidemia): Code(s): E78.5 - Hyperlipidemia, unspecified Category: Medical Qualifiers: Hyperlipidemia type: mixed hyperlipidemia Qualified Code(s): E78.2 - Mixed hyperlipidemia Plan: He stopped taking statin therapy quite some time ago, most recent lipid panel showing elevated total cholesterol and LDL. He agrees to restart statin therapy 3 times a week to help reduce his overall CV risk. Will LDL is to be below 100 (6) Hypertensive heart disease: Code(s): I11.9 - Hypertensive heart disease without heart failure Category: Medical Qualifiers: Heart failure presence: without heart failure Qualified Code(s): I11.9 - Hypertensive heart disease without heart failure Plan: As per HPI patient does have hypertensive heart disease likely secondary uncontrolled hypertension and obstructive sleep apnea. 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 Panel Fast 02/22/25 I11.9 - Hypertensive heart disease without heart failure Complete Blood Count no Diff 02/22/25 I11.9 - Hypertensive heart disease without heart failure Lipid Panel 02/22/25 E78.2 - Mixed hyperlipidemia Medications: Changed From atorvastatin 40 mg PO DAILY 30 tabs 5RF E78.2 - Mixed hyperlipidemia To atorvastatin 40 mg PO DAILY 90 tabs 1RF 90 days E78.2 - Mixed hyperlipidemia Refilled tirzepatide (weight loss) (Zepbound) 10 mg (0.5 mL) subcut QWEEK 2 mL 0RF 4 weeks G47.33 - Obstructive sleep apnea (adult) (pediatric) oxycodone Partial Fill upon patient request. 5 mg PO Q8H PRN 21 tabs 0RF pain 7 days M47.816 - Spondylosis without myelopathy or radiculopathy, lumbar region Patient Instructions: Goal: Blood pressure to remain below 140/90, LDL to be below 100 Barriers: Adherence to physical activity and healthy eating habits
== END 2025-02-22 16:13 | disposition home or self-care (01) ==
LOC: HO.HMCH 15:29
PROVIDERS: PCP Physician Assistant; Visit Provider Physician Assistant
DX: I11.9 Hypertensive heart disease without heart failure (principal); I10 Essential (primary) hypertension; E66.813 Obesity, class 3; Z68.41 Body mass index [BMI] 40.0-44.9, adult; F17.200 Nicotine dependence, unspecified, uncomplicated; M47.816 Spondylosis without myelopathy or radiculopathy, lumbar region; E78.2 Mixed hyperlipidemia

== ENCOUNTER → 2025-02-22 15:28 | Outpatient (BNVA) | payer OTHER, SELFPAY | PROVIDERS: PCP Physician Assistant; Visit Provider Physician Assistant | DX: I11.9 Hypertensive heart disease without heart failure (principal); R91.1 Solitary pulmonary nodule; E66.813 Obesity, class 3; E78.5 Hyperlipidemia, unspecified; I10 Essential (primary) hypertension; G47.33 Obstructive sleep apnea (adult) (pediatric); F17.210 Nicotine dependence, cigarettes, uncomplicated; M47.26 Other spondylosis with radiculopathy, lumbar region; E78.2 Mixed hyperlipidemia; Z68.41 Body mass index [BMI] 40.0-44.9, adult | CPT/HCPCS: 96127; 99212 ==

== ENCOUNTER 2025-03-10 09:48 | Outpatient (AMB) | payer OTHER, SELFPAY ==
--- NOTE | 2025-03-10 09:55 | MHC.OFFVIS ---
Vital Signs 03/10/25 09:58 Height 5 ft 11 in Weight 285 lb 0.923 oz BMI 39.8 BP 134/90 H Blood Pressure Location Lt brachial Position Sitting Pulse 85 Pulse Source Pulse Oximeter Pulse Oximetry (%) 98 Oxygen Delivery Method Room Air Intake Visit Reasons: RT shoulder inj Intake Note: Patient presents for cortisone injection follow up. Allergies No Known Allergies Allergy (Verified 03/10/25 09:57) Medication List - Last Reconciled 03/10/25 by Teresa Mojica MD acetaminophen ER (Tylenol Arthritis Pain) 650 mg PO Q12H 30 days amlodipine 10 mg PO DAILY 90 days aspirin (Ecotrin Low Strength) 81 mg PO DAILY atorvastatin 40 mg PO DAILY 90 days lisinopril 40 mg PO DAILY 90 days nicotine 1 patch transdermal DAILY 14 days oxycodone 5 mg PO Q8H PRN 7 days tirzepatide (weight loss) (Zepbound) 7.5 mg (0.5 mL) subcut QWEEK 4 weeks Held on 01/04/25. Instructions: Doctor's Order tirzepatide (weight loss) (Zepbound) 10 mg (0.5 mL) subcut QWEEK 4 weeks HPI Comments Details: Patient is a 54 y.o. male current every day smoker with hypertension complicated by hypertensive heart disease and CAD, HLD, polyarticular OA and sciatica presents today for follow up Interval History: Patient last seen 11/23/24 Visit summary - established care - Evaluated as polyarticular OA - Received right subacromial bursa injection Today - Injection helped - Here for repeat injection Rheumatologic History: Polyarticular OA Initial History: Patient is a 54 y.o. 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 No personal or family history of psoriasis, rheumatoid arthritis or any autoimmune disease. Of note he is having an exacerbation of his right shoulder. Noted that about 2-3 weeks ago he fell on ice and injured his right shoulder. Requesting an injection today Current Rheumatology Medication(s): [facility] Medical History HTN (hypertension) HLD (hyperlipidemia) JONATHAN (obstructive sleep apnea) Morbid obesity Nicotine dependence, cigarettes, uncomplicated Lumbar spondylosis Erectile dysfunction Surgical History History of appendectomy History of carpal tunnel surgery History of colonoscopy Family History Mother Lung cancer CAD (coronary artery disease) Father Lung cancer CAD (coronary artery disease) Brother CAD (coronary artery disease) Sister CAD (coronary artery disease) Social History Housing: House Alcohol intake: current Alcohol intake frequency: 0-2 drinks per day Alcohol type: beer Patient Tobacco Use Status: Current everyday Tobacco user Tobacco use type: Cigarette Cigarette Packs Per Day: 0.25 Cigarettes Per Day: 4 Years Smoked: 41 , prior 42 yrs x 1 ppd e-Cigarette/Vaping Use: Never Used Second Hand Smoke Exposure: Yes service: No Current occupational status: unemployed 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 Current occupational exposures/hazards: No Cognitive needs: No Hearing needs: No Vision needs: No Review of Systems Const Details: Review of Systems Constitutional: Denies fever, chills, weight loss ENT: Denies vision changes, eye pain or eye redness, dental caries, dry mouth GI: Denies nausea, vomiting, diarrhea, abdominal pain, change in BM Pulm: Denies SOB, BERNAL, hemoptysis, wheezing Cards: Denies chest pain, palpitations Skin: Denies Raynaud's, rash, nail changes, photosensitivity, DOUBLER OPERATOR: Denies headaches, weakness, paresthesias, recurrent falls MSK: as per HPI All other systems reviewed and are unremarkable except noted above Physical Exam Vital Signs: Last Vital Signs Pulse 85 03/10/25 09:58 BP 134/90 H 03/10/25 09:58 Pulse Ox 98 03/10/25 09:58 Oxygen Delivery Method Room Air 03/10/25 09:58 BMI result Body Mass Index 39.8 Vital signs reviewed Physical Examination CONSTITUITIONAL Patient alert and cooperative. Well appearing and in no apparent painful distress HEENT Conjunctiva and sclera clear. ?Pupils equal round and reactive to light. ?No lymphadenopathy. ? CHEST/RESPIRATORY SYSTEM Normal respiratory effort and able to speak in complete sentences. ?Clear to auscultation bilaterally. ?No crackles, rales, rhonchi, wheezes heard. CARDIAC SYSTEM Regular rate and rhythm. ?S1 and S2 heard no murmurs. ?Radial pulses intact bilaterally MSK Hands: ?Good clinical lab specialist strength bilaterally. No deformities noted. ?No synovitis noted to the MCPs, PIPs or DIPs. ?No tenderness to palpation of these joints. Large hands with Heberden nodes noted. Wrists: ?Full range of motion at the wrists without pain. ?No tenderness to palpation or synovitis noted to the wrists. Elbows: Full range of motion without pain. No tenderness, weakness, swelling, increased warmth or erythema. Shoulders: Decreased range of motion to bilateral shoulders Knees: ?Full range of motion. ?No tenderness, swelling, increased warmth or erythema.? Minimal crepitations felt bilaterally Ankles: Full range of motion. ?No tenderness, swelling, increased warmth or erythema.? Feet: ?Negative squeeze test. ?No tenderness to palpation or swelling of the MTPs. Tender points:?No tenderness to palpation of the bilateral trapezius, supraspinatus, greater trochanters, anterior costochondral junctions, bilateral gluteal areas, bilateral suboccipital muscle insertions SKIN Skin intact without rashes. Office Procedures AMB Joint Injection/Aspiration Joint Injection/Aspiration Details: Procedure was explained to the patient and informed consent was obtained. ? Risks associated with the procedure were discussed with the patient including but not limited to bleeding, infection, drug reactions and reactions to the topical anesthetic. Patient made aware of signs to look out for infectious complications. The area of interest was identified and confirmed with patient. ?This was subsequently cleaned with chlorhexidine x 2. ? The area was then anesthetized using ethyl chloride spray. 40 mg Kenalog with 1 cc 1% lidocaine was injected without issue. ?Minimal to no bleeding. ?Patient tolerated procedure. Primary Site: right shoulder Prep: site was prepped using aseptic technique and ethochloride spray was applied Injected: 40 mg of, Kenalog, with 1 mL of and 1% plain lidocaine Procedure: The patient tolerated the procedure well Coding 82780 - Glenohumeral/Tronchanteric Bursa/Intraarticular Procedure code (CPT) selection complete Office Meds lidocaine (PF) 10 mg/mL (1 %) injection solution Performing Provider: Teresa Mojica MD Per[place] [facility] Administered by: Teresa Mojica MD on 03/10/25 10:29 Dose Route Admin Location Dispensed Lot Number Expiration Date ND [employer] Helper 1 mL intra-articular right subacromial bursa 2 mL [id number] 11/12/26 89883-232-37 [employer] Total Dispensed Waste 2 mL 50 % Kenalog 40 mg/mL suspension for injection Performing Provider: Teresa Mojica MD Performing Location[place] [facility] Administered by: Teresa Mojica MD on 03/10/25 10:29 Dose Route Admin Location Dispensed Lot Number Expiration Date [facility] Plasterer Helper 40 mg intrabursal right subacromial bursa 1 mL [id number] 12/13/25 [address]-2 [employer] Total Dispensed Waste 1 mL 0 % Results Reviewed Results Reviewed: XR Right Shoulder 03/2024 FINDINGS: The bones are intact. No fracture or dislocation. No abnormal soft tissue calcifications. There is no significant narrowing of the glenohumeral joint. Large osteophyte extends off the distal clavicle at the acromioclavicular joint possibly causing impingement. No abnormal soft tissue calcifications. IMPRESSION: Large osteophyte extends off the distal clavicle at the acromioclavicular joint possibly causing impingement. XR L spine 03/2024 LUMBAR SPINE: Dextroscoliosis of the lumbar spine. Redemonstration of anterior wedging of T11, T12 and L1 vertebral bodies with endplate irregularities and Schmorl's nodes better characterized on MRI. Multilevel lumbar spondylosis with multilevel loss of disc space height most notable at L4-L5. Grade 1 anterolisthesis of L4 on L5 with possible spondylolysis. Facet arthritis in the mid to lower lumbar spine. IMPRESSION: 1. Redemonstration of anterior wedging of T11, T12 and L1 vertebral bodies with endplate irregularities and Schmorl's nodes better characterized on MRI. 2. Multilevel lumbar spondylosis most notable at L4-L5. Grade 1 anterolisthesis of L4 on L5 with possible spondylolysis. 3. Facet arthritis in the mid to lower lumbar spine. Assessment & Plan Assessment & Plan (1) Generalized osteoarthritis: Code(s): M15.9 - Polyosteoarthritis, unspecified Plan: #Polyarticular OA Patient is a 54-year-old male with polyarthralgias specifically back and bilateral shoulders sent for evaluation. History and examination is consistent with polyarticular osteoarthritis. No suspicion of rheumatoid arthritis, psoriatic arthritis or any other underlying autoimmune or autoinflammatory arthritides Status post right subacromial bursa injection today. Recommend follow up with ortho, pain management and physical therapy Patient currently alternate between Tylenol, ibuprofen, and naproxen. Patient can return p.r.n. Plan I spent 20 minutes reviewing the record and labs, taking a history, examining the patient, discussing the treatment plan, ordering diagnostic work up and documenting in the medical record Orders: Orders AMB Joint Injection/Aspiration Today M75.51 - Bursitis of right shoulder Coding Level of Care Code Est Pt Level 3 (99361) Diagnoses Generalized osteoarthritis M15.9 CPT Codes Coding - Joint 7: 67533 - Glenohumeral/Tronchanteric Bursa/Intraarticular ([id number])
[2025-03-10 09:58] VITALS: BP 134/90; PULSE 85; O2SAT 98; BMI 39.8
--- OUTSIDE RECORDS SUMMARY | 2025-03-10 10:19 | XMS_ITS | Patient Health Record ---
Author Organization [facility] Address [address] [place] [address] Care Team Providers Care Chief Design Branch Name Role Phone Juwan Gupta Primary Care Provider Unavailab Marcio Mckeon Unavailable [phone] Reason For Referral No Information Medications Medication SIG (Take, Route, Frequency, Duration) Notes Start Date End Date Status Lisinopril 40 MG 1 tablet Orally Once a day for 30 day(s) Active Norvasc 10 MG 1 tablet Orally Once a day for 30 day(s) Active oxyCODONE HCl 5 MG 1 capsule as needed Orally PRN Rare--for back pain Active Immunizations Vaccine Route Administration Date Status Comme nts Influenza Unknown 09/22/2018 Refused Social History Tobacco Use: Social History Observation Description Date Details (start date - stop date) Former Smoker NA - NA Tobacco Use/Smoking Question Answer Notes Patient is a former smoker How long has it been since you last smoked? 1-5 years Alcohol Screen Question Answer Notes Did you have a drink contain ing alcohol in the past year? Yes How often did you have a dri nk containing alcohol in the past year? Monthly or less (1 point) How many drinks did you have on a typical day when you were drinking in the past year? 5 or 6 drinks (2 points) How often did you have 6 or more drinks on one occasion in the past year? Less than monthly (1 point) Points 4 Interpretation Positive Section Notes: Nonsmoker x 1 year; no sig a lcohol Problems Problem Type SNOMED Code ICD Code Onset Dates Problem Status W/U Status Risk Notes Problem [id number] Encounter for screening for malignant neoplasm of colon (Z12.11) Active confirmed Problem [id number] Preprocedural examination (Z01.818) Active confirmed Plan Of Treatment Future Test Test Name Order Date COLONOSCOPY 09/22/2018 Insurance Providers Payer Name Payer Address Payer Phone Subscriber Number Group Number Insured Name Patient Relationship to Insured Coverage Start Date Coverage End Date [facility] PROFESSIONAL CLAIMS [address] [place] [address] [id number] EL[address] HELM Self - patient is the insured Medical (General) History Medical History History ICD Code Hypertension Denies ME,DM,CVA,Lung disease,renal dise ase Surgical History Surgery Date(Month/Year) Carpal tunnel release-both Appendectomy
== END 2025-03-10 10:23 | disposition home or self-care (01) ==
LOC: HO.RHE 09:48
PROVIDERS: PCP Physician Assistant; Visit Provider Student in an Organized Health Care Education/Training Program
DX: M75.51 Bursitis of right shoulder (principal); M15.9 Polyosteoarthritis, unspecified
CPT/HCPCS: 20610; 99213

== ENCOUNTER → 2025-03-10 09:48 | Outpatient (BNVA) | payer OTHER, SELFPAY | PROVIDERS: PCP Physician Assistant; Visit Provider Student in an Organized Health Care Education/Training Program | DX: M75.51 Bursitis of right shoulder (principal); M15.9 Polyosteoarthritis, unspecified | CPT/HCPCS: 20610; 99212; J3300 ==

== ENCOUNTER 2025-06-10 09:13 | Outpatient (AMB) | payer OTHER, SELFPAY ==
--- NOTE | 2025-06-10 09:14 | MHC.OFFWIV ---
Intake Vital Signs 06/10/25 09:17 Height 5 ft 11 in BP 118/80 Blood Pressure Location Lt brachial Position Sitting Pulse 142 H Pulse Source Pulse Oximeter Pulse Oximetry (%) 91 L Oxygen Delivery Method Room Air Intake Visit Reasons: EP difficulty breathing Patient Tobacco Use Status: Current everyday Tobacco user Allergies No Known Allergies Allergy (Verified 06/10/25 09:17) Do you need a note to return to daycare/school/sports/work: No HPI EP difficulty breathing HPI Details 55 year old male hx of hypertension hyperlipidemia, ED presents w/ sob and labored breathing x 10 days. Evidently labored w/ ambulation ambulatory O2 83% on RA doesnt wear o2 PE- diminished b/l w/ bibasilar crackles Hx and PE concerning for PNA vs PE vs bronchitis vs viral illness. Plan - ED patient Refused an ambulance. Verbalizes risk of driving self Call to [facility] and spoke w/ Dr. Ernandez [facility] Medical History HTN (hypertension) HLD (hyperlipidemia) JONATHAN (obstructive sleep apnea) Morbid obesity Nicotine dependence, cigarettes, uncomplicated Lumbar spondylosis Erectile dysfunction Surgical History History of appendectomy History of carpal tunnel surgery History of colonoscopy Family History Mother Lung cancer CAD (coronary artery disease) Father Lung cancer CAD (coronary artery disease) Brother CAD (coronary artery disease) Sister CAD (coronary artery disease) Social History Housing: House Alcohol intake: current Alcohol intake frequency: 0-2 drinks per day Alcohol type: beer Patient Tobacco Use Status: Current everyday Tobacco user Tobacco use type: Cigarette Cigarette Packs Per Day: 0.25 Cigarettes Per Day: 4 Years Smoked: 41 , prior 42 yrs x 1 ppd e-Cigarette/Vaping Use: Never Used Second Hand Smoke Exposure: Yes service: No Current occupational status: unemployed 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 Current occupational exposures/hazards: No Cognitive needs: No Hearing needs: No Vision needs: No Review of Systems Const Details: Constitutional : No Weight loss, No Fever, No Chills, No Fatigue, No Malaise ENT/Mouth : No sore throat, No Rhinorrhea Eyes: No Eye Pain, No Swelling, No Redness Cardiovascular : No Chest Pain, + SOB, No Dyspnea on Exertion, No Orthopnea, No Edema, No Palpitations Respiratory : No Cough, No Sputum, No Wheezing Gastrointestinal : No Nausea, No Vomiting, No Diarrhea, No Constipation, No abdominal Pain, No Hematochezia, No Melena Genitourinary : No Dysuria, No Urinary Frequency, No Hematuria, Musculoskeletal : No joint pain, No Myalgias, No Joint Swelling Skin : No Skin Lesions, No rash Neuro : No Weakness, No Numbness, No Dizziness, No Headache Psych : No Anxiety/Panic, No Depression Heme/Lymph: No Bruising, No Bleeding,No Lymphadenopathy Endocrine : No Polyuria, No Polydipsia All other systems reviewed and are negative All systems reviewed & are unremarkable except as noted in HPI and below Physical Exam Exam Exam: Appearance: Alert.? Oriented X3.? + acute distress.? Head: Normocephalic, atraumatic, no step-offs or deformities Eyes: Pupils equal, round and reactive to light.? ENT: Pharynx normal.??External ears normal, TMs normal bilaterally and EAC's normal. No pain with manipulation of external ears bilaterally. No mastoid tenderness. Neck: Normal inspection.? Neck supple.? CVS: Normal heart rate and rhythm.? Pulses normal.? Respiratory: + respiratory distress.? Breath sounds diminished & bibasilar faint crackles Abdomen: Soft and nontender.? Skin: Skin warm and dry.? Normal skin color.? Normal skin turgor.? Extremities: No lower extremity edema.? No calf ttp. 5/5 strength to bilateral upper and lower extremities Back: No midline tenderness, no C-spine tenderness, full range of motion, no CVA tenderness bilaterally Neuro: Oriented X 3.? No motor deficit.? No sensory deficit. CN 2-12 intact Vital Signs: Last Vital Signs Pulse 142 H 06/10/25 09:17 BP 118/80 06/10/25 09:17 Pulse Ox 91 L 06/10/25 09:17 Oxygen Delivery Method Room Air 06/10/25 09:17 vss Assessment & Plan Assessment & Plan (1) Shortness of breath: Code(s): R06.02 - Shortness of breath (2) HTN (hypertension): Code(s): I10 - Essential (primary) hypertension Qualifiers: Hypertension type: essential hypertension Qualified Code(s): I10 - Essential (primary) hypertension (3) Hypoxia: Code(s): R09.02 - Hypoxemia (4) Tachycardia: Code(s): R00.0 - Tachycardia, unspecified Plan Patient to go to [facility] Coding Level of Care Code Est Pt Level 3 (44996) Diagnoses Shortness of breath R06.02 Essential hypertension I10 Hypertension type: essential hypertension Hypoxia R09.02 Tachycardia R00.0
[2025-06-10 09:17] VITALS: BP 118/80; PULSE 142; O2SAT 91
--- OUTSIDE RECORDS SUMMARY | 2025-06-10 09:17 | XMS_ITS | Patient Health Record ---
Author Organization [facility] Address [address] [place] [address] Care Team Providers Care Litigation Counsel Name Role Phone Juwan Gupta Primary Care Provider Unavailab Marcio Mckeon Unavailable [phone] Reason For Referral No Information Medications Medication [...] Problem Status W/U Status Risk Notes Problem [id number] Encounter for screening for malignant neoplasm of colon (Z12.11) Active confirmed Problem [id number] Preprocedural examination (Z01.818) Active confirmed Plan Of Treatment Future Test Test Name Order Date COLONOSCOPY 09/22/2018 Insurance Providers Payer Name Payer Address Payer Phone Subscriber Number Group Number Insured Name Patient Relationship to Insured Coverage Start Date Coverage End Date [facility] PROFESSIONAL CLAIMS [address] [place] [address] [id number] ELIDIA HELM Self - patient is the insured Medical (General) History Medical History History ICD Code Hypertension Denies [place],DM,CVA,Lung disease,renal dise ase Surgical History Surgery Date(Month/Year) Carpal tunnel release-both Appendectomy
== END 2025-06-10 09:51 | disposition home or self-care (01) ==
PROVIDERS: PCP Physician Assistant; Visit Provider Physician Assistant
DX: R06.02 Shortness of breath (principal); I10 Essential (primary) hypertension; R09.02 Hypoxemia; R00.0 Tachycardia, unspecified

== ENCOUNTER 2025-06-10 09:41 | Inpatient (IN) | payer OTHER, SELFPAY ==
[2025-06-10] VITALS (9 sets, daily range): BP systolic 114–141; BP diastolic 72–90; PULSE 139–143; RESP 15–28; TEMP 36.3–36.6; O2SAT 90–94; BMI 31.6
--- NOTE | ~2025-06-10 | CT_ITS ---
CLINICAL HISTORY: hypoxia,tachypnea, tachycardia, r o pe CT angiography chest with contrast. MIP postprocessing. Comparison: CR - XR CHEST 1V - 06/10/25 11:[address]/SR - CT LUNG SCREENING - 11/22/24 16:29 EDT Findings: Images degraded by patient motion. This limits evaluation of the pulmonary arteries, especially the smaller segmental and subsegmental pulmonary arteries. Given limitation, no pulmonary emboli identified. Thoracic aorta is nonaneurysmal. Mild denny chamber cardiac enlargement with hypertrophy of the left ventricular wall and interventricular septum. Mildly prominent lymph nodes within the mediastinum and hilum measure up to 14 mm in short axis. Small bilateral pleural effusions. Dense areas of consolidation within the lower lobes bilaterally. Increasing size of pulmonary nodules within the right upper lobe measuring 8 mm in size. These previously measured 4-5 mm in size. No pneumothorax. Induration seen throughout the subcutaneous fat of the lower chest anteriorly. No free fluid or free air within the upper abdomen. Degenerative change throughout the thoracolumbar spine without acute bony abnormality. IMPRESSION: 1. No pulmonary emboli given the limitation of the patient motion. 2. Small bilateral pleural effusions with dense bilateral lower lobe consolidation most characteristic of pneumonia. 3. Increasing size of pulmonary nodules within the right upper lobe. This may be related to infectious, inflammatory, or neoplastic etiologies. Given that these are increased in size compared to the patient's prior study, follow up CT of the chest in 3 months suggested versus PET-CT. This document has been electronically signed by: Mohan Sahu MD on 06/10/2025 12:57:35
--- NOTE | ~2025-06-10 | XR_ITS ---
CLINICAL HISTORY: SOB Exam: AP portable chest x-ray. Comparison: Chest CT november 22, 2024. Findings: Lungs are well inflated. Cardiac silhouette is [id number] enlarged. Interstitial markings are diffusely prominent. Slight blunting of the costophrenic angles. Impression: Findings most characteristic of congestive heart failure This document has been electronically signed by: Mohan Sahu MD on 06/10/2025 12:16:19
--- NOTE | 2025-06-10 09:49 | ECG_ITS ---
Test Reason : SOB Blood Pressure : */* mmHG Vent. Rate : 141 BPM Atrial Rate : 141 BPM P-R Int : 120 ms QRS Dur : 108 ms QT Int : 322 ms P-R-T Axes : * -48 119 degrees QTcB Int : 493 ms Atrial flutter 2:1 block Left anterior fascicular block Minimal voltage criteria for LVH, may be normal variant ( [place] product ) Septal infarct , age undetermined Abnormal ECG When compared with ECG of 05-Nov-2022 06:28, Vent. rate has increased by 63 bpm Atrial flutter present Referred By: Generic ED Physician Electronically Signed By: Rodo Reagan
[2025-06-10 10:07] LABS: MANUAL DIFF FLAG NO
[2025-06-10 10:09] LABS: Hematocrit 39.3 % (42.0-52.0); Hemoglobin 13.1 g/dl (14.0-18.0); Imm Gran Abs Auto 0.02 X10*3/uL (0.00-0.03); Imm Gran Pct Auto 0.3 % (0.0-0.4); Lymphocytes Absolute Auto 1.1 X10*3/uL (1.2-4.9); Mean Corpuscular HGB Conc 33.3 g/dl (31.0-36.0); Mean Corpuscular Hemoglobin 32.3 pg (27.0-33.0); Mean Corpuscular Volume 97.0 fL (80.0-98.0); NRBC Abs Auto 0.000 X10*3/uL (0.0-0.012); NRBC Pct Auto 0.0 /100WBC (0.0-0.2); Platelet Count 167 X10*3/uL (160-400); Red Blood Count 4.05 X10*6/uL (4.60-5.80); White Blood Count 6.5 X10*3/uL (4.8-10.8)
[2025-06-10 10:13] LABS: Venous Blood Gas Refer to POC result
[2025-06-10 10:15] LABS: VBG HCO3 28 mmol/L (22-26); VBG O2 % Saturation 99.0 %
[2025-06-10 10:28] LABS: Alanine Aminotransferase 36 U/L (0-40); Albumin Level 4.0 g/dL (3.5-5.0); Alkaline Phosphatase 89 U/L (39-117); Anion Gap 12 (12-20); Aspartate Amino Transferase 25 U/L (5-37); Blood Urea Nitrogen 13 mg/dL (9-16); Calcium 8.5 mg/dL (8.4-10.2); Carbon Dioxide 26 mmol/L (22-29); Chloride 109 mmol/L (96-108); Creatinine Clr Calc Pharmacy 150.7; Estimated Glomerular Filt Rate > 60; Potassium 4.2 mmol/L (3.3-5.1); Sodium 143 mmol/L (135-145); Total Protein 6.6 g/dL (6.5-8.0)
--- NOTE | 2025-06-10 10:34 | ED_ITS ---
HPI - SOB/Dyspnea General Chief Complaint: Dyspnea Stated Complaint: diff breathing Time Seen by Provider: 06/10/25 10:08 Source: patient and family Mode of arrival: ambulatory Limitations: no limitations History of Present Illness ED Provider: Alyssia Lopez APRN HPI Narrative: This is a 55-year-old male who has a history of hypertension, hyperlipidemia, sleep apnea who presents the ER with complaints of upper respiratory symptoms for the last 10 days. Patient went to urgent care today and was found to be tachycardic and hypoxic and was referred into the emergency room. Patient does report some shortness of breath with activity. He denies productive cough, no fevers, no chills, no chest pain, palpitations. No leg swelling or leg pain. No recent travel, surgeries, hospitalizations or procedures. No history of DVT or PE. No recent sick contact. Patient smokes cigarettes daily. Patient drinks several beers 5 times weekly. Related Data Home Medications ?Medication ?Instructions ?Recorded ?Confirmed amlodipine 10 mg tablet 10 mg PO BEDTIME 06/10/25 lisinopril 40 mg tablet 40 mg PO BEDTIME 06/10/25 tirzepatide (weight loss) 10 10 mg subcut Q14D 5 06/10/25 mg/0.5 mL subcutaneous pen injector (Zepbound) Allergies Allergy/AdvReac Type Severity Reaction Status Date / Time No Known Allergies Allergy Verified 06/10/25 09:44 Review of Systems 2 Review of Systems: Yes all other systems are reviewed and are negative Constitutional: Constitutional: Reports no additional constitutional complaints, Denies body ache(s), Denies chills, Denies fever(s), Denies headache(s) and Denies weakness Eyes: Eyes: Reports no additional eye complaints and Denies change in vision ENT: Reports system reviewed and no additional complaints, except as documented, Denies dizziness, Denies headache(s), Denies nasal congestion, Denies nasal discharge and Denies neck pain Cardiovascular: Cardiovascular: Reports no additional cardiovascular complaints, Denies chest pain, Denies leg edema and Reports dyspnea Respiratory: Respiratory: Reports no additional respiratory complaints, Reports cough and Reports dyspnea Gastrointestinal: Gastrointestinal: Reports no additional gastrointestinal complaints, Denies abdominal pain, Denies diarrhea, Denies nausea and Denies vomiting Genitourinary: Genitourinary: Denies urinary incontinence Musculoskeletal: Musculoskeletal: Reports no additional musculoskeletal complaints, Denies back pain, Denies arthralgias, Denies joint swelling, Denies neck pain, Denies numbness and Denies tingling Integumentary/Breasts: Skin/Breast: Reports system reviewed and no additional complaints, except as docu and Denies rash Neurologic: Reports system reviewed and no additional complaints, except as documented, Denies Abnormal speech present, Denies dizziness, Denies headache(s), Denies numbness, Denies tingling and Denies weakness PMFSH Past Medical History Attestation statement: The following information was validated with the patient. Source: old records reviewed and nursing notes reviewed Medical History HTN (hypertension) HLD (hyperlipidemia) JONATHAN (obstructive sleep apnea) Morbid obesity Nicotine dependence, cigarettes, uncomplicated Lumbar spondylosis Erectile dysfunction Surgical History History of appendectomy History of carpal tunnel surgery History of colonoscopy Family History Family History Mother Lung cancer CAD (coronary artery disease) Father Lung cancer CAD (coronary artery disease) Brother CAD (coronary artery disease) Sister CAD (coronary artery disease) Social History Social History Housing: House Unable to assess alcohol history related to: Unknown Alcohol intake: current Alcohol intake frequency: 0-2 drinks per day Alcohol type: beer Patient Tobacco Use Status: Current everyday Tobacco user Tobacco use type: Cigarette Cigarette Packs Per Day: 0.25 Cigarettes Per Day: 4 Years Smoked: 43 , prior 42 yrs x 1 ppd e-Cigarette/Vaping Use: Never Used Second Hand Smoke Exposure: Yes Advance Directives: No Advance Directives Information Provided: No service: No Current occupational status: unemployed 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 Current occupational exposures/hazards: No Cognitive needs: No Hearing needs: No Vision needs: No Physical Exam 2 Vital Signs: Vital Signs: Last Vital Signs Temp 97.9 F 06/10/25 12:53 Pulse 140 H 06/10/25 12:53 Resp 23 H 06/10/25 12:53 BP 141/90 H 06/10/25 12:53 Pulse Ox 92 06/10/25 12:53 O2 Del Method Nasal Cannula 06/10/25 12:53 O2 Flow Rate 3 06/10/25 12:53 BMI result Body Mass Index 31.6 Const: General: cooperative, healthy appearing, comfortable and no acute distress Orientation/consciousness: patient oriented x3 Limitations: no limitations HEENT: Head: Yes normal to inspection Ears: hearing grossly normal bilaterally General nose exam: Normal external nose present Face and sinus: Yes normal facial exam Mouth: Normal oral and palatal mucosa present Throat: Yes posterior oropharynx normal Eyes: General: appearance normal, both eyes and all related structures P upils: Equal, round and reactive pupils present Neck: Neck: Yes normal visual inspection Chest: Chest palpation & inspection: normal inspection of the chest Resp: Other: Mild tachypnea Expiratory wheeze Cardio: Rate: regular rate and tachycardic Rhythm: regular rhythm P eripheral pulses: Peripheral pulses 2+ throughout GI: Inspection: Yes normal to inspection Palpation (GI): Soft to palpation and nontender Auscultation: normal bowel sounds Back/Spine/Pelvis: Thoracic/Lumbar Spine: thoracic and lumbar spine normal to inspection Skin: General skin exam: no rashes or lesions noted Neuro: General: patient oriented x3, no focal motor deficits and normal sensation to monofilament Cranial nerves: Yes Equal, round and reactive pupils present Cognition (Neuro): normal cognition Speech: No Abnormal speech present Gait exam (Neuro): Normal gait present Motor exam (neuro): 5/5 motor strength present throughout Extrem: General: Yes normal to inspection, Yes no calf tenderness and Yes normal gait Course Course Course Narrative: 1230-chest x-ray is consistent with congestive heart failure. Patient has elevated pro BNP. No history of congestive heart failure. I did order 40 mg of IV Lasix. He is still tachycardic and requiring supplemental oxygen. I will obtain a CTA of the chest to rule out PE as well. He will need admission Reevaluation(s) Reevaluation #1: 1300-CTA shows no PE. 1. No pulmonary emboli given the limitation of the patient motion. 2. Small bilateral pleural effusions with dense bilateral lower lobe consolidation most characteristic of pneumonia. 3. Increasing size of pulmonary nodules within the right upper lobe. This may be related to infectious, inflammatory, or neoplastic etiologies. Given that these are increased in size compared to the patient's prior study, follow up CT of the chest in 3 months suggested versus PET-CT. I tend to favor CHF with the patient's quite elevated BNP. However I will consider pneumonia. At this time infection is suspected. Antibiotics ordered. Call out to medicine for admission. Medications Administered Discontinued Medications Generic Name Dose Route Start Last Admin Trade Name Frecinthia PRN Reason Stop Dose Admin Furosemide 40 mg 06/10/25 12:23 06/10/25 12:38 Furosemide 40 Mg/4 Ml Vial IVPUSH 06/10/25 12:24 40 mg STAT STA Administration Protocol Sodium Chloride 1,000 mls @ 999 mls/hr 06/10/25 10:18 06/10/25 11:55 Ns IV 06/10/25 11:18 Infused .Q1H1M STA Infusion Iohexol 100 ml 06/10/25 11:50 06/10/25 11:50 Iohexol 350 Mg/Ml 100 Ml Infus..Btl IV 06/10/25 11:51 65 ml ONCE ONE Administration Levalbuterol HCl 2.5 mg 06/10/25 10:25 06/10/25 10:27 Levalbuterol Hcl 1.25 Mg/3 Ml Vial.Neb INHALE 06/10/25 10:26 2.5 mg ONCE ONE Administration Methylprednisolone Sodium Succinate 60 mg 06/10/25 10:18 06/10/25 10:41 Methylprednisolone Sod Succ 125 Mg/2 Ml Vial IVPUSH 06/10/25 10:19 60 mg ONCE ONE Administration Medical Decision Making Medical Decision Making [facility] Narrative: This is a 55-year-old male who has a history of hypertension, hyperlipidemia, sleep apnea who presents the ER with complaints of upper respiratory symptoms for the last 10 days. Patient went to urgent care today and was found to be tachycardic and hypoxic and was referred into the emergency room. Patient does report some shortness of breath with activity. He denies productive cough, no fevers, no chills, no chest pain, palpitations. No leg swelling or leg pain. No recent travel, surgeries, hospitalizations or procedures. No history of DVT or PE. No recent sick contact. Patient smokes cigarettes daily. Patient drinks several beers 5 times weekly. On arrival patient has some mild tachypnea with expiratory wheezing on exam. He is tachycardic with a heart rate of 140s. His blood pressure is stable. His room air saturation is 89%. This was improved on 2 L of nasal cannula. Will obtain labs, chest x-ray, EKG, viral testing Patient will receive bronchodilators, IV Solu-Medrol, IV fluid Differential Diagnosis Differential Diagnoses: The differential diagnosis associated with the presentation includes COPD, ACS, arrthymia, PE, CHF Admission/Observation Consideration of admission/observation: Escalation of care including admission/observation considered CHF with pneumonia with hypoxia requiring supplemental oxygen which will need further management inpatient Consult Healthcare Provider Management of the patient was discussed with: Hospitalist Rachael GAYTAN at 1315 Lab Data MDM Lab Attestation statement: I reviewed the patient's lab results. 06/10/25 10:00 06/10/25 10:00 Labs: Lab Results 06/10/25 06/10/25 06/10/25 Range/Units 10:00 10:09 10:19 WBC 6.5 (4.8-10.8) X10*3/uL RBC 4.05 L (4.60-5.80) X10*6/uL Hgb 13.1 L (14.0-18.0) g/dl Hct 39.3 L (42.0-52.0) % MCV 97.0 (80.0-98.0) fL MCH 32.3 (27.0-33.0) pg MCHC 33.3 (31.0-36.0) g/dl RDW 13.6 (11.0-16.0) % Plt Count 167 (160-400) X10*3/uL MPV 9.7 (9.4-12.4) fL Immature Gran % (Auto) 0.3 (0.0-0.4) % Neut % (Auto) 74.0 H (45-73) % Lymph % (Auto) 16.9 L (20-40) % [place] % (Auto) 6.7 (2-11) % Eos % (Auto) 1.5 (0-4) % Baso % (Auto) 0.6 (0-2) % Lymph # (Auto) 1.1 L (1.2-4.9) X10*3/uL [place] # (Auto) 0.4 (0.1-1.2) X10*3/uL Eos # (Auto) 0.1 (0.0-0.4) X10*3/uL Baso # (Auto) 0.0 (0.0-0.2) X10*3/uL Abs Immat Gran (auto) 0.02 (0.00-0.03) X10*3/uL Absolute Neuts (auto) 4.8 (2.0-8.3) x10*3/uL Absolute Nucleated RBC 0.000 (0.0-0.012) X10*3/uL Nucleated RBC % (auto) 0.0 (0.0-0.2) /100WBC PT 14.1 H (10.9-12.4) SEC INR 1.2 H (0.9-1.1) Hold Blue Top VBG pH 7.44 H (7.32-7.43) VBG pCO2 42 mmHg VBG pO2 105 mmHg VBG HCO3 28 H (22-26) mmol/L VBG O2 Saturation 99.0 % VBG Base Excess 4.3 mmol/L Sodium 143 (135-145) mmol/L Potassium 4.2 (3.3-5.1) mmol/L Chloride 109 H (96-108) mmol/L Carbon Dioxide 26 (22-29) mmol/L Anion Gap 12 (12-20) BUN 13 (9-16) mg/dL Creatinine 0.64 (0.5-1.4) mg/dL Estim Creat Clear Calc 150.7 Estimated GFR > 60 Random Glucose 98 (60-115) mg/dL Lactic Acid (0.5-2.0) mmol/L Calcium 8.5 D (8.4-10.2) mg/dL Total Bilirubin 0.7 (0.0-1.0) mg/dL AST 25 (5-37) U/L ALT 36 (0-40) U/L Alkaline Phosphatase 89 (39-117) U/L Troponin I High Sens 20.5 (<3.5-35.0) ng/L NT-Pro-B Natriuret Pep 1725.6 H (<300) pg/mL Total Protein 6.6 (6.5-8.0) g/dL Albumin 4.0 (3.5-5.0) g/dL COVID-19 (CHEY) (Negative) COVID-19 Clin [facility] Influenza Type A (KATY) (Negative) Influenza Type B (KATY) (Negative) Influenza A & B Note 06/10/25 06/10/25 06/10/25 Range/Units 10:44 10:45 11:45 WBC (4.8-10.8) X10*3/uL RBC (4.60-5.80) X10*6/uL Hgb (14.0-18.0) g/dl Hct (42.0-52.0) % MCV (80.0-98.0) fL MCH (27.0-33.0) pg MCHC (31.0-36.0) g/dl RDW (11.0-16.0) % Plt Count (160-400) X10*3/uL MPV (9.4-12.4) fL Immature Gran % (Auto) (0.0-0.4) % Neut % (Auto) (45-73) % Lymph % (Auto) (20-40) % [place] % (Auto) (2-11) % Eos % (Auto) (0-4) % Baso % (Auto) (0-2) % Lymph # (Auto) (1.2-4.9) X10*3/uL [place] # (Auto) (0.1-1.2) X10*3/uL Eos # (Auto) (0.0-0.4) X10*3/uL Baso # (Auto) (0.0-0.2) X10*3/uL Abs Immat Gran (auto) (0.00-0.03) X10*3/uL Absolute Neuts (auto) (2.0-8.3) x10*3/uL Absolute Nucleated RBC (0.0-0.012) X10*3/uL Nucleated RBC % (auto) (0.0-0.2) /100WBC PT (10.9-12.4) SEC INR (0.9-1.1) Hold Blue Top SEE NOTE VBG pH (7.32-7.43) VBG pCO2 mmHg VBG pO2 mmHg VBG HCO3 (22-26) mmol/L VBG O2 Saturation % VBG Base Excess mmol/L Sodium (135-145) mmol/L Potassium (3.3-5.1) mmol/L Chloride (96-108) mmol/L Carbon Dioxide (22-29) mmol/L Anion Gap (12-20) BUN (9-16) mg/dL Creatinine (0.5-1.4) mg/dL Estim Creat Clear Calc Estimated GFR Random Glucose (60-115) mg/dL Lactic Acid 0.7 (0.5-2.0) mmol/L Calcium (8.4-10.2) mg/dL Total Bilirubin (0.0-1.0) mg/dL AST (5-37) U/L ALT (0-40) U/L Alkaline Phosphatase (39-117) U/L Troponin I High Sens (<3.5-35.0) ng/L NT-Pro-B Natriuret Pep (<300) pg/mL Total Protein (6.5-8.0) g/dL Albumin (3.5-5.0) g/dL COVID-19 (CHEY) Invalid Negative (Negative) COVID-19 Clin Com See Note See Note Influenza Type A (KATY) Negative (Negative) Influenza Type B (KATY) Negative (Negative) Influenza A & B Note See Note Independent Interpretation I performed an independent interpretation of an: EKG, Plain X-Ray and CT Scan Interpretation: I independently reviewed the EKG which shows sinus tachycardia with a rate of 141 I independently viewed the x-ray/Ct chest and agree with the radiology report Radiology Impression Discussion of test interpretation with radiology: I have reviewed the radiologist's reading. Radiologist Impression: [place] [id number] XRay Report Signed Patient: Joe Esquivel MR#: [id number] : 1970 Acct:[id number] Age/Sex: 55 / M ADM Date: 06/10/25 Loc: HO.ED Attending Dr: Ordering Physician: Ganga Ernandez MD Date of Service: 06/10/25 Procedure(s): XR chest 1V Accession Number(s): [id number] cc: Juwan Gupta PA-C; Ganga Ernandez MD~ Reason for Exam: SOB CLINICAL HISTORY: SOB Exam: AP portable chest x-ray. Comparison: Chest CT november 22, 2024. Findings: Lungs are well inflated. Cardiac silhouette is [id number] enlarged. Interstitial markings are diffusely prominent. Slight blunting of the costophrenic angles. Impression: Findings most characteristic of congestive heart failure [address] [address] [address] Scan Report Signed Patient: Joe Esquivel MR#: [id number] : 1970 Acct:[id number] Age/Sex: 55 / M ADM Date: 06/10/25 Loc: HO.ED Attending Dr: Ordering Physician: Alyssia Lpoez NP Date of Service: 06/10/25 Procedure(s): CT angio chest PE protocol Accession Number(s): [id number] cc: Juwan Gupta PA-C; Alyssia Lopez NP~ Report Number: [id number]: Total DLP = 611.00 mGy-cm Reason for Exam: hypoxia,tachypnea, tachycardia, r/o pe CLINICAL HISTORY: hypoxia,tachypnea, tachycardia, r o pe CT angiography chest with contrast. MIP postprocessing. Comparison: CR - XR CHEST 1V - 06/10/25 11:[address]/SR - CT LUNG SCREENING - 11/22/24 16:29 EDT Findings: Images degraded by patient motion. This limits evaluation of the pulmonary arteries, especially the smaller segmental and subsegmental pulmonary arteries. Given limitation, no pulmonary emboli identified. Thoracic aorta is nonaneurysmal. Mild denny chamber cardiac enlargement with hypertrophy of the left ventricular wall and interventricular septum. Mildly prominent lymph nodes within the mediastinum and hilum measure up to 14 mm in short axis. Small bilateral pleural effusions. Dense areas of consolidation within the lower lobes bilaterally. Increasing size of pulmonary nodules within the right upper lobe measuring 8 mm in size. These previously measured 4-5 mm in size. No pneumothorax. Induration seen throughout the subcutaneous fat of the lower chest anteriorly. No free fluid or free air within the upper abdomen. Degenerative change throughout the thoracolumbar spine without acute bony abnormality. IMPRESSION: 1. No pulmonary emboli given the limitation of the patient motion. 2. Small bilateral pleural effusions with dense bilateral lower lobe consolidation most characteristic of pneumonia. 3. Increasing size of pulmonary nodules within the right upper lobe. This may be related to infectious, inflammatory, or neoplastic etiologies. Given that these are increased in size compared to the patient's prior study, follow up CT of the chest in 3 months suggested versus PET-CT. Critical Care Time Critical Care Time Critical Care Time: Yes Total Critical Care Time: 60 Attestation: Time includes: direct patient care, patient reassessment, coordination of patient care, interpretation of data (laboratory data, pulse oximetry, and chest xrays), review of patient's medical records, medical consultation and documentation of patient care. Discharge Plan Discharge Clinical Impression: Pneumonia, CHF (congestive heart failure), Hypoxia Patient Disposition: Admitted As Inpatient
[2025-06-10 10:41] LABS: Troponin-I High Sensitivity 20.5 ng/L (<3.5-35.0)
--- NOTE | 2025-06-10 10:43 | PC.NURSE ---
Pt to ED 22 from triage, upon arrival pt reports SOB and respiratory rate 20-25. 90% pulse ox reading on room air, 2L O2 applied via NC and pulse ox reading 94%. Pt placed on bedisde monitor, HR 140's. Pt is alert and able to speak in full complete sentences. 18G to LAC, labs collected/sent. EKG obtained. IVF and meds per NOV.
[2025-06-10 10:52] LABS: NT Pro B Type Natriuretic Pept 1725.6 pg/mL (<300)
[2025-06-10 10:59] LABS: INTERNATIONAL NORM RATIO 1.2 (0.9-1.1); Prothrombin Time 14.1 SEC (10.9-12.4)
[2025-06-10 11:14] LABS: IDNOW Serial# 08D9AD1C; Influenza B2 Negative (Negative)
[2025-06-10 11:26] LABS: COVID-19 Test Invalid (Negative); IDNOW Serial# 6674DD1D
[2025-06-10] MEDS: iohexoL 350 MG/ML 100 ML INFUS..BTL IV (11:50)
[2025-06-10 12:11] LABS: COVID-19 Test Negative (Negative); IDNOW Serial# 08D9AD1C
[2025-06-10] MEDS: Furosemide 40 MG/4 ML VIAL IVPUSH ×2 (12:38→16:00)
--- NOTE | 2025-06-10 13:46 | PM.IMHP ---
History of Present Illness Date of Service: 06/10/25 Chief Complaint: Shortness of breath 55 year old man presenting to the ED with worsening shortness of breath. He reported that he has felt unwell for at least a week He reported a cough with no fever, chills, nausea, vomiting, diarrhea, recent travel, sick contacts. He went to urgent care today and was sent to the ED for further management. Chest CTA in the ED showed Pulmonary embolus, but did show small bilateral pleural effusions with dense bilateral lower lobe consolidation. Also noted was increasing size of pulmonary nodules within the right upper lobe. His BMP was also noted to be elevated at 1725.6. In the ER he was given 1 L of IV fluid, Solu-Medrol, Xopenex, Lasix, Rocephin, azithromycin. He will be admitted for further management and treatment of acute on chronic COPD exacerbation and pneumonia Review of Systems Review of Systems: Denies any recent fever chills or decrease in appetite respiratory see HPI cardiovascular see HPI gastrointestinal denies any dysphagia abdominal pain nausea vomiting or diarrhea genitourinary denies any dysuria frequency or hematuria musculoskeletal denies any joint pain or swelling neuropsych denies any weakness or seizures all other systems reviewed are negative [facility] Medical History HTN (hypertension) HLD (hyperlipidemia) JONATHAN (obstructive sleep apnea) Morbid obesity Nicotine dependence, cigarettes, uncomplicated Lumbar spondylosis Erectile dysfunction Family History Mother Lung cancer CAD (coronary artery disease) Father Lung cancer CAD (coronary artery disease) Brother CAD (coronary artery disease) Sister CAD (coronary artery disease) Surgical History History of appendectomy History of carpal tunnel surgery History of colonoscopy Social History Housing: House Unable to assess alcohol history related to: Unknown Alcohol intake: current Alcohol intake frequency: 0-2 drinks per day Alcohol type: beer Patient Tobacco Use Status: Current everyday Tobacco user Tobacco use type: Cigarette Cigarette Packs Per Day: 0.25 Cigarettes Per Day: 4 Years Smoked: 43 , prior 42 yrs x 1 ppd e-Cigarette/Vaping Use: Never Used Second Hand Smoke Exposure: Yes Advance Directives: No Advance Directives Information Provided: No service: No Current occupational status: unemployed Current occupation: [employer] Current occupational exposures/hazards: No Cognitive needs: No Hearing needs: No Vision needs: No Meds Allergies Allergy/AdvReac Type Severity Reaction Status Date / Time No Known Allergies Allergy Verified 06/10/25 09:44 Active Medications: Current Medications Furosemide (Furosemide 40 Mg/4 Ml Vial) 40 mg IVPUSH BIDWM PABLO; Protocol Azithromycin 500 mg/ Sodium (Chloride) 250 mls @ 125 mls/hr IV ONCE ONE Stop: 06/10/25 15:03 Sodium Chloride (0.9 % Sodium Chloride Flush 10 Ml Syringe) 5 ml IVFLUSH QSHIFT [facility] Home Medications ?Medication ?Instructions ?Recorded ?Confirmed ?Last Taken ?Type amlodipine 10 mg tablet 10 mg PO BEDTIME 06/10/25 06/10/25 06/09/25 History lisinopril 40 mg tablet 40 mg PO BEDTIME 06/10/25 06/10/25 Unknown History tirzepatide (weight loss) 10 10 mg subcut Q14D 06/10/25 06/10/25 06/03/25 History mg/0.5 mL subcutaneous pen injector (Zepbound) Physical Exam Vital Signs and Narrative: Vital Signs: Last Vital Signs Temp 97.9 F 06/10/25 12:53 Pulse 140 H 06/10/25 12:53 Resp 23 H 06/10/25 12:53 BP 141/90 H 06/10/25 12:53 Pulse Ox 92 06/10/25 12:53 O2 Del Method Nasal Cannula 06/10/25 12:53 O2 Flow Rate 3 06/10/25 12:53 BMI result Body Mass Index 31.6 Appearing in no acute distress head is normocephalic atraumatic eyes pupils are PERRLA sclera is anicteric mouth throat mucous membranes are intact and moist neck is supple no lymphadenopathy, no JVD noted lung sounds rales heart regular rate rhythm, clear S1, S2 positive bowel sounds, abdomen is soft, nontender neuro patient is alert x3, no focal deficits Results Labs 06/10/25 10:00 06/10/25 10:00 Labs: Laboratory Results - last 24 hr 06/10/25 06/10/25 06/10/25 10:00 10:09 10:19 MCV 97.0 MCH 32.3 MCHC 33.3 RDW 13.6 Plt Count 167 MPV 9.7 Immature Gran % (Auto) 0.3 Neut % (Auto) 74.0 H Lymph % (Auto) 16.9 L [place] % (Auto) 6.7 Eos % (Auto) 1.5 Baso % (Auto) 0.6 Lymph # (Auto) 1.1 L [place] # (Auto) 0.4 Eos # (Auto) 0.1 Baso # (Auto) 0.0 Abs Immat Gran (auto) 0.02 Absolute Neuts (auto) 4.8 Absolute Nucleated RBC 0.000 Nucleated RBC % (auto) 0.0 PT 14.1 H INR 1.2 H Hold Blue Top VBG pH 7.44 H VBG pCO2 42 VBG pO2 105 VBG HCO3 28 H VBG O2 Saturation 99.0 VBG Base Excess 4.3 Anion Gap 12 Estim Creat Clear Calc 150.7 Estimated GFR > 60 Random Glucose 98 Lactic Acid Calcium 8.5 D Total Bilirubin 0.7 AST 25 ALT 36 Alkaline Phosphatase 89 Troponin I High Sens 20.5 NT-Pro-B Natriuret Pep 1725.6 H Total Protein 6.6 Albumin 4.0 COVID-19 (CHEY) COVID-19 Clin Com Influenza Type A (KATY) Influenza Type B (KATY) Influenza A & B Note 06/10/25 06/10/25 06/10/25 10:44 10:45 11:45 MCV MCH MCHC RDW Plt Count MPV Immature Gran % (Auto) Neut % (Auto) Lymph % (Auto) [place] % (Auto) Eos % (Auto) Baso % (Auto) Lymph # (Auto) [place] # (Auto) Eos # (Auto) Baso # (Auto) Abs Immat Gran (auto) Absolute Neuts (auto) Absolute Nucleated RBC Nucleated RBC % (auto) PT INR Hold Blue Top SEE NOTE VBG pH VBG pCO2 VBG pO2 VBG HCO3 VBG O2 Saturation VBG Base Excess Anion Gap Estim Creat Clear Calc Estimated GFR Random Glucose Lactic Acid 0.7 Calcium Total Bilirubin AST ALT Alkaline Phosphatase Troponin I High Sens NT-Pro-B Natriuret Pep Total Protein Albumin COVID-19 (CHEY) Invalid Negative COVID-19 Clin Com See Note See Note Influenza Type A (KATY) Negative Influenza Type B (KATY) Negative Influenza A & B Note See Note Assessment and Plan (1) CHF (congestive heart failure): Status: Acute (2) Pneumonia: Status: Acute Plan 55 year old man admitted for acute CHF and pneumonia with noted tachycardia Acute on chronic HFpEF exacerbation bnp 1725.6 Monitor on Telemetry IV lasix 40 mg BID Daily weights strict intake and output cardiology consultation echo Sepsis secondary to Pneumonia Tachycardia, tachypnea, normal lactic acid Dense consolidations noted on CTA Start Rocephin and azithromycin Continue supplemental oxygen to keep oxygen saturation greater than 90% Sinus tachycardia CTA neg for PE, small bilateral pleural effusions with dense bilateral lower lobe Hypertension continue amlodipine and lisinopril Pulmonary nodules noted on chest CT Pulmonology consultation inpatient versus outpatient Alcohol use Reports that he drinks 4 to 5 times a week, vodka and beer, 4 drinks of vodka in 4-[address] on CIWA Try Valium for tachycardia as this could also be some degree of withdrawal Tobacco use NRT DVT prophylaxis with lovenox full code Quality Stroke Does the patient have a stroke diagnosis?: No VTE Prior VTE?: No VTE Risk Level:: Medical - moderate - high VTE Device Contraindication: Treatment Not Indicated VTE Drug Contraindication: N/A - Med Ordered
--- NOTE | 2025-06-10 13:52 | PHA.MEDREC ---
Addendum entered by Giselle Rush RPh 06/10/25 14:02: Reviewed by [facility]. Pt no longer takes Lipitor. Original Note: Pharmacy Consult ? Medication Reconciliation Pharmacy has completed the medication reconciliation. Confirmed medication list with patient. Patient takes daily meds at bedtime. Patient takes zepbound subcut once every two weeks. Patient took last zepbound dose last thursday (06/03). Patient last took daily medications yesterday.
--- NOTE | 2025-06-10 14:17 | HO.NURTONUR ---
Joe is a pleasant 55 yo male, with NKA who came to ED from urgent care where he was noted to have O2 sat in the 80's on room air and tachycardia with HR 140's. On arrival to ED pt placed on 2L O2 via NC to maintain saturation > 90%, also noted to be tachycardic on monitor, EKG showed sinus tach. PMH- HTN, HDL, JONATHAN, and smoker CXR showed CHF Chest CT: Small bilateral pleural effusions with dense bilateral lower lobe consolidation most characteristic of pneumonia. Increasing size of pulmonary nodules within the right upper lobe. Pt is A/O x 3, ambulates without difficulty. 18G placed to L AC, 1L IVF given, IV lasix and abx given. Given nebulizer tx by respiratory. Voiding CYU in urinal. No N/V, tolerating low Na+ diet.
[2025-06-10] MEDS: 0.9 % Sodium Chloride Flush 10 ML SYRINGE 5 ML IVFLUSH (15:24)
[2025-06-10] MEDS: diazePAM 10 MG/2 ML CARTRIDGE 5 MG IVPUSH ×2 (16:00→16:24)
--- NOTE | 2025-06-10 19:02 | PC.NURSE ---
Pt requesting to leave AMA, states he wants to monitor himself at home and does not need to be hospitalized. Encouraged pt to stay and receive treatment, MD Steinberg notified. Pt left AMA, form completed and IV removed.
== END 2025-06-10 20:00 | disposition left against medical advice (07) | DRG 720 ==
LOC: HO.ED 13:10 → HO.EDOVER 13:28
PROVIDERS: Nurse Practitioner Family; Admitting Provider Nurse Practitioner Acute Care; Emergency Provider Emergency Medicine Emergency Medical Services; PCP Physician Assistant; Visit Provider Hospitalist
DX: A41.9 Sepsis, unspecified organism (principal); I50.33 Acute on chronic diastolic (congestive) heart failure; J18.9 Pneumonia, unspecified organism; J44.0 Chronic obstructive pulmonary disease with (acute) lower respiratory infection; J44.1 Chronic obstructive pulmonary disease with (acute) exacerbation; F17.210 Nicotine dependence, cigarettes, uncomplicated; F10.90 Alcohol use, unspecified, uncomplicated; Z20.822 Contact with and (suspected) exposure to COVID-19; Z71.6 Tobacco abuse counseling; Z79.899 Other long term (current) drug therapy
CPT/HCPCS: 36415; 71045; 71275; 80053; 82803; 83605; 83880; 84484; 85025; 85610; 87040; 87502; 87635; 93005; 94640; 99212; 99285; J0456; J0616; J0696; J1650; J1938; J2919; J3360; J7120; Q9967

== ENCOUNTER → 2025-06-10 09:49 | Outpatient (BNV) | payer OTHER, SELFPAY | PROVIDERS: Admitting Provider Nurse Practitioner Acute Care; Emergency Provider Emergency Medicine Emergency Medical Services; PCP Physician Assistant; Visit Provider Internal Medicine Cardiovascular Disease | DX: I48.92 Unspecified atrial flutter (principal); I44.1 Atrioventricular block, second degree; I44.4 Left anterior fascicular block | CPT/HCPCS: 93010 ==

== ENCOUNTER → 2025-06-10 09:50 | Outpatient (BNV) | payer OTHER, SELFPAY | PROVIDERS: Emergency Provider Emergency Medicine Emergency Medical Services; PCP Physician Assistant; Visit Provider Radiology Diagnostic Radiology | DX: J90 Pleural effusion, not elsewhere classified (principal); R91.8 Other nonspecific abnormal finding of lung field; R06.02 Shortness of breath | CPT/HCPCS: 71045; 71275 ==

== ENCOUNTER → 2025-06-10 13:18 | Outpatient (BNV) | payer OTHER, SELFPAY | PROVIDERS: Admitting Provider Nurse Practitioner Acute Care; Emergency Provider Emergency Medicine Emergency Medical Services; PCP Physician Assistant; Visit Provider Nurse Practitioner Acute Care | DX: I50.9 Heart failure, unspecified (principal); J18.9 Pneumonia, unspecified organism | CPT/HCPCS: 99223 ==

== ENCOUNTER 2025-06-30 07:58 | Outpatient (AMB) | payer OTHER, SELFPAY ==
[2025-06-30 08:00] VITALS: BP 138/92; PULSE 81; O2SAT 94; BMI 41.7
--- NOTE | 2025-06-30 08:00 | MHC.PC.OV ---
Vital Signs 06/30/25 08:00 Height 5 ft 10 in Weight 291 lb BMI 41.7 BP 138/92 H Blood Pressure Location Lt brachial Position Sitting Pulse 81 Pulse Source Pulse Oximeter Pulse Oximetry (%) 94 Oxygen Delivery Method Room Air Intake Visit Reasons: [facility] 06/16 Allergies No Known Allergies Allergy (Verified 06/30/25 08:00) Medication List - Last Reconciled 06/30/25 by Deepa Tidwell NP amiodarone orally daily; 400 mg BID for 7 days. Then 400 mg daily for 7 days. Then 200 mg once daily. amlodipine 10 mg PO BEDTIME apixaban (Eliquis) 5 mg PO BID furosemide (Lasix) 20 mg PO DAILY lisinopril 40 mg PO BEDTIME tirzepatide (weight loss) (Zepbound) 10 mg subcut Q14D Tobacco use date assessed: 02/22/25 Dental Screening Dental Screen Date: 02/22/25 HPI HPI Comments History of Present Illness Details 55 y/o Male patient who presents to the clinic today for HDF. Pt has Medical history significant for HTN, HDL, Obesity, and Current everyday smoker. Pt was admitted at [facility] on 06/12 - 06/16 for an evaluation of Hypoxia on exertion. He was admitted for management of new onset CHF, A-flutter/Afib and acute hypoxic Respiratory Failure. He was Cardioverted in the hospital and started on Metoprolol. Cardiology in the Hospital recommended Ablation as outpatient and started him on Amiodarone. He has a F/U appointment with [facility] Cardiology scheduled for next week. 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 [facility] Medical History (Updated 06/30/25 @ 09:10 by Deepa Tidwell NP) A-fib HTN (hypertension) HLD (hyperlipidemia) JONATHAN (obstructive sleep apnea) Morbid obesity Nicotine dependence, cigarettes, uncomplicated Lumbar spondylosis Erectile dysfunction Surgical History History of appendectomy History of carpal tunnel surgery History of colonoscopy Family History Mother Lung cancer CAD (coronary artery disease) Father Lung cancer CAD (coronary artery disease) Brother CAD (coronary artery disease) Sister CAD (coronary artery disease) Social History Housing: House Alcohol intake: current Alcohol intake frequency: 0-2 drinks per day Alcohol type: beer Patient Tobacco Use Status: Current everyday Tobacco user Tobacco use type: Cigarette Cigarette Packs Per Day: 0.25 Cigarettes Per Day: 4 Years Smoked: 41 , prior 42 yrs x 1 ppd e-Cigarette/Vaping Use: Never Used Second Hand Smoke Exposure: Yes service: No Current occupational status: unemployed 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 Current occupational exposures/hazards: No Cognitive needs: No Hearing needs: No Vision needs: No Questionnaire Thrive Questionnaire Date Thrive assessed: 02/16/25 I am a: Patient What is your living situation today?: I have a steady place to live Within the past 12 months, did the food you bought not last and you didn't have the money to get more?: Never true Within the past 12 months, did you worry whether your food would run out before you got money to buy more?: Never true Do you have trouble paying for medicines?: No Do you have trouble getting transportation to medical appointments?: No Do you have trouble paying your heating and electricity bill?: No Do you have trouble taking care of your child, family member or friend?: No Do you have trouble with day-to-day activities such as bathing, preparing meals, shopping, managing finances, etc.?: No Are you currently unemployed and looking for a job?: No Are you interested in more education?: No Currently or been in a relationship where the following occur: No concerns reported THRIVE Score: 0 LASHON-7 AMB Questionnaire LASHON-7 Date LASHON - 7 assessed: 02/22/25 Source: Developed by Drs. Marcio Loomis, Georgina Alcantara, Camden Camacho and colleagues, with an educational dontrell from [employer]. Review of Systems Const All systems reviewed & are unremarkable except as noted in HPI and below Physical exam (Primary Care) Vital Signs: Last Vital Signs Pulse 81 06/30/25 08:00 BP 138/92 H 06/30/25 08:00 Pulse Ox 94 06/30/25 08:00 Oxygen Delivery Method Room Air 06/30/25 08:00 BMI result Body Mass Index 41.7 Tobacco/Smoking Status: Tobacco use Status Tobacco use date assessed 02/22/25 06/30/25 08:04 Patient Tobacco Use Status Current everyday Tobacco 06/30/25 08:04 Tobacco use type Cigarette 06/30/25 08:04 e-Cigarette/Vaping Use Never Used 06/30/25 08:04 Thrive Assessment: Date of Thrive Assessment Date Thrive assessed 02/16/25 06/30/25 08:04 Currently or been in a relationship where the following occur: No concerns reported Const General: no acute distress Nutritional Appearance: obese morbidly obese Orientation/consciousness: patient oriented x3 Resp Effort & Inspection: normal respiratory effort Auscultation: clear to auscultation bilaterally Cardio Rhythm: abnormal rhythm regularly irregular Heart sounds: S1 normal heart sound present and S2 normal heart sound present Neuro General: patient oriented x3, gait normal and moves all extremities Psych Speech and movement: Normal speech and movement present Coding Level of Care Code Est Pt Level 4 (16313) Diagnoses Acute on chronic congestive heart failure, unspecified heart failure type I50.9 Heart failure type: unspecified Heart failure chronicity: acute on chronic Paroxysmal atrial fibrillation I48.0 Atrial fibrillation type: paroxysmal Hypoxia R09.02 Essential hypertension I10 Hypertension type: essential hypertension Time Spent (min) 20 Assessment & Plan Assessment & Plan (1) CHF (congestive heart failure): Code(s): I50.9 - Heart failure, unspecified Category: Medical Qualifiers: Heart failure type: unspecified Heart failure chronicity: acute on chronic Qualified Code(s): I50.9 - Heart failure, unspecified Plan: Managed by Cardiology. Contine on Lasix as prescribed. (2) A-fib: Code(s): I48.91 - Unspecified atrial fibrillation Category: Medical Qualifiers: Atrial fibrillation type: paroxysmal Qualified Code(s): I48.0 - Paroxysmal atrial fibrillation Plan: Managed by Cardiology Continue on Eliquis and Amiodarone as prescribed. (3) Hypoxia: Code(s): R09.02 - Hypoxemia Category: Medical Plan: Placed referral to Pulmonology for COPD work-up. Smoke cessation was encouraged. (4) HTN (hypertension): Code(s): I10 - Essential (primary) hypertension Category: Medical Qualifiers: Hypertension type: essential hypertension Qualified Code(s): I10 - Essential (primary) hypertension Plan: Continue on Lisinopril and Amlodipine as prescribed. F/U with Cardiology. Orders: Referrals Pulmonology Referral F17.210 - Nicotine dependence, cigarettes, uncomplicated, R09.02 - Hypoxemia
--- OUTSIDE RECORDS SUMMARY | 2025-06-30 08:02 | XMS_ITS | Patient Health Record ---
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 Name Role Phone Juwan Gupta Primary Care Provider Unavailab Marcio Mckeon Unavailable [phone] Reason For Referral No Information Medications Medication SIG (Take, Route, Frequency, Duration) Notes Start Date End Date Status Lisinopril 40 MG 1 tablet Orally Once a day; Duration: 30 day(s) Active Norvasc 10 MG 1 tablet Orally Once a day; Duration: 30 day(s) Active oxyCODONE HCl 5 MG [...] Problem Status W/U Status Risk Notes Problem Screening for malignant neoplasm of colon (121923162) Encounter for screening for malignant neoplasm of colon (Z12.11) Active confirmed Problem Preprocedural examination (175887717575895) Preprocedural examination (Z01.818) Active confirmed Plan Of Treatment Future Test Test Name Order Date COLONOSCOPY 09/22/2018 Insurance Providers Payer Name Payer Address Payer Phone Subscriber Number Group Number Insured Name Patient Relationship to Insured Coverage Start Date Coverage End Date [employer] [employer] [facility] [employer] CLAIMS [address] [place] [address] [id number] Self - patient is the insured Medical (General) History Medical History History ICD Code Hypertension Denies ND,DM,CVA,Lung disease,renal dise ase Surgical History Surgery Date(Month/Year) Carpal tunnel release-both Appendectomy
== END 2025-06-30 08:37 | disposition home or self-care (01) ==
LOC: HO.HMCH 07:58
PROVIDERS: PCP Physician Assistant; Visit Provider Nurse Practitioner Family
DX: I50.9 Heart failure, unspecified (principal); I48.0 Paroxysmal atrial fibrillation; R09.02 Hypoxemia; I10 Essential (primary) hypertension

== ENCOUNTER → 2025-06-30 07:58 | Outpatient (BNVA) | payer OTHER, SELFPAY | PROVIDERS: PCP Physician Assistant; Visit Provider Nurse Practitioner Family | DX: I48.0 Paroxysmal atrial fibrillation (principal); R09.02 Hypoxemia; I11.0 Hypertensive heart disease with heart failure; I50.9 Heart failure, unspecified; F17.210 Nicotine dependence, cigarettes, uncomplicated; Z79.899 Other long term (current) drug therapy | CPT/HCPCS: 99212 ==

== ENCOUNTER 2025-07-03 06:00 | Outpatient (REF) | payer OTHER, SELFPAY ==
--- NOTE | ~2025-07-03 | XR_ITS ---
EXAMINATION: XR KNEE, LEFT CLINICAL INFORMATION: W19.XXXA - Unspecified fall, initial encounter COMPARISON: None available. TECHNIQUE: Three views of the left knee. FINDINGS: No fracture. Small effusion. Alignment is anatomic. Joint spaces are maintained. No abnormal soft tissue calcification. XR/XR knee LT 3V IMPRESSION: No evidence of acute fracture. Small effusion. Electronically signed by: Alfie Suárez MD 07/03/2025 07:33 AM EDT
--- OUTSIDE RECORDS SUMMARY | 2025-07-03 06:04 | XMS_ITS | Patient Health Record ---
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 Name Role Phone Juwan Gupta Primary Care Provider Unavailab Marcio Mckeon Unavailable [phone] Reason For Referral No Information Medications Medication [...] Problem Screening for malignant neoplasm of colon (434214499) Encounter for screening for malignant neoplasm of colon (Z12.11) Active confirmed Problem Preprocedural examination ([id number]) Preprocedural examination (Z01.818) Active confirmed Plan Of Treatment Future Test Test Name Order Date COLONOSCOPY 09/22/2018 Insurance Providers Payer Name Payer Address Payer Phone Subscriber Number Group Number Insured Name Patient Relationship to Insured Coverage Start Date Coverage End Date [facility] [employer] CLAIMS [address] [place] [address] [id number] Self - patient is the insured Medical (General) History Medical History History ICD Code Hypertension Denies LA,DM,CVA,Lung disease,renal dise ase Surgical History Surgery Date(Month/Year) Carpal tunnel release-both Appendectomy
== END 2025-07-03 06:01 | disposition home or self-care (01) ==
LOC: HO.XRAY 06:00
PROVIDERS: PCP Physician Assistant; Visit Provider Student in an Organized Health Care Education/Training Program
DX: M25.562 Pain in left knee (principal); W19.XXXD Unspecified fall, subsequent encounter
CPT/HCPCS: 73562

== ENCOUNTER 2025-07-11 09:05 | Outpatient (AMB) | payer OTHER, SELFPAY ==
[2025-07-11 09:10] VITALS: BP 138/80; PULSE 70; BMI 41.2
--- NOTE | 2025-07-11 09:10 | MHC.OFFVIS ---
Vital Signs 07/11/25 09:10 Height 5 ft 10 in Weight 287 lb 0.67 oz BMI 41.2 BP 138/80 Blood Pressure Location Rt brachial Position Sitting Pulse 70 Pulse Source Monitor Intake Visit Reasons: ER visit Healthcare Applications Analyst Required: No Allergies No Known Allergies Allergy (Verified 07/11/25 09:13) Medication List - Last Reconciled 07/11/25 by ANNAMARIE Craig amiodarone orally daily; 400 mg BID for 7 days. Then 400 mg daily for 7 days. Then 200 mg once daily. amlodipine 10 mg PO BEDTIME apixaban (Eliquis) 5 mg PO BID furosemide (Lasix) 20 mg PO DAILY lisinopril 40 mg PO BEDTIME HPI HPI ER visit: Details: Joe is a 55-year-old male with past medical history of hypertension, hyperlipidemia, smoking, hypertensive heart disease, mildly dilated ascending aorta who was recently seen at [facility] then [facility] for elevated heart rate and treated for atrial flutter, Congestive heart failure, hypoxic respiratory failure. He did have a KIRAN cardioversion and was put on amiodarone for rhythm control and Eliquis for anticoagulation. He now presents for follow-up. Today he reports that he has been doing well since his hospital discharge. He has been monitoring his pulse rate using a O2 sat monitor and pulse rate and reports things are normal. Prior to his hospital admission he tells me his heart rate was in the 140s. He was seen at [facility] and states they were concerned he was having alcohol withdrawal. He eventually left A and when his heart rate remain elevated he went to [facility] and was admitted. He is not noticing any heart palpitations. He denies chest discomfort at rest or during activities. No concerning shortness of breath, PND, orthopnea or edema. No bleeding issues reported. He is drinking 3-4 alcoholic beverages 4-5 times weekly which he says is his norm. He reports having a prior evaluation for sleep apnea and he said the study was not good because he woke up several times. He tells me he is a stomach sleeper and even if he needs to wear CPAP he does not believe he will be able to. He is not interested in a sleep study at this time. He has an upcoming appointment with Dr. Hassan for EP and ablation has been discussed. He describes himself as active and tells me he does 10,000 steps per day. PFSH Medical History A-fib HTN (hypertension) HLD (hyperlipidemia) JONATHAN (obstructive sleep apnea) Morbid obesity Nicotine dependence, cigarettes, uncomplicated Lumbar spondylosis Erectile dysfunction Surgical History History of appendectomy History of carpal tunnel surgery History of colonoscopy Family History Mother Lung cancer CAD (coronary artery disease) Father Lung cancer CAD (coronary artery disease) Brother CAD (coronary artery disease) Sister CAD (coronary artery disease) Social History Housing: House Alcohol intake: current Alcohol intake frequency: 0-2 drinks per day Alcohol type: beer Patient Tobacco Use Status: Current everyday Tobacco user Tobacco use type: Cigarette Cigarette Packs Per Day: 0.25 Cigarettes Per Day: 4 Years Smoked: 43 , prior 42 yrs x 1 ppd e-Cigarette/Vaping Use: Never Used Second Hand Smoke Exposure: Yes service: No Current occupational status: unemployed 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 Current occupational exposures/hazards: No Cognitive needs: No Hearing needs: No Vision needs: No Review of Systems Const All systems reviewed & are unremarkable except as noted in HPI and below ENT Denies dizziness Card Denies chest pain, Denies chest pain at rest, Denies chest pain with activity, Denies rapid heart rate, Denies pedal edema, Denies edema, Denies leg edema, Denies lightheadedness, Denies palpitations, Denies dyspnea, Denies dyspnea on exertion and Denies orthopnea Resp Denies cough, Denies dyspnea and Denies dyspnea on exertion GI Denies hematochezia and Denies change in stool character Musc Denies abnormal gait, Denies limited range of motion, Denies muscle cramps, Denies muscle weakness, Denies numbness, Denies radiating pain into limb, Denies stiffness and Denies tingling Neuro Denies abnormal gait, Denies dizziness, Denies numbness and Denies tingling Endo Denies palpitations Physical Exam Vital Signs: Last Vital Signs Pulse 70 07/11/25 09:10 BP 138/80 07/11/25 09:10 BMI result Body Mass Index 41.2 Const General: cooperative, healthy appearing, comfortable and no acute distress Orientation/consciousness: patient oriented x3 Neck Neck: Yes normal visual inspection Resp Effort & Inspection: normal respiratory effort Auscultation: clear to auscultation bilaterally, no rales, no rhonchi and no wheezes Cardio Rate: regular rate Rhythm: regular rhythm Heart sounds: S1 normal heart sound present, S2 normal heart sound present, no gallops, no murmurs and no rubs Neuro General: patient oriented x3 Extrem General: Yes normal to inspection, No no pedal edema and No calf tenderness Psych Appearance: grossly normal Mental Status: mental status grossly normal Speech and movement: Normal speech and movement present Office Procedures EKG Details: Today, read by me, sinus rhythm with first-degree AV block, left anterior fascicular block, poor R-wave progression, rate 70, QTC 466 milliseconds [id number], Complete Assessment & Plan Assessment & Plan (1) Atrial flutter: Code(s): I48.92 - Unspecified atrial flutter Category: Medical Plan: Newer finding of atrial flutter requiring KIRAN cardioversion at [facility] 4 weeks ago. The ED note does mention reduced EF. He was put on amiodarone for rhythm control, Eliquis for anticoagulation and set up with electrophysiology as outpatient. No known recurrent atrial flutter since his hospital discharge. EKG done today showing sinus rhythm with first-degree AV block, left anterior fascicular block, rate 70. Will have him check labs including LFT and TSH to check amiodarone tolerance. He has an upcoming appointment with VENKATESH Bobo to discuss ablation. Will check limited echocardiogram to reassess EF and wall motion now that rhythm control maintained. Diagnosis of AF flutter, stroke risk and need for each medication reviewed with him. Cardiology follow-up 3 months, sooner if needed. (2) CHF (congestive heart failure): Code(s): I50.9 - Heart failure, unspecified Category: Medical Qualifiers: Heart failure chronicity: acute on chronic Heart failure type: unspecified Qualified Code(s): I50.9 - Heart failure, unspecified Plan: Evidence of Congestive heart failure during recent [facility] admission. Notes indicate EF reduced which is likely tachycardia mediated cardiomyopathy. He is on Lasix 20 mg daily at this time. He is not fluid overloaded on examination. Updating echocardiogram as above. (3) Hypertensive heart disease: Code(s): I11.9 - Hypertensive heart disease without heart failure Category: Medical Qualifiers: Heart failure presence: without heart failure Qualified Code(s): I11.9 - Hypertensive heart disease without heart failure Plan: History of hypertension and hypertensive heart disease with last echocardiogram in our system 12/09/2024 showing EF 55-60%, moderate LVH with severe asymmetric septal hypertrophy, moderately dilated left atrium and ascending aorta 4.2 cm. Blood pressure is adequately controlled at this time. Continue amlodipine and lisinopril. (4) Ascending aorta dilatation: Code(s): I77.810 - Thoracic aortic ectasia Category: Medical Plan: Last echo as above showing ascending aorta 4.2 cm.. Will continue with good blood pressure control at and periodic monitoring. (5) HTN (hypertension): Code(s): I10 - Essential (primary) hypertension Category: Medical Qualifiers: Hypertension type: essential hypertension Qualified Code(s): I10 - Essential (primary) hypertension Plan: Blood pressure goal less than 130/80. Near goal today. No med changes made. (6) Hospital discharge follow-up: Code(s): Z09 - Encounter for follow-up examination after completed treatment for conditions other than malignant neoplasm Category: Medical Plan: [facility] and [facility] notes reviewed. Plan We discussed the patient's atrial flutter and the treatment plan involving amiodarone and potential ablation. The risks of long-term amiodarone use, including liver and thyroid dysfunction, were explained. Follow-up with the lumber loader and the importance of monitoring heart rhythm were emphasized. Patient Instructions: - Continue taking amiodarone as prescribed. - Follow up with the lumber loader for ablation consultation. - Monitor heart rate and report any palpitations or rapid heartbeat. - Attend scheduled blood work to monitor liver and thyroid function. Patient was informed and verbally consented to the use of an ambient scribe for clinic note documentation during this visit. Visit time spent on chart review, interview, assessment, orders, documentation. Coding Level of Care Code Est Pt Level 4 (38827) Complex EM visit Add On G2211 Diagnoses Atrial flutter I48.92 Acute on chronic congestive heart failure, unspecified heart failure type I50.9 Heart failure chronicity: acute on chronic Heart failure type: unspecified Hypertensive heart disease without heart failure I11.9 Heart failure presence: without heart failure Ascending aorta dilatation I77.810 Essential hypertension I10 Hypertension type: essential hypertension Hospital discharge follow-up Z09 CPT Codes EKG - CPT: 60677-[id number], Complete ([id number]) Time Spent (min) 36
== END 2025-07-11 09:47 | disposition home or self-care (01) ==
LOC: HO.HCS 09:06
PROVIDERS: PCP Physician Assistant; Visit Provider Nurse Practitioner Family
DX: I48.92 Unspecified atrial flutter (principal); I50.9 Heart failure, unspecified; I11.9 Hypertensive heart disease without heart failure; I77.810 Thoracic aortic ectasia; I10 Essential (primary) hypertension; Z09 Encounter for follow-up examination after completed treatment for conditions other than malignant neoplasm
CPT/HCPCS: 93010; 99214

== ENCOUNTER → 2025-07-11 09:05 | Outpatient (BNVA) | payer OTHER, SELFPAY | PROVIDERS: PCP Physician Assistant; Visit Provider Nurse Practitioner Family | DX: Z09 Encounter for follow-up examination after completed treatment for conditions other than malignant neoplasm (principal); I11.0 Hypertensive heart disease with heart failure; I50.9 Heart failure, unspecified; I48.20 Chronic atrial fibrillation, unspecified; I44.0 Atrioventricular block, first degree; I44.4 Left anterior fascicular block; I77.810 Thoracic aortic ectasia; F17.210 Nicotine dependence, cigarettes, uncomplicated; Z79.01 Long term (current) use of anticoagulants | CPT/HCPCS: 93005; 99212 ==

== ENCOUNTER 2025-07-18 11:44 | Outpatient (AMB) | payer OTHER, SELFPAY ==
--- NOTE | 2025-07-18 11:48 | MHC.OFFVIS ---
Vital Signs 07/18/25 11:54 Height 6 ft Weight 292 lb 12.382 oz BMI 39.7 BP 152/100 H Blood Pressure Location Lt brachial Position Sitting Pulse 80 Pulse Source Pulse Oximeter Pulse Oximetry (%) 95 Oxygen Delivery Method Room Air Intake Visit Reasons: michell knee injection Intake Note: Patient presents for bilateral knee injection follow up. Allergies No Known Allergies Allergy (Verified 07/18/25 11:53) HPI Comments Details: Patient is a 55 y.o. male current every day smoker with hypertension complicated by hypertensive heart disease and CAD, HLD, polyarticular OA and sciatica presents today for follow up Interval History: Patient last seen 03/10/25 - Not on any rheum meds - Injection given to right subacromial bursa Today - Not on any rheum meds - Right shoulder improved - Complaining left knee pain Rheumatologic History: Polyarticular OA Initial History: Patient is a 54 y.o. 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 No personal or family history of psoriasis, rheumatoid arthritis or any autoimmune disease. Of note he is having an exacerbation of his right shoulder. Noted that about 2-3 weeks ago he fell on ice and injured his right shoulder. Requesting an injection today Current Rheumatology Medication(s): [facility] Medical History A-fib HTN (hypertension) HLD (hyperlipidemia) JONATHAN (obstructive sleep apnea) Morbid obesity Nicotine dependence, cigarettes, uncomplicated Lumbar spondylosis Erectile dysfunction Surgical History History of appendectomy History of carpal tunnel surgery History of colonoscopy Family History Mother Lung cancer CAD (coronary artery disease) Father Lung cancer CAD (coronary artery disease) Brother CAD (coronary artery disease) Sister CAD (coronary artery disease) Social History Housing: House Alcohol intake: current Alcohol intake frequency: 0-2 drinks per day Alcohol type: beer Patient Tobacco Use Status: Current everyday Tobacco user Tobacco use type: Cigarette Cigarette Packs Per Day: 0.25 Cigarettes Per Day: 4 Years Smoked: 43 , prior 42 yrs x 1 ppd e-Cigarette/Vaping Use: Never Used Second Hand Smoke Exposure: Yes service: No Current occupational status: unemployed 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 Current occupational exposures/hazards: No Cognitive needs: No Hearing needs: No Vision needs: No Review of Systems Narrative Review of Systems Constitutional: Denies fever, chills, weight loss ENT: Denies vision changes, eye pain or eye redness, dental caries, dry mouth GI: Denies nausea, vomiting, diarrhea, abdominal pain, change in BM Pulm: Denies SOB, BERNAL, hemoptysis, wheezing Cards: Denies chest pain, palpitations Skin: Denies Raynaud's, rash, nail changes, photosensitivity, MILK SAMPLER: Denies headaches, weakness, paresthesias, recurrent falls MSK: as per HPI All other systems reviewed and are unremarkable except noted above Physical Exam Exam Exam: Vital signs reviewed Physical Examination CONSTITUITIONAL Patient alert and cooperative. Well appearing and in no apparent painful distress MSK Knees Right knee: Full ROM. No swelling noted. No TTP of pes anserine bursa. No TTP of the knee joint line. Left knee: Full ROM. No swelling noted. TTP of the knee joint line. No TTP of pes anserine bursa. Crepitations felt bilaterally Vital Signs: Last Vital Signs Pulse 80 07/18/25 11:54 BP 152/100 H 07/18/25 11:54 Pulse Ox 95 07/18/25 11:54 Oxygen Delivery Method Room Air 07/18/25 11:54 BMI result Body Mass Index 39.7 Office Procedures AMB Joint Injection/Aspiration Joint Injection/Aspiration Details: Procedure was explained to the patient and informed consent was obtained. ? Risks associated with the procedure were discussed with the patient including but not limited to bleeding, infection, drug reactions and reactions to the topical anesthetic. Patient made aware of signs to look out for infectious complications. The area of interest was identified and confirmed with patient. ?This was subsequently cleaned with chlorhexidine x 2. ? The area was then anesthetized using ethyl chloride spray. 40 mg Kenalog with 1 cc 1% lidocaine was injected without issue. ?Minimal to no bleeding. ?Patient tolerated procedure. Primary Site: left knee Prep: site was prepped using aseptic technique and ethochloride spray was applied Injected: 40 mg of, Kenalog, with 1 mL of, 1% plain lidocaine and in the joint Approach Used: anterior Procedure: The patient tolerated the procedure well Coding 50520 - Large joint Procedure code (CPT) selection complete Office Meds lidocaine (PF) 10 mg/mL (1 %) injection solution Performing Provider: Teresa Mojica MD Performing Location: [facility] Administered by: Linda Rocha RN on 07/18/25 12:12 Dose Route Admin Location Dispensed Lot Number Expiration Date [facility] [employer] 1 mL intra articular left knee 2 mL [id number] 12/12/26 58673-459-54 [employer] Total Dispensed Waste 2 mL 50 % Kenalog 40 mg/mL suspension for injection Performing Provider: Teresa Mojica MD Performing Location: [facility] Administered by: Linda Rocha RN on 07/18/25 12:12 Dose Route Admin Location Dispensed Lot Number Expiration Date [facility] [employer] 40 mg intra-articular left knee 1 mL [id number] 03/13/27 [address]-5 [employer] Total Dispensed Waste 1 mL 0 % Results Reviewed Results Reviewed: Laboratory Tests 06/10/25 10:00 WBC 6.5 RBC 4.05 L Hgb 13.1 L Hct 39.3 L Plt Count 167 Sodium 143 Potassium 4.2 Chloride 109 H Carbon Dioxide 26 BUN 13 Creatinine 0.64 AST 25 ALT 36 XR Left Knee 06/2025 FINDINGS: No fracture. Small effusion. Alignment is anatomic. Joint spaces are maintained. No abnormal soft tissue calcification. IMPRESSION: No evidence of acute fracture. Small effusion. Assessment & Plan Assessment & Plan (1) Osteoarthritis of knees, bilateral: Code(s): M17.0 - Bilateral primary osteoarthritis of knee Qualifiers: Osteoarthritis type: primary Qualified Code(s): M17.0 - Bilateral primary osteoarthritis of knee Plan: #Bilateral Knee OA Patient is a 55-year-old male with polyarticular osteoarthritis here today for follow up. Currently complaining of left knee pain consistent with osteoarthritis Plan - S/p steroid injection - RTC prn Plan I spent 20 minutes reviewing the record and labs, taking a history, examining the patient, discussing the treatment plan, ordering diagnostic work up and documenting in the medical record Orders: Orders AMB Joint Injection/Aspiration Today M17.12 - Unilateral primary osteoarthritis, left knee Coding Level of Care Code Est Pt Level 3 (46991) Diagnoses Primary osteoarthritis of both knees M17.0 Osteoarthritis type: primary CPT Codes Coding - 72499 Large joint: 55032 - Large joint ([id number])
[2025-07-18 11:54] VITALS: BP 152/100; PULSE 80; O2SAT 95; BMI 39.7
--- OUTSIDE RECORDS SUMMARY | 2025-07-18 14:28 | XMS_ITS | Patient Health Record ---
Author Organization [facility] Address [address] [place] [address] Care Team Providers Care Powdered Sugar Supervisor Name Role Phone Juwan Gupta Primary Care Provider Unavailab Marcio Mckeon Unavailable [phone] Reason For Referral No Information Medications Medication [...] Problem Screening for malignant neoplasm of colon ([id number]) Encounter for screening for malignant neoplasm of colon (Z12.11) Active confirmed Problem Preprocedural examination ([id number]) Preprocedural examination (Z01.818) Active confirmed Plan Of Treatment Future Test Test Name Order Date COLONOSCOPY 09/22/2018 Insurance Providers Payer Name Payer Address Payer Phone Subscriber Number Group Number Insured Name Patient Relationship to Insured Coverage Start Date Coverage End Date [facility] CLAIMS [address] [place] [address] [id number] Self - patient is the insured Medical (General) History Medical History History ICD Code Hypertension Denies [place],DM,CVA,Lung disease,renal dise ase Surgical History Surgery Date(Month/Year) Carpal tunnel release-both Appendectomy
== END 2025-07-18 12:23 | disposition home or self-care (01) ==
LOC: HO.RHES 11:44
PROVIDERS: PCP Physician Assistant; Visit Provider Student in an Organized Health Care Education/Training Program
DX: M17.12 Unilateral primary osteoarthritis, left knee (principal)
CPT/HCPCS: 20610; 99213

== ENCOUNTER → 2025-07-18 11:44 | Outpatient (BNVA) | payer OTHER, SELFPAY | PROVIDERS: PCP Physician Assistant; Visit Provider Student in an Organized Health Care Education/Training Program | DX: M17.12 Unilateral primary osteoarthritis, left knee (principal) | CPT/HCPCS: 20610; 99212; J2003; J3301 ==

== ENCOUNTER 2025-08-25 06:13 | Outpatient (REF) | payer OTHER, SELFPAY ==
--- OUTSIDE RECORDS SUMMARY | 2025-08-25 06:17 | XMS_ITS | Patient Health Record ---
Author Organization [facility] Address [address] [place] [address] Care Team Providers Care Candlemaker Name Role Phone Juwna Gupta Primary Care Provider Unavailab Marcio Mckeon Unavailable [phone] Reason For Referral No Information Medications Medication SIG (Take, Route, Frequency, Duration) Notes Start Date End Date Status Lisinopril 40 MG Tablet 1 tablet Orally Once a day; Duration: 30 day(s) Active Norvasc 10 MG Tablet 1 tablet Orally Onc e a day; Duration: 30 day(s) Active oxyCODONE HCl 5 MG Capsule 1 capsule as needed Orally PRN Rare--for back pain Active Immunizations Vaccine Route Administration Date Status Comme nts Influenza Unknown 09/22/2018 Refused Social History Tobacco Use: Social History Observation Description Date Details (start date - stop date) Former Smoker NA - NA Social History Drugs/Alcohol: Social Info Question Answer Notes Alcohol Screen Did you have a drink containing alcohol in the past year? Yes How often did you have a drink containing alcohol in the past year? Monthly or less (1 point) How many drinks did you have on a typical day when you were drinking in the past year? 5 or 6 drinks (2 points) How often did you have 6 or more drinks on one occasion in the past year? Less than monthly (1 point) Points 4 Interpretation Positive Tobacco Use: Social Info Question Answer Notes Tobacco Use/Smoking Patient is a former smoker How long has it been since you last smoked? 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 [employer] Section Notes: Nonsmoker x 1 year; no sig a lcohol Problems Problem Type SNOMED Code ICD Code Onset Dates Problem Status W/U Status Risk Notes Problem Screening for malignant neoplasm of colon (665610664) Encounter for screening for malignant neoplasm of colon (Z12.11) Active confirmed Problem Preprocedural examination ([id number]) Preprocedural examination (Z01.818) Active confirmed Plan Of Treatment Future Test Test Name Order Date COLONOSCOPY 09/22/2018 Insurance Providers Payer Name Payer Address Payer Phone Subscriber Number Group Number Insured Name Patient Relationship to Insured Coverage Start Date Coverage End Date [facility] PROFESSIONAL CLAIMS [address] [place] [address] [id number]M Self - patient is the insured Medical (General) History Medical History History ICD Code Hypertension Denies [place],DM,CVA,Lung disease,renal dise ase Surgical History Surgery Date(Month/Year) Carpal tunnel release-both Appendectomy
[2025-08-25 07:15] LABS: Hematocrit 46.9 % (42.0-52.0); Hemoglobin 15.8 g/dl (14.0-18.0); Mean Corpuscular HGB Conc 33.7 g/dl (31.0-36.0); Mean Corpuscular Hemoglobin 32.5 pg (27.0-33.0); Mean Corpuscular Volume 96.5 fL (80.0-98.0); NRBC Abs Auto 0.000 X10*3/uL (0.0-0.012); NRBC Pct Auto 0.0 /100WBC (0.0-0.2); Platelet Count 138 X10*3/uL (160-400); Red Blood Count 4.86 X10*6/uL (4.60-5.80); White Blood Count 5.4 X10*3/uL (4.8-10.8)
[2025-08-25 07:44] LABS: Alanine Aminotransferase 23 U/L (0-40); Albumin Level 4.6 g/dL (3.5-5.0); Alkaline Phosphatase 83 U/L (39-117); Anion Gap 12 (12-20); Aspartate Amino Transferase 25 U/L (5-37); Blood Urea Nitrogen 11 mg/dL (9-16); Calcium 8.8 mg/dL (8.4-10.2); Carbon Dioxide 29 mmol/L (22-29); Chloride 104 mmol/L (96-108); Cholesterol 190 mg/dL (<200); Estimated Glomerular Filt Rate > 60; HDL Cholesterol 50 mg/dL (>40); Potassium 4.1 mmol/L (3.3-5.1); Sodium 141 mmol/L (135-145); Total Protein 7.1 g/dL (6.5-8.0); Triglycerides 72 mg/dL (<150)
== END 2025-08-25 06:14 | disposition home or self-care (01) ==
LOC: HO.LAB 06:13
PROVIDERS: Nurse Practitioner Family; PCP Physician Assistant; Visit Provider Physician Assistant
DX: I11.9 Hypertensive heart disease without heart failure (principal); I48.92 Unspecified atrial flutter; E78.2 Mixed hyperlipidemia
CPT/HCPCS: 36415; 80053; 80061; 84443; 85027

== ENCOUNTER 2025-09-04 14:32 | Outpatient (AMB) | payer OTHER, SELFPAY ==
--- NOTE | 2025-09-04 14:44 | A.OFFVIS_ITS ---
Intake Visit Reasons: right foot/heel pain Intake Note: 55 year old male coming in for a possible right heel spur ,one year the pain been bothering the heel. only stretching helps a little.. Passed history of the left foot heel spur,sound tharipy helped the left side but no treatment on the right side. left big toe fungal Allergies No Known Allergies Allergy (Verified 08/28/25 15:39) HPI HPI right foot/heel pain: Details: The patient is a 55 year old male presenting with right foot and heel pain. Right heel pain: The patient reports right heel pain that has been present for approximately one year. The pain is localized to the posterior heel and is described as agonizing when he gets up at night. Stretching provides temporary relief. He has a history of the same issue on the other foot and has had tendonitis treated twice before with shockwave therapy, which was effective. He states his job requires him to be on his feet all the time. PMH of Atrial Fibrillation and Aortic Dilatation: The patient has a history of atrial fibrillation and aortic dilatation, for which he is followed by cardiology. He has been on Eliquis for about two months. Claustrophobia: The patient reports significant claustrophobia, which prevented him from completing a previous cardiac MRI because the machine was too enclosed. Onychomycosis: The patient has a longstanding issue with toenail fungus which is currently more aggravated than usual. He has tried various treatments, including prescribed wipes and jglb-ygd-wdlkscw remedies like Vicks VapoRub, without success. Plantar Wart: A lesion on his left big toe has been present for years, which he had thought was a callus. It occasionally bleeds when he files it, a symptom that was present even before he started taking blood thinners. He has no prior history of warts. Medical History: - Atrial fibrillation - Aortic dilatation, under care of cardiology - Claustrophobia, with inability to tolerate closed MRI - Remote history of rotator cuff and knee issues - History of bone spurs treated with shockwave therapy Social History: - Employment: The patient works a job where he is on his feet consistently. [facility] Medical History A-fib HTN (hypertension) HLD (hyperlipidemia) JONATHAN (obstructive sleep apnea) Morbid obesity Nicotine dependence, cigarettes, uncomplicated Lumbar spondylosis Erectile dysfunction Surgical History History of appendectomy History of carpal tunnel surgery History of colonoscopy Family History Mother Lung cancer CAD (coronary artery disease) Father Lung cancer CAD (coronary artery disease) Brother CAD (coronary artery disease) Sister CAD (coronary artery disease) Social History (Updated 08/28/25 @ 15:43 by DILMA Zamora) Housing: House Alcohol intake: current Alcohol intake frequency: holidays/special occasions only Alcohol type: beer Patient Tobacco Use Status: Current someday Tobacco user Tobacco use type: Cigarette Cigarette Packs Per Day: 0.25 Cigarettes Per Day: 4 Years Smoked: 41 , prior 40 yrs x 1 ppd e-Cigarette/Vaping Use: Never Used Second Hand Smoke Exposure: Yes service: No Current occupational status: employed 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 varicosities present to the right ankle and lower extremity Derm: - Bilateral hallux nails with dystrophic, thickened, diffuse yellow discoloration changes, 20 % distal onycholysis and longitudinal ridging. - Left hallux distal tuft with hyperkeratosis and pinpoint bleeding upon debridement. Neuro: Protective sensation grossly intact to bilateral lower extremities MSK: Moderate tenderness on palpation of the Achilles tendon at its insertion right lower extremity. Ankle dorsiflexion 5 degrees on knee extension, 10 degrees on knee flexion. Office Procedures AMB Wart Destruction Podiatry Details of Procedure: Procedure: Wart destruction Location: Left hallux Anesthesia: N/A Description: The affected area was cleansed with an antiseptic solution. Using a sterile #15 blade, the hyperkeratotic tissue was radially debrided from the foot. Next, salicylic acid was applied using an applicator to the wart, and occluded using a band-aid. Tolerance: Patient tolerated procedure well, no immediate complications. 06106 - Wart Destruction (<15) Procedure code (CPT) selection complete Office Meds salicylic acid 27.5 % topical film-forming liquid Performing Provider: Per Vasquez DPM Performing Location: [facility] Administered by: Per Vasquez DPM on 09/04/25 19:46 Dose Route Admin Location Dispensed Lot Number Expiration Date [facility] Business Support Coordinator 1 appl topical 10 mL [id number] SURYA JENNINGS Assessment & Plan Assessment & Plan (1) Tinea unguium: Code(s): B35.1 - Tinea unguium Category: Medical Plan: * Nail clipping sent to evaluate for fungus bilateral hallux nails. * Discussed treatment options including topical treatment versus oral antifungal medications. * Rx ciclopirox (2) Achilles tendinitis of right lower extremity: Code(s): M76.61 - Achilles tendinitis, right leg Category: Medical Plan: * Discussed the etiology of his right ankle pain. * A referral was placed for physical therapy to include ultrasound, heat modalities, stretching, and strengthening exercises. * Rx right ankle MRI. Patient requires an MRI due to chronic pain for over a year and with a palpable bone spur, which may require treatment. The patient is claustrophobic and will likely receive his MRI outside of the [facility] system to find an open MRI. * A night splint was dispensed for the right ankle * A list of Achilles exercises was provided to the patient (3) Greg deformity of right heel: Code(s): M92.61 - Juvenile osteochondrosis of tarsus, right ankle Category: Medical Plan: * Rx right ankle x-rays (4) Verruca plantaris: Code(s): B07.0 - Plantar wart Category: Medical Plan: * Salicylic acid treatment was performed of the left hallux * F/u in 2 weeks Orders: Orders Fungus Cult Hair/Skin/Nail Today B35.1 - Tinea unguium Surgical Today B35.1 - Tinea unguium XR ankle RT min 3V Today M92.61 - Juvenile osteochondrosis of tarsus, right ankle PT Evaluation and Treatment Today M76.61 - Achilles tendinitis, right leg AMB Wart Destruction Podiatry Today B07.0 - Plantar wart MR ankle RT wo con Today M76.61 - Achilles tendinitis, right leg, M92.61 - Juvenile osteochondrosis of tarsus, right ankle Medications: New ciclopirox 8% Apply to fungal toenails daily. Remove build-up at the end of the week. 1 appl topical BEDTIME 4 months 6.6 mL 0RF Fungal nails B35.1 - Tinea unguium Coding Level of Care Code New Pt Level 4 (23785) Diagnoses Tinea unguium B35.1 Achilles tendinitis of right lower extremity M76.61 Greg deformity of right heel M92.61 Verruca plantaris B07.0 CPT Codes Destruction of Wart - CPT: 68344 - Wart Destruction (<15) ([id number]) Time Spent (min) 35
--- OUTSIDE RECORDS SUMMARY | 2025-09-04 17:56 | XMS_ITS | Patient Health Record ---
Author Organization [facility] Address [address] [place] [address] Care Team Providers Care Ad Setter Name Role Phone Juwan Gupta Primary Care Provider Unavailab Marcio Mckeon Unavailable [phone] Reason For Referral No Information Medications Medication [...] Problem Screening for malignant neoplasm of colon (466886781) Encounter for screening for malignant neoplasm of colon (Z12.11) Active confirmed Problem Preprocedural examination ([id number]) Preprocedural examination (Z01.818) Active confirmed Plan Of Treatment Future Test Test Name Order Date COLONOSCOPY 09/22/2018 Insurance Providers Payer Name Payer Address Payer Phone Subscriber Number Group Number Insured Name Patient Relationship to Insured Coverage Start Date Coverage End Date [facility] PROFESSIONAL CLAIMS [address] [place] [address] [id number] EL[address] HELM Self - patient is the insured Medical (General) History Medical History History ICD Code Hypertension Denies GA,DM,CVA,Lung disease,renal dise ase Surgical History Surgery Date(Month/Year) Carpal tunnel release-both Appendectomy
== END 2025-09-04 16:04 | disposition home or self-care (01) ==
LOC: HO.HPODS 14:32
PROVIDERS: PCP Physician Assistant; Visit Provider Student in an Organized Health Care Education/Training Program
DX: B35.1 Tinea unguium (principal); M76.61 Achilles tendinitis, right leg; M92.61 Juvenile osteochondrosis of tarsus, right ankle; B07.0 Plantar wart
CPT/HCPCS: 17110; 99204

== ENCOUNTER 2025-09-04 14:32 | Outpatient (REF) | payer OTHER, SELFPAY | END 2025-09-04 14:33 | disposition home or self-care (01) | LOC: HO.LNP 14:32 | PROVIDERS: PCP Physician Assistant; Visit Provider Student in an Organized Health Care Education/Training Program | DX: B35.1 Tinea unguium (principal); M76.61 Achilles tendinitis, right leg; M92.61 Juvenile osteochondrosis of tarsus, right ankle; B07.0 Plantar wart | CPT/HCPCS: 17110; 87101; 87220; 88304; 88305; 88311; 88312; 99202 ==

== ENCOUNTER 2025-09-12 14:57 | Outpatient (AMB) | payer OTHER, SELFPAY ==
[2025-09-12 15:05] VITALS: BP 128/76; PULSE 77; O2SAT 93; BMI 42.7
--- NOTE | 2025-09-12 15:05 | MHC.OFFVIS ---
Vital Signs 09/12/25 15:05 Height 5 ft 10 in Weight 297 lb 8 oz BMI 42.7 BP 128/76 Blood Pressure Location Lt brachial Position Sitting Pulse 77 Pulse Source Pulse Oximeter Pulse Oximetry (%) 93 Oxygen Delivery Method Room Air Intake Visit Reasons: Hypoxemia, Nicotine dependence Allergies No Known Allergies Allergy (Verified 09/12/25 15:08) HPI Comments Details: Joe is a pleasant 55 year old male, current 45+ year smoker, with underlying atrial fibrillation, HTN and HLD. He was referred by PCP presenting for evaluation of possible Chronic Obstructive Pulmonary Disease (COPD). Three months ago he was hospitalized for a week at [facility] after presenting to urgent care with a pulse rate of 143 and low oxygen levels, no records to review. During that admission, he underwent cardioversion and is now on medication to control his heart rate while awaiting a cardiac ablation. A home sleep study from 2021 revealed severe obstructive sleep apnea, with 37 breathing cessations per hour. His oxygen level dropped to a chris of 50% during the study, and his average oxygen saturation during sleep was 84%. The patient reports he will not use a CPAP machine as he sleeps on his stomach, nor is he ready for an implant. He owns an oxygen concentrator but has only used it on one occasion. Regarding his pulmonary status, a lung screening CT scan in November showed a 4 mm nodule in the right upper lobe. A subsequent CT scan during his hospitalization in May showed this nodule had grown to approximately 8 mm and appeared more dense. He has a significant family history of lung cancer, noting that everybody in his family had it. The patient has a history of smoking since age 10 or 11, previously smoking a pack a day and now smoking a quarter of a pack daily. 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 He also reports childhood exposure to asbestos from pipes in his basement. He reports a chronic productive cough with beige sputum and occasional wheezing that clears with coughing. He does not report significant shortness of breath with exertion and can climb stairs without difficulty. Pulmonology History - History of smoking since age 12-13, currently smokes 0.25 packs per day, with a past history of smoking 1 pack per day. - 40-year history of occupational exposure as a electro mechanic to asbestos, paint, and diesel smoke. - CT scan in November revealed a 4 mm right upper lobe nodule. - CT scan in May showed the right upper lobe nodule had increased in size to 6 mm and appeared more dense. - Home sleep study revealed severe obstructive sleep apnea with nocturnal hypoxemia to 50%. - Chronic productive cough - Intermittent wheezing that resolves with coughing. - No personal history of asthma or recurrent bronchitis/pneumonia. Results - Home Sleep Study: Showed an apnea-hypopnea index (AHI) of 37 events per hour, consistent with severe obstructive sleep apnea. Nocturnal oxygen saturation dropped to a chris of 50% and averaged 84%. - Chest CT (November): Revealed a 4 mm nodule in the right upper lobe. - Chest CT (May): Showed the right upper lobe nodule had increased in size to approximately 6 mm and appeared more dense compared to the November scan. No asbestos-related plaques were seen. [facility] Medical History A-fib HTN (hypertension) HLD (hyperlipidemia) JONATHAN (obstructive sleep apnea) Morbid obesity Nicotine dependence, cigarettes, uncomplicated Lumbar spondylosis Erectile dysfunction Surgical History History of appendectomy History of carpal tunnel surgery History of colonoscopy Family History Mother Lung cancer CAD (coronary artery disease) Father Lung cancer CAD (coronary artery disease) Brother CAD (coronary artery disease) Sister CAD (coronary artery disease) Social History Housing: House Alcohol intake: current Alcohol intake frequency: holidays/special occasions only Alcohol type: beer Patient Tobacco Use Status: Current someday Tobacco user Tobacco use type: Cigarette Cigarette Packs Per Day: 0.25 Cigarettes Per Day: 4 Years Smoked: 41 , prior 42 yrs x 1 ppd e-Cigarette/Vaping Use: Never Used Second Hand Smoke Exposure: Yes service: No Current occupational status: employed 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 Current occupational exposures/hazards: No Cognitive needs: No Hearing needs: No Vision needs: No Review of Systems Narrative Const Denies chills, Denies excessive sweating, Denies fever(s), Denies headache(s) and Denies night sweats Eyes Denies dry eyes, Denies irritation and Denies itchy eyes ENT Reports Normal hearing present, Denies headache(s), Denies nasal congestion, Denies nasal discharge, Denies post nasal drip and Denies sore throat Card Denies chest pain, Denies chest pain at rest, Denies chest pain with activity, Denies claudication, Denies leg edema, Denies dyspnea, Denies dyspnea on exertion, Denies orthopnea and Denies paroxysmal nocturnal dyspnea Resp Denies chest congestion, Denies excessive phlegm production, Denies pain on inspiration, Denies pain with cough, Denies dyspnea, Denies dyspnea on exertion, Denies stridor and Denies wheezing Musc Denies myalgias Neuro Reports Normal hearing present and Denies headache(s) Endo Denies excessive sweating Nimesh/Lymph Denies lymphadenopathy Aller/Immun Denies itchy eyes, Denies seasonal rhinorrhea and Denies wheezing Physical Exam Exam Exam: Vital Signs: Last Vital Signs Pulse 77 09/12/25 15:05 BP 128/76 09/12/25 15:05 Pulse Ox 93 09/12/25 15:05 Oxygen Delivery Method Room Air 09/12/25 15:05 BMI result Body Mass Index 42.7 Const General: cooperative, healthy appearing, comfortable, no acute distress, well developed and alert Nutritional Appearance: obese Orientation/consciousness: patient oriented x3 Limitations: no limitations HEENT Head: Yes normal to inspection, Yes normocephalic and Yes atraumatic Ears: hearing grossly normal bilaterally and external ears normal Eyes General: appearance normal, both eyes and all related structures Eyelids: Yes eyelids normal Sclerae: sclerae normal EOM: EOMs intact bilaterally Neck Neck: Yes normal visual inspection and Yes no lymphadenopathy Lymphatic: no lymphadenopathy noted Chest Chest palpation & inspection: normal inspection of the chest Resp Effort & Inspection: normal respiratory effort, able to speak in complete sentences, no audible wheezes, no cough, no stridor, not tachypneic, no tripod positioning and no use of accessory muscles Auscultation: diminished lung sounds Cardio Jugular venous distension: no JVD Rate: regular rate Rhythm: regular rhythm Skin Other: warm, dry General skin exam: no rashes or lesions noted Neuro General: patient oriented x3 Cranial nerves: Yes Normal hearing present Cognition (Neuro): normal cognition Gait exam (Neuro): Normal gait present Extrem General: Yes normal to inspection, Yes capillary refill normal, Yes no clubbing, cyanosis or edema and Yes no pedal edema Psych Appearance: grossly normal and well kempt Speech and movement: Normal speech and movement present and Clear speech present Affect: normal affect Attitude: cooperative Thought process: Normal thought process present Thought content: Normal thought content present Insight: Good insight present (Psych) Judgement: Good judgement present (Psych) Results Reviewed Results Reviewed: [address] [address] [address] Scan Report Signed Patient: Joe Esquivel MR#: [id number] : 1970 Acct:[id number] Age/Sex: 55 / M ADM Date: 06/10/25 Loc: .ED Attending Dr: Ordering Physician: Alyssia Lopez NP Date of Service: 06/10/25 Procedure(s): CT angio chest PE protocol Accession Number(s): [id number] cc: Juwan Gupta PA-C; Alyssia Lopez NP~ Report Number: [id number]: Total DLP = 611.00 mGy-cm Reason for Exam: hypoxia,tachypnea, tachycardia, r/o pe CLINICAL HISTORY: hypoxia,tachypnea, tachycardia, r o pe CT angiography chest with contrast. MIP postprocessing. Comparison: CR - XR CHEST 1V - 06/10/25 11:[address]/SR - CT LUNG SCREENING - 11/22/24 16:29 EDT Findings: Images degraded by patient motion. This limits evaluation of the pulmonary arteries, especially the smaller segmental and subsegmental pulmonary arteries. Given limitation, no pulmonary emboli identified. Thoracic aorta is nonaneurysmal. Mild denny chamber cardiac enlargement with hypertrophy of the left ventricular wall and interventricular septum. Mildly prominent lymph nodes within the mediastinum and hilum measure up to 14 mm in short axis. Small bilateral pleural effusions. Dense areas of consolidation within the lower lobes bilaterally. Increasing size of pulmonary nodules within the right upper lobe measuring 8 mm in size. These previously measured 4-5 mm in size. No pneumothorax. Induration seen throughout the subcutaneous fat of the lower chest anteriorly. No free fluid or free air within the upper abdomen. Degenerative change throughout the thoracolumbar spine without acute bony abnormality. IMPRESSION: 1. No pulmonary emboli given the limitation of the patient motion. 2. Small bilateral pleural effusions with dense bilateral lower lobe consolidation most characteristic of pneumonia. 3. Increasing size of pulmonary nodules within the right upper lobe. This may be related to infectious, inflammatory, or neoplastic etiologies. Given that these are increased in size compared to the patient's prior study, follow up CT of the chest in 3 months suggested versus PET-CT. 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: Assessment & Plan Assessment & Plan (1) Shortness of breath: Code(s): R06.02 - Shortness of breath Category: Medical (2) Pulmonary nodule: Code(s): R91.1 - Solitary pulmonary nodule Category: Medical (3) JONATHAN (obstructive sleep apnea): Code(s): G47.33 - Obstructive sleep apnea (adult) (pediatric) Category: Medical (4) Nocturnal hypoxemia: Code(s): G47.34 - Idiopathic sleep related nonobstructive alveolar hypoventilation Category: Medical (5) Nicotine dependence, cigarettes, uncomplicated: Comment: (onset 10, 1ppd x 42yrs, now 1/2ppd, 40pyh) Code(s): F17.210 - Nicotine dependence, cigarettes, uncomplicated Category: Medical Plan Reviewed the results of the patient's home sleep study, explaining that it showed severe obstructive sleep apnea with an AHI of 37 and a concerning drop in oxygen to 50%. Explained that this untreated sleep apnea puts a significant strain on the body, particularly the heart, and increases the risk for abnormal heart rhythms. Since he is unwilling to try CPAP, strongly recommended he use his home oxygen concentrator at 2 liters nightly to at least address the severe nocturnal hypoxemia. Reviewed with the patient a comparison of his CT scans from November and May, illustrating increasing size of pulmonary nodules within the right upper lobe measuring 8 mm in size. These previously measured 4-5 mm in size. Given this change, along with his smoking history and strong family history of lung cancer, recommended a repeat CT scan now rather than waiting for annual LDCT in November. We discussed that if the nodule continues to change, options include continued close monitoring or a referral to thoracic surgery for a possible wedge resection, noting a biopsy or PET scan would be difficult for a nodule of this size. Explained the need for a formal breathing test (PFT) to assess his lung function and diagnose potential COPD, given his symptoms and risk factors. We will defer starting any inhalers until after those results are available. A follow-up visit is planned for mid-November to review the results of the CT scan and PFT. Advised him to call if his breathing worsens, or if he has increased coughing or wheezing. All questions were answered and patient is in agreement of plan. Patient Instructions - You will receive a call to schedule a chest CT in the next few weeks as well as a PFT. - It is highly recommended that you use your home oxygen machine every night while you sleep. Set the flow to 2 liters per minute. - Continue to work on quitting smoking. - Call our office if you experience worsening shortness of breath, more coughing, or new or increased wheezing. - Plan to follow up in our office around mid-November to review the results of your tests. Patient was informed and verbally consented to the use of an ambient scribe for clinic note documentation during this visit. Orders: Orders PFT pulmonary function test Today R06.02 - Shortness of breath CT chest wo IV con Today R91.1 - Solitary pulmonary nodule Coding Level of Care Code New Pt Level 4 (64700) Diagnoses Shortness of breath R06.02 Pulmonary nodule R91.1 JONATHAN (obstructive sleep apnea) G47.33 Nocturnal hypoxemia G47.34 Nicotine dependence, cigarettes, uncomplicated F17.210
--- OUTSIDE RECORDS SUMMARY | 2025-09-12 18:33 | XMS_ITS | Patient Health Record ---
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 Name Role Phone Juwan Gupta Primary Care Provider Unavailab Marcio Mckeon Unavailable [phone] Reason For Referral No Information Medications Medication [...] Problem Screening for malignant neoplasm of colon ([id number]) Encounter for screening for malignant neoplasm of colon (Z12.11) Active confirmed Problem Preprocedural examination ([id number]) Preprocedural examination (Z01.818) Active confirmed Plan Of Treatment Future Test Test Name Order Date COLONOSCOPY 09/22/2018 Insurance Providers Payer Name Payer Address Payer Phone Subscriber Number Group Number Insured Name Patient Relationship to Insured Coverage Start Date Coverage End Date [facility] PROFESSIONAL CLAIMS [address] [place] [address] [id number] EL[address] HELM Self - patient is the insured Medical (General) History Medical History History ICD Code Hypertension Denies NM,DM,CVA,Lung disease,renal dise ase Surgical History Surgery Date(Month/Year) Carpal tunnel release-both Appendectomy
== END 2025-09-12 15:45 | disposition home or self-care (01) ==
LOC: HO.HPSW 14:57
PROVIDERS: PCP Physician Assistant; Visit Provider Nurse Practitioner Family
DX: R06.02 Shortness of breath (principal); R91.1 Solitary pulmonary nodule; G47.33 Obstructive sleep apnea (adult) (pediatric); G47.34 Idiopathic sleep related nonobstructive alveolar hypoventilation; F17.210 Nicotine dependence, cigarettes, uncomplicated
CPT/HCPCS: 99214

== ENCOUNTER → 2025-09-12 14:57 | Outpatient (BNVA) | payer OTHER, SELFPAY | PROVIDERS: PCP Physician Assistant; Visit Provider Nurse Practitioner Family | DX: G47.34 Idiopathic sleep related nonobstructive alveolar hypoventilation (principal); G47.33 Obstructive sleep apnea (adult) (pediatric); R91.1 Solitary pulmonary nodule; R06.02 Shortness of breath; F17.210 Nicotine dependence, cigarettes, uncomplicated | CPT/HCPCS: 99212 ==